=== PATIENT | male | born 1980 | race Caucasian/White ===

== ENCOUNTER → 2018-09-05 16:51 | Outpatient (CLI) | payer OTHER, SELFPAY ==
--- NOTE | 2018-09-05 | DI.MRI.S_ITS ---
PROCEDURE: MR LUMBAR SPINE WO CON INDICATIONS: Radiculopathy, site unspecified TECHNIQUE: Noncontrast sagittal T1 spin echo and T2 fast echo, sagittal STIR, axial T1 and T2 fast spin echo through the lumbar spine. In cases with scoliosis, additional coronal T2 fast spin echo may be performed. COMPARISON: [facility], MR, L-SPINE WITHOUT CONTRAST, 11/10/2015, 11:39. [facility], CT, IVP (ABD & PEL WWO CONTRAST), 09/29/2015, 10:43. [facility], CR, KUB XRAY (1 VIEW ABDOMEN), 04/05/2015, 12:47. [facility], MR, L-SPINE WITHOUT CONTRAST, 01/31/2017, 7:45. [facility], CR, L-SPINE 2-3 VIEWS, 08/01/2017, 1:29. FINDINGS: Image quality: Excellent. Alignment and Curvature: There is normal bony alignment. Bone Marrow: Marrow is of normal overall signal. No acute vertebral body compression fractures. Spinal Cord: Conus medullaris terminates at the L1 level. Visualized cord demonstrates normal signal and size. Paraspinous Soft Tissues: No paravertebral masses. T12-L1: Normal appearance. L1-L2: Normal appearance. L2-L3: Normal appearance. L3-L4: No significant abnormality is seen. L4-L5: The disc height and disk signal are well-preserved. Mild generalized disc bulge is seen. There is mild right-sided and mild to moderate left-sided neural foraminal narrowing seen. No significant central canal narrowing is seen. When comparison is made with the prior examination, these findings are similar. L5-S1: Bilateral pars defects are seen, without associated anterolisthesis. The pars defects are better seen on prior CT. IMPRESSION: Mild, stable lower lumbar spine degenerative changes are seen. L5 pars defects, which are much better seen on the prior CT examination. Dictated by: Flash Everett M.D. on 09/06/2018 at 8:14 Approved by: Flash Everett M.D. on 09/06/2018 at 8:19
== END ==
PROVIDERS: Family Provider Physical Medicine & Rehabilitation Pain Medicine; Visit Provider General Practice
DX: M47.26 Other spondylosis with radiculopathy, lumbar region (principal)
CPT/HCPCS: 72148

== ENCOUNTER 2019-12-22 15:02 | Emergency (ER) | payer OTHER, SELFPAY ==
[2019-12-22 15:26] VITALS: BP 132/81; PULSE 105; RESP 20; TEMP 36.7; O2SAT 98; BMI 29.0
[2019-12-22 15:49] LABS: Add Manual Diff / Slide Review NO; Basophils Absolute Auto 0 /uL (0-100); Basophils Percent Auto 0.4 % (0-2); Eosinophils Absolute Auto 0 /uL (0-450); Eosinophils Percent Auto 0.6 % (2-4); Hematocrit 44.7 % (41-53); Hemoglobin 15.5 g/dL (13.5-17.5); Lymphocytes Absolute Auto 1400 /uL (1100-4500); Lymphocytes Percent Auto 24.1 % (25-40); Mean Corpuscular HGB Conc 34.7 % (30-36); Mean Corpuscular Hemoglobin 32.9 PG (26-34); Mean Corpuscular Volume 94.8 fL (80-100); Monocytes Absolute Auto 300 /uL (0-900); Monocytes Percent Auto 5.6 % (3-14); Neutrophils Absolute Auto 4100 /uL (1500-7000); Neutrophils Percent Auto 69.3 % (50-75); Platelet Count 209 X10^3/uL (150-400); Red Blood Cell Count 4.71 X10^6/uL (4.5-5.9); Red Cell Distribution Width 12.9 % (11.6-14.8); White Blood Cell Count 5.9 X10^3/uL (4.5-11.0)
[2019-12-22 15:56] LABS: INR 0.9 (0.9-1.3); Prothrombin Time 10.9 SECONDS (10.1-12.7)
[2019-12-22 15:59] LABS: PTT Partial Thromboplastin Tim 31 SECONDS (26.4-36.2)
[2019-12-22 16:02] LABS: Alanine Aminotransferase 24 IU/L (<50); Albumin 4.7 g/dL (3.5-5.0); Albumin Globulin Ratio 1.6 (1.0-2.8); Alkaline Phosphatase 78 U/L (38-126); Aspartate Aminotransferase 27 IU/L (17-59); BUN Creatinine Ratio 7.5 (6-22); Bilirubin Total 0.8 mg/dL (0.2-1.3); Blood Urea Nitrogen 8 mg/dL (9-20); Calcium 9.4 mg/dL (8.4-10.2); Carbon Dioxide 28 mmol/L (22-32); Chloride 101 mmol/L (98-107); Estimated Glomerular Filt Rate > 60.0 mL/min (>60); Globulin 2.9 g/dL (1.7-4.1); Glucose 131 mg/dL (70-100); HEMOLYSIS 16 (0-50); Lipase 190 U/L (23-300); Potassium 3.8 mmol/L (3.4-5.1); Sodium 137 mmol/L (137-145); Total Protein 7.6 g/dL (6.3-8.2)
[2019-12-22] MEDS: KETOROLAC 60 MG/2 ML VIAL 15 MG IV (16:02)
[2019-12-22] MEDS: SODIUM CHLORIDE 0.9% 1,000 ML 1000 ML IV (16:03)
--- NOTE | 2019-12-22 16:18 | DI.CT.S_ITS ---
PROCEDURE: CT KIDNEY URETER BLADDER (KUB) INDICATIONS: Sudden onset left groin pain history of kidney stone surgery TECHNIQUE: Noncontrast 5 mm thick sections acquired from the diaphragms to the symphysis. 5 mm thick coronal and sagittal reformats were then performed. For radiation dose reduction, the following was used: automated exposure control, adjustment of mA and/or kV according to patient size. COMPARISON: None. FINDINGS: Image quality: Excellent. Lung bases: Lung bases are clear. Heart size is normal. Urinary system: Both kidneys are normal in size. No kidney stones. No hydronephrosis or perinephric fat stranding. Both ureters appear non-dilated throughout their expected courses. Bladder wall thickness is normal; no calcified bladder stones. Other solid organs: Liver is normal in size. Gallbladder appears normal . Pancreas is normal in contours. Spleen is normal in size. No adrenal nodules. Peritoneum and bowel: Unenhanced bowel loops demonstrate normal wall thickness and caliber. No free fluid or air. Nodes and vessels: No retroperitoneal or mesenteric adenopathy by size criteria. Aorta and inferior vena cava are normal in caliber. Abdominal wall: No ventral hernias. Pelvis: No free pelvic fluid. No inguinal hernias or adenopathy. Bones: No suspicious bony lesions. No vertebral body compression fractures. IMPRESSION: No urinary tract stone or hydronephrosis/hydroureter is found. Along the course of the ureters through the retroperitoneum no inflammatory process is seen. A source of reported sudden onset left-sided flank pain is not found. Dictated by: Bandar Adamson M.D. on 12/22/2019 at 16:54 Approved by: Bandar Adamson M.D. on 12/22/2019 at 16:56
[2019-12-22] MEDS: MORPHINE 4 MG/ML INJ IV (16:40)
[2019-12-22 19:46] VITALS: BP 129/78; PULSE 78; RESP 20; TEMP 36.8; O2SAT 97
[2019-12-22 20:23] VITALS: BP 143/77; PULSE 87; RESP 18; O2SAT 98
--- NOTE | 2019-12-23 00:18 | ED.ABDPAIN ---
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 Patient denies fever, chills, nausea or vomiting, or diarrhea. Patient denies urinary symptoms or history of diverticulitis. Patient actually has an appointment with Dr. Henry in January. He had last kidney stone of of 1-2 years ago. Patient reports his pain is same as previous kidney stone episodes. He reports pain as 8 to 9/10. Related Data Home Medications Medication Instructions Recorded Confirmed Resmed Airsense 10 CPAP #1 ea 10/02/18 10/02/18 fluoxetine 40 mg PO DAILY 12/22/19 12/22/19 Previous Rx's Medication Instructions Recorded hydrocodone-acetaminophen [Wanchese] 1 tab PO TID PRN #7 tab 12/22/19 Allergies Allergy/AdvReac Type Severity Reaction Status Date / Time Iodinated Contrast Media Allergy Severe ANAPHALAXIS Verified 12/22/19 15:28 [IODINATED CONTRAST- ORAL AND IV DYE] meloxicam [MELOXICAM] Allergy Intermediate RASH Verified 12/22/19 15:28 Review of Systems <SABINA Valerio - Last Filed: 12/23/19 00:45> Review of Systems Narrative: General: Denies fever, chills, fatigue, malaise, sweats. HEENT: Denies sinus pain, ear pain, sore throat, difficulty swallowing, dizziness. Respiratory: Denies dyspnea, cough, wheezing, hemoptysis, sputum. Cardiovascular: Denies chest pain, palpitations, orthopnea, edema. Gastrointestinal: See HPI : Denies dysuria, frequency, incontinence, hematuria, urinary retention. Musculoskeletal: Denies weakness, joint pain or bony pain. Skin: Denies rash, skin lesions, or other. Neurologic: Denies weakness, headache, numbness, change in speech, confusion, seizures, incoordination. Psychiatric: No concerning psychosocial issues. 12-point review of systems is negative except for those stated above. Patient History <SABINA Valerio - Last Filed: 12/23/19 00:45> Medical History Kidney stone (Acute) Social History Smoking Status: Former smoker Smoking Status: Former smoker tobacco type: vaping alcohol intake frequency: 0-2 drinks per day Substance Use Type: does not use Exam <SABINA Valerio - Last Filed: 12/23/19 00:45> Narrative Exam Narrative: GEN: Alert, oriented x 3, well nourished, and in moderate distress from discomfort. Head: Normal cephalic, atraumatic. No scalp or temporal tenderness, palpable mass or rash. EYES: Pupils are equal, round, and reactive to light and accommodation. Extraocular muscles are intact bilaterally. There is no subconjunctival hemorrhage, exudate and sclera non-icteric. ENT: Hearing grossly intact. Airway patent. Neck: Trachea in midline. No JVD, non-tender without lymphadenopathy. No masses or thyroid megaly. Supple, non-tender and no meningeal signs. CARDIAC: Normal regular rate and rhythm without murmurs, gallops, or rubs. No chest wall tenderness. No peripheral edema, cyanosis or pallor. Capillary refill is less than 2 seconds. RESPIRATORY: Lungs are clear to auscultate bilaterally. No cough, wheezes, rales, or rhonchi. No stridor, respiratory distress, increase work of breathing, or accessary muscle used. ABD: Abdomen soft and non-distended. Left lower quadrant/suprapubic tenderness to palpate. No guarding or rebound tenderness to palpate. Bowel sounds are normal in all 4 quadrants. There is no palpable masses or organomegaly. EXT: Full painless ROM of all extremities with no loss of sensation, strength, effusion or edema. SKIN: Warm, dry, normal color for patient. No erythema, lesions or rash over visible areas. BACK: Nontender without deformity or crepitance. No flank tenderness. NEUROLOGICAL: Alert and oriented to place, time and person. Sensation and motor function intact bilaterally. No facial droops, dysphasia. PSYCHIATRIC: Good judgement and reason, without hallucinations, abnormal affect or abnormal behaviors during the examination. Patient is not suicidal. Initial Vital Signs Initial Vital Signs: Vital Signs Temperature 98.1 F 12/22/19 15:26 Pulse Rate 105 H 12/22/19 15:26 Respiratory Rate 12/22/19 15:26 Blood Pressure 132/81 12/22/19 15:26 Pulse Oximetry 98 12/22/19 15:26 <Varsha Peres MD - Last Filed: 12/23/19 18:56> Initial Vital Signs Initial Vital Signs: Vital Signs Temperature 98.1 F 12/22/19 15:26 Pulse Rate 105 H 12/22/19 15:26 Respiratory Rate 12/22/19 15:26 Blood Pressure 132/81 12/22/19 15:26 Pulse Oximetry 98 12/22/19 15:26 Scores <SABINA Valerio - Last Filed: 12/23/19 00:45> GCS Priscilla coma scale eye opening: Spontaneous Priscilla coma scale verbal response: Orientated Priscilla coma scale motor response: Obey commands Priscilla coma scale total score: 15 Course <SABINA Valerio - Last Filed: 12/23/19 00:45> Orders Ordered: Discontinued Medications Sodium Chloride (Normal Saline 0.9%) 1,000 mls @ 1,000 mls/hr IV BOLUS ONE Stop: 12/22/19 17:00 Last Infusion: 12/22/19 19:23 Dose: 1,000 mls/hr Documented by: Admin: 12/22/19 16:03 Dose: 1,000 mls/hr Documented by: NIDIA Ketorolac Tromethamine (Toradol) 15 mg IV NOW ONE Stop: 12/22/19 15:43 Last Admin: 12/22/19 16:02 Dose: 15 mg Documented by: NIDIA Morphine Sulfate (Morphine) 4 mg IV NOW ONE Stop: 12/22/19 16:19 Last Admin: 12/22/19 16:40 Dose: 4 mg Documented by: NIDIA Vital Signs Vital signs: Vital Signs - 8 hr 12/22/19 19:46 12/22/19 20:23 Temperature 98.2 F Pulse Rate 78 87 Respiratory Rate 20 18 Blood Pressure 129/78 143/77 H Pulse Oximetry 97 98 <Varsha Peres MD - Last Filed: 12/23/19 18:56> Orders Ordered: Discontinued Medications Sodium Chloride (Normal Saline 0.9%) 1,000 mls @ 1,000 mls/hr IV BOLUS ONE Stop: 12/22/19 17:00 Last Infusion: 12/22/19 19:23 Dose: 1,000 mls/hr Documented by: Admin: 12/22/19 16:03 Dose: 1,000 mls/hr Documented by: NIDIA Ketorolac Tromethamine (Toradol) 15 mg IV NOW ONE Stop: 12/22/19 15:43 Last Admin: 12/22/19 16:02 Dose: 15 mg Documented by: NIDIA Morphine Sulfate (Morphine) 4 mg IV NOW ONE Stop: 12/22/19 16:19 Last Admin: 12/22/19 16:40 Dose: 4 mg Documented by: NIDIA Vital Signs Vital signs: Vital Signs - 8 hr 12/22/19 19:46 12/22/19 20:23 Temperature 98.2 F Pulse Rate 78 87 Respiratory Rate 20 18 Blood Pressure 129/78 143/77 H Pulse Oximetry 97 98 MDM - Abdominal Pain <SABINA Valerio - Last Filed: 12/23/19 00:45> Differential Diagnosis Differential diagnosis: Likely abdominal pain, calculus of kidney, diverticulitis, small bowel obstruction and other (Lymphadenopathy) Medical Records Attestation: I reviewed the patient's medical records. Lab Data Attestation: I reviewed the patient's lab results. Result diagrams: 12/22/19 15:40 12/22/19 15:40 Labs: Lab Results 12/22/19 12/22/19 12/22/19 Range/Units 15:40 15:40 15:40 WBC 5.9 (4.5-11.0) X10^3/uL RBC 4.71 (4.5-5.9) X10^6/uL Hgb 15.5 (13.5-17.5) g/dL Hct 44.7 (41-53) % MCV 94.8 (80-100) fL MCH 32.9 (26-34) PG MCHC 34.7 (30-36) % RDW 12.9 (11.6-14.8) % Plt Count 209 (150-400) X10^3/uL Neut % (Auto) 69.3 (50-75) % Lymph % (Auto) 24.1 L (25-40) % [place] % (Auto) 5.6 (3-14) % Eos % (Auto) 0.6 L (2-4) % Baso % (Auto) 0.4 (0-2) % Neut # (Auto) 4100 (0084-1820) /uL Lymph # (Auto) 1400 (1976-8702) /uL [place] # (Auto) 300 (0-900) /uL Eos # (Auto) 0 (0-450) /uL Baso # (Auto) 0 (0-100) /uL PT 10.9 (10.1-12.7) SECONDS INR 0.9 (0.9-1.3) APTT 31 (26.4-36.2) SECONDS Sodium 137 (137-145) mmol/L Potassium 3.8 (3.4-5.1) mmol/L Chloride 101 (98-107) mmol/L Carbon Dioxide 28 (22-32) mmol/L BUN 8 L (9-20) mg/dL Creatinine 1.07 (0.66-1.25) mg/dL Estimated GFR > 60.0 (>60) mL/min BUN/Creatinine Ratio 7.5 (6-22) Glucose 131 H (70-100) mg/dL Calcium 9.4 (8.4-10.2) mg/dL Total Bilirubin 0.8 (0.2-1.3) mg/dL AST 27 (17-59) IU/L ALT 24 (<50) IU/L Alkaline Phosphatase 78 (38-126) U/L Total Protein 7.6 (6.3-8.2) g/dL Albumin 4.7 (3.5-5.0) g/dL Globulin 2.9 (1.7-4.1) g/dL Albumin/Globulin Ratio 1.6 (1.0-2.8) Lipase 190 (23-300) U/L Point of care testing: Urine Dip Bedside Urine Glucose Negative Bedside Urine Bilirubin - Negative Bedside Urine Ketone +/- 5 Urine Specific [place] 1.015 Bedside Urine Occult Blood - Negative Bedside Urine pH 7.5 Bedside Urine Protein +/- 15 Bedside Urine Urobilinogen 2+ 4mg Bedside Urine Nitrite - Negative Bedside Urine Leukocytes - Negative Esterase Imaging Data CT-KUB: Radiologist's Impression: [address] [address] [address] Scan Report Signed Patient: Marino Moise [facility]#: [id number] : 1980Acct:[id number] Age/Sex: 39 / MDate of Service: 12/22/19 Loc: ED Accession Number: [id number] Procedure: CT kidney ureter bladder (KUB) Ordering Provider: Nicho Her PROCEDURE: CT KIDNEY URETER BLADDER (KUB) INDICATIONS: Sudden onset left groin pain history of kidney stone surgery TECHNIQUE: Noncontrast 5 mm thick sections acquired from the diaphragms to the symphysis. 5 mm thick coronal and sagittal reformats were then performed. For radiation dose reduction, the following was used: automated exposure control, adjustment of mA and/or kV according to patient size. COMPARISON: None. FINDINGS: Image quality: Excellent. Lung bases: Lung bases are clear. Heart size is normal. Urinary system: Both kidneys are normal in size. No kidney stones. No hydronephrosis or perinephric fat stranding. Both ureters appear non-dilated throughout their expected courses. Bladder wall thickness is normal; no calcified bladder stones. Other solid organs: Liver is normal in size. Gallbladder appears normal . Pancreas is normal in contours. Spleen is normal in size. No adrenal nodules. Peritoneum and bowel: Unenhanced bowel loops demonstrate normal wall thickness and caliber. No free fluid or air. Nodes and vessels: No retroperitoneal or mesenteric adenopathy by size criteria. Aorta and inferior vena cava are normal in caliber. Abdominal wall: No ventral hernias. Pelvis: No free pelvic fluid. No inguinal hernias or adenopathy. Bones: No suspicious bony lesions. No vertebral body compression fractures. IMPRESSION: No urinary tract stone or hydronephrosis/hydroureter is found. Along the course of the ureters through the retroperitoneum no inflammatory process is seen. A source of reported sudden onset left-sided flank pain is not found. Dictated by: Bandar Adamson M.D. on 12/22/2019 at 16:54 Approved by: Bandar Adamson M.D. on 12/22/2019 at 16:56 [facility] Narrative Medical decision making narrative: This is a 39-year-old gentleman who has multiple episodes of kidney stones and followed with a kidney stone surgery to remove large size kidney stone measured in 8 mm her patient presents to ED with left low quadrant pain which described as exactly same as previous kidney stone pain. Urine test does not show hematuria, or signs of infection. Given previous imaging tests were not done at [facility] Emergency room, KUB test was done. However, KUB test does not show kidney stone, hydronephrosis, or renal inflammation. Bladder without inflammation or stones. There is no free air and bowel loops appears to be normal wall thickness and caliber. No adenopathy appreciated in CT test with normal size aorta and inferior vena cava caliber. There is no inguinal hernia appreciated. Unremarkable lab tests including CBC and chemistry test including renal function test. Patient was medicated with Toradol, IVF hydration and morphine 4 mg which improved pain moderately. Findings were discussed with patient and unclear etiology of his left lower quadrant pain. In shared decision making, patient elected to monitor the symptoms and return to ED with worsening symptoms. Advised to take [id number] Tylenol and or Motrin as needed and Patient discharged to home with few tabs of Wanchese along narcotic medication precautions for severe pain and patient advised to follow-up with primary care physician to re-evaluate abdominal pain next couple of days. <Varsha Peres MD - Last Filed: 12/23/19 18:56> Lab Data Labs: Lab Results 12/22/19 12/22/19 12/22/19 Range/Units 15:40 15:40 15:40 WBC 5.9 (4.5-11.0) X10^3/uL RBC 4.71 (4.5-5.9) X10^6/uL Hgb 15.5 (13.5-17.5) g/dL Hct 44.7 (41-53) % MCV 94.8 (80-100) fL MCH 32.9 (26-34) PG MCHC 34.7 (30-36) % RDW 12.9 (11.6-14.8) % Plt Count 209 (150-400) X10^3/uL Neut % (Auto) 69.3 (50-75) % Lymph % (Auto) 24.1 L (25-40) % [place] % (Auto) 5.6 (3-14) % Eos % (Auto) 0.6 L (2-4) % Baso % (Auto) 0.4 (0-2) % Neut # (Auto) 4100 (5774-5831) /uL Lymph # (Auto) 1400 (0507-9614) /uL [place] # (Auto) 300 (0-900) /uL Eos # (Auto) 0 (0-450) /uL Baso # (Auto) 0 (0-100) /uL PT 10.9 (10.1-12.7) SECONDS INR 0.9 (0.9-1.3) APTT 31 (26.4-36.2) SECONDS Sodium 137 (137-145) mmol/L Potassium 3.8 (3.4-5.1) mmol/L Chloride 101 (98-107) mmol/L Carbon Dioxide 28 (22-32) mmol/L BUN 8 L (9-20) mg/dL Creatinine 1.07 (0.66-1.25) mg/dL Estimated GFR > 60.0 (>60) mL/min BUN/Creatinine Ratio 7.5 (6-22) Glucose 131 H (70-100) mg/dL Calcium 9.4 (8.4-10.2) mg/dL Total Bilirubin 0.8 (0.2-1.3) mg/dL AST 27 (17-59) IU/L ALT 24 (<50) IU/L Alkaline Phosphatase 78 (38-126) U/L Total Protein 7.6 (6.3-8.2) g/dL Albumin 4.7 (3.5-5.0) g/dL Globulin 2.9 (1.7-4.1) g/dL Albumin/Globulin Ratio 1.6 (1.0-2.8) Lipase 190 (23-300) U/L Point of care testing: Urine Dip Bedside Urine Glucose Negative Bedside Urine Bilirubin - Negative Bedside Urine Ketone +/- 5 Urine Specific [place] 1.015 Bedside Urine Occult Blood - Negative Bedside Urine pH 7.5 Bedside Urine Protein +/- 15 Bedside Urine Urobilinogen 2+ 4mg Bedside Urine Nitrite - Negative Bedside Urine Leukocytes - Negative Esterase Discharge Plan Departure Patient Disposition: Home Clinical Impression: Abdominal pain Qualifiers: Abdominal location: left lower quadrant Qualified Code(s): R10.32 - Left lower quadrant pain Discharge Date/Time: 12/22/19 20:24 Instructions: DI for Abdominal Pain-Adult Activity Restrictions/Additional Instructions: You have been diagnosed with [left lower quadrant pain. Lab tests are assuring. No indication for kidney stone, hydronephrosis, lymphadenopathy. ]. What to do: *Take your medications as directed. Please take [id number] Tylenol and or Motrin as needed for discomfort. For severe pain please take Wanchese which is narcotic pain medications. It can cause drowsiness so please do not drive, drink alcohol, or operate heavy equipments. It also cause constipation so please take precautions. *Follow up with your primary care provider in 2-3 days, call for an appointment. Let them know you were seen in the ED and that we asked you to be seen in follow up. *Return to ED if you have any new, worsening, or concerning symptoms, such as [chest pain, breathing difficulty, unable to tolerate fluids, worsening pain, fever or chills or any acute concerns]. Prescriptions: New hydrocodone-acetaminophen [[place]anchese] 5-325 mg tablet 1 tab PO TID PRN (Reason: pain) Qty: 7 RF: 0 No Action fluoxetine 40 mg capsule 40 mg PO DAILY RF: 0 (DME) Resmed Airsense 10 CPAP Qty: 1 RF: 0 Referrals: Tommy Brady MD [Primary Care Provider] - <Varsha Peres MD - Last Filed: 12/23/19 18:56> Cosign ED Attending Marquesature Attestation: I was immediately available in the department for consultation throughout this patient's visit. I agree with documentation as above. Varsha Peres MD
== END 2019-12-22 20:24 | disposition home or self-care (01) ==
PROVIDERS: Emergency Medicine; Emergency Provider Nurse Practitioner Family; Family Provider Physical Medicine & Rehabilitation Pain Medicine; PCP Physical Medicine & Rehabilitation Pain Medicine
DX: R10.32 Left lower quadrant pain (principal); Z87.442 Personal history of urinary calculi
CPT/HCPCS: 36415; 74176; 80053; 81003; 83690; 85025; 85610; 85730; 96361; 96374; 96375; 99284; J1885; J2270

== ENCOUNTER → 2020-04-15 08:41 | Outpatient (CLI) | payer OTHER, SELFPAY ==
--- NOTE | 2020-04-15 08:44 | DI.RAD.S_ITS ---
PROCEDURE: XR KUB INDICATIONS: kidney stones TECHNIQUE: One view of the abdomen acquired. COMPARISON: [facility], CT, CT KIDNEY URETER BLADDER (KUB), 12/22/2019, 16:27. [facility], CR, KUB XRAY (1 VIEW ABDOMEN), 04/05/2015, 12:47. FINDINGS: Surgical changes and devices: None. Bowel: Bowel gas pattern is normal. Soft tissues: No suspicious abdominal calcifications. Visualized solid organ contours appear normal in size. Bones: No suspicious bony lesions. IMPRESSION: No kidney stones demonstrated. Dictated by: Ellis Cardoso M.D. on 04/15/2020 at 8:16 Approved by: Ellis Cardoso M.D. on 04/15/2020 at 8:18
== END ==
PROVIDERS: Family Provider Physical Medicine & Rehabilitation Pain Medicine; Referring Provider Specialist; Visit Provider Specialist
DX: N20.0 Calculus of kidney (principal)
CPT/HCPCS: 74018

== ENCOUNTER → 2020-07-06 07:47 | Outpatient (CLI) | payer OTHER, SELFPAY ==
--- NOTE | 2020-07-06 08:26 | DI.ECHO.S_ITS ---
:Reason For Study: ABNORMAL EKG : :Ordering Physician: ANNE : :DANAE Performed By: Sofie Sargent : :Referring: DANAE RODRÍGUEZ : Interpretation Summary The left ventricle is normal in size and wall thickness. The ejection fraction is estimated to be 60-65%. Diastolic parameters suggest probable normal left ventricular diastolic function and normal filling pressures. The right ventricle is normal in size and function. Pulmonary artery pressures cannot be estimated because of the lack of a measurable TR jet velocity but the IVC suggests a CVP of around 3 mmHg. The left atrial size is normal. Right atrial size is normal. There is no significant valvular heart disease. The ascending aorta is mildly enlarged. Procedure: A two-dimensional transthoracic echocardiogram with color flow and Doppler was performed. The study quality was technically adequate. There is no prior echocardiogram noted for this patient. The patient was in sinus rhythm with heart rates between 73-98 bpm during the exam. Left Ventricle: The left ventricle is normal in size and wall thickness. The ejection fraction is estimated to be 60-65%. There are no focal wall motion abnormalities. Diastolic parameters suggest probable normal left ventricular diastolic function and normal filling pressures. Right Ventricle: The right ventricle is normal in size and function. Atria: The left atrial size is normal. Right atrial size is normal. There is no Doppler evidence for an interatrial shunt. Mitral Valve: The mitral valve is normal in structure and function. There is trace mitral regurgitation. Aortic Valve: The aortic valve is trileaflet. The aortic valve opens well. There is no aortic valve stenosis. There is trace aortic regurgitation. Tricuspid Valve: The tricuspid valve is normal in structure and function. No tricuspid regurgitation. Pulmonary artery pressures cannot be estimated because of the lack of a measurable TR jet velocity but the IVC suggests a CVP of around 3 mmHg. Pulmonic Valve: The pulmonic valve leaflets are thin and pliable; valve motion is normal. There is trace pulmonic regurgitation. There is no significant valvular heart disease. Great Vessels: The aortic root is normal size. The ascending aorta is mildly enlarged. The IVC is of normal diameter and collapses greater than 50% with a sniff. This suggests a low right atrial pressure of 3 mm Hg. Pericardium/ Pleura There is no pericardial effusion. There is no pleural effusion. MMode/2D Measurements & Calculations LVIDd: 5.1 cm LVOT diam: 2.2 cm LVIDs: 3.2 cm Ao root diam: 3.5 cm FS: 37.2 % asc Aorta Diam: 3.7 cm EPSS: 0.93 cm Ao Arch Diam (Prox Trans): 2.9 cm IVSd: 0.97 cm LVPWd: 0.82 cm LV cody. diameter/BSA (cm/m^2): 2.5 LV sys. diameter/BSA (cm/m^2): 1.6 LA A2 area: 17.7 cm2 RA long axis: 5.1 cm LA A4 area: 13.6 cm2 RA area: 13.6 cm2 LA length (vol): 4.6 cm RA vol: 30.8 ml LA vol: 44.0 ml RA : 15.3 ml/m2 LA vol index: 21.8 ml/m2 IVC diam: 1.4 cm RVD1 (basal): 3.2 cm TAPSE: 2.2 cm Doppler Measurements & Calculations Ao V2 max: 111.0 cm/sec LVOT Max [place]: 103.9 cm/sec Ao V2 mean: 76.2 cm/sec LV V1 max P.3 mmHg Ao max P.9 mmHg LV V1 VTI: 21.4 cm Ao mean P.6 mmHg AROLDO(I,D): 3.6 cm2 Ao V2 VTI: 21.5 cm AROLDO(V,D): 3.4 cm2 sev ratio: 0.99 AROLDO indexed to BSA (cm^2/m^2): 1.8 MV E max [place]: 67.8 cm/sec PA V2 max: 55.2 cm/sec MV A max [place]: 56.2 cm/sec PA V2 mean: 36.5 cm/sec MV E/A: 1.2 PA mean P.62 mmHg Med Peak E' [place]: 7.4 cm/sec PA pr(Accel): 37.9 mmHg E/E' med: 9.1 Lat Peak E' [place]: 10.8 cm/sec E/E' lat: 6.3 E/e' average: 7.7 MV dec time: 0.18 sec SV(LVOT): 78.0 ml Reading Physician:05:29 PM
== END ==
PROVIDERS: Family Provider Physical Medicine & Rehabilitation Pain Medicine; Referring Provider Orthopaedic Surgery; Visit Provider Orthopaedic Surgery
DX: R94.31 Abnormal electrocardiogram [ECG] [EKG] (principal); I77.89 Other specified disorders of arteries and arterioles
CPT/HCPCS: 93306

== ENCOUNTER → 2020-09-17 13:41 | Outpatient (CLI) | payer OTHER, SELFPAY ==
[2020-09-17] MEDS: COVID-19 VACC, Ad26(JANSSEN)/PF 0.5 ML IM (13:49)
== END ==
PROVIDERS: Visit Provider Internal Medicine
DX: Z23 Encounter for immunization (principal)
CPT/HCPCS: 0031A; 91303

== ENCOUNTER 2020-09-17 20:01 | Emergency (ER) | payer OTHER, SELFPAY ==
[2020-09-17 20:03] VITALS: BP 134/78; PULSE 100; RESP 16; TEMP 36.6; O2SAT 98; BMI 30.5
[2020-09-17] MEDS: HYDROCODONE/ACET 5/325 PREPACK 1 BOTTLE MISC (20:42)
[2020-09-17] MEDS: BACITRACIN OINT 0.9 GM PCKT 1 APPLIC TOP (20:59)
[2020-09-17] MEDS: LIDO 1%/SOD BICARB 8.4% (10ML) 10 ML SYRINGE INJ (20:59)
--- NOTE | 2020-09-18 06:18 | ED.UPPEXIN ---
HPI - Extremity Injury (Upper) General Chief Complaint: Extremity Injury, Upper Stated Complaint: left thumb nail was taken off Time Seen by Provider: 09/17/20 20:08 Source: patient Mode of arrival: Ambulatory Limitations: no limitations History of Present Illness HPI narrative: 40-year-old male daily smoker with noncontributory medical history presents with a chief complaint of an injury to the left thumb just prior to arrival. He was trying to loosen a ratchet did tied down when it released quickly and slammed on to his left thumb, lifting the nail a bit, causing pain and minimal bleeding. He has minimal numbness on the lateral aspect of the thumb. Tetanus will need to be updated. He has pain with range of motion and improvement with rest. MD complaint: injury to: left and finger Onset (ago): hour(s) Other Extremity Injury: Left: fingers Other injuries: none Handedness: right Place: home Severity: mild Relieving factors: rest Exacerbating factors: movement of extremity Context: direct blow Associated symptoms: denies other symptoms Related Data Home Medications Medication Instructions Recorded Confirmed Resmed Airsense 10 CPAP #1 ea 10/02/18 06/21/20 fluoxetine 40 mg PO DAILY 12/22/19 06/21/20 potassium citrate 15 mEq (1,620 15 meq PO BID 03/09/20 06/21/20 mg) tablet,extended release Previous Rx's Medication Instructions Recorded tamsulosin 0.4 mg capsule 0.4 mg PO BEDTIME #90 cap 03/09/20 tamsulosin 0.4 mg capsule 0.4 mg PO BEDTIME #90 cap 06/21/20 hydrocodone-acetaminophen 1 tab PO Q4-6H PRN #10 tab 09/17/20 Allergies Allergy/AdvReac Type Severity Reaction Status Date / Time Iodinated Contrast Media Allergy Severe ANAPHALAXIS Verified 09/17/20 20:06 [IODINATED CONTRAST- ORAL AND IV DYE] meloxicam [MELOXICAM] Allergy Intermediate RASH Verified 09/17/20 20:06 Review of Systems Constitutional Constitutional: Denies chills, Denies fatigue, Denies fever(s), Denies frequent falls, Denies lethargy and Denies weakness Eyes Eyes: Denies change in vision, Denies eye discharge, Denies irritation and Denies loss of vision ENT Ears, Nose, Mouth, and Throat: Denies change in voice, Denies dizziness, Denies neck pain, Denies sore throat and Denies throat swelling Cardiovascular Cardiovascular: Denies chest pain, Denies irregular heart rhythm, Denies lightheadedness, Denies palpitations, Denies dyspnea, Denies dyspnea on exertion and Denies orthopnea Respiratory Respiratory: Denies cough, Denies dyspnea, Denies dyspnea on exertion and Denies wheezing Gastrointestinal Gastrointestinal: Denies abdominal pain, Denies change in bowel habits, Denies diarrhea, Denies nausea and Denies vomiting Musculoskeletal Musculoskeletal: Reports arthralgias, Denies neck pain and Denies numbness Integumentary/Breasts Skin/Breast: Denies pruritus, Denies erythema, Denies rash and Denies wounds Neurologic Neurologic: Denies behavioral changes, Denies confusion, Denies dizziness, Denies frequent falls, Denies loss of vision, Denies numbness and Denies weakness Psychiatric Psychiatric: Denies anxiety, Denies behavioral changes, Denies confusion, Denies depression, Denies homicidal ideation and Denies suicidal ideation Endocrine Endocrine: Denies fatigue, Denies flushing and Denies palpitations Hematologic/Lymphatic Hematologic/Lymphatic: Denies easy bruising Allergic/Immunologic Allergic/Immunologic: Denies urticaria, Denies throat swelling and Denies wheezing Patient History Medical History BPH w urinary obs/LUTS History of nephrolithiasis Kidney stone Migraine Family History Sister Migraines CVA (cerebral vascular accident) Social History marital status: number of children: 2 Smoking Status: Current every day smoker Tobacco: How many years used: 6 Smokeless tobacco user: other Smoking Status: Current every day smoker tobacco type: vaping alcohol intake frequency: 0-2 drinks per day Substance Use Type: does not use Exam Narrative Exam Narrative: GEN: AOx3 and in mild distress EYES: Pupils are equal, round, and reactive to light and accommodation. Extraoccular muscles are intact bilaterally. There is no subconjunctival hemorrhage or exudate. CHEST: Lungs are clear to auscultation bilaterally and free of wheezes, rales, or rhonchi. Heart rate is regular rhythm, there are no murmurs, clicks, rubs, or gallops. There is no chest wall tenderness. ABD: Abdomen is soft and nontender. There is no guarding or rebound. Bowel sounds are normal in all 4 quadrants. There is no mass or organomegaly. EXT: Full but painful range of motion of the left thumb, no obvious deformity. The proximal edge of the nail is exposed and from the nail fold. THere is no subungual hematoma or evidence of nailbed laceration. SKIN: Warm, pink, and dry. No erythema or rash Initial Vital Signs Initial Vital Signs: Vital Signs Temperature 97.9 F 09/17/20 20:03 Pulse Rate 100 H 09/17/20 20:03 Respiratory Rate 16 09/17/20 20:03 Blood Pressure 134/78 09/17/20 20:03 Pulse Oximetry 98 09/17/20 20:03 Procedures Nerve Block Nerve Block 1: Time out performed: Yes Local Anesthetic: lidocaine 1% and with bicarb Amount of anesthesia used (mL): 3 Side: left Nerve Blocks: digital Procedure Successful: Yes Patient Tolerated Procedure: Well Complications: none Additional Comments: gentle attempt at talking nail back under fold but this is not easily accomplished. Finger wrapped and splinted with instructions for follow-up Course Orders Ordered: Discontinued Medications Hydrocodone Bitart/Acetaminophen (Hydrocodone/Acet 5/325 Prepack) 1 bottle MISC SEEINSTR ONE Stop: 09/17/20 20:30 Last Admin: 09/17/20 20:42 Dose: 1 bottle Documented by: [email or web address] Bacitracin (Bacitracin Oint 0.9 Gm Pckt) 1 applic TOP NOW ONE Stop: 09/17/20 20:44 Last Admin: 09/17/20 20:59 Dose: 1 applic Documented by: [email or web address] Lidocaine/Sodium Bicarbonate (Lido 1%/Sod Bicarb 8.4% (10ml) 10 Ml Syringe) 10 ml INJ NOW ONE Stop: 09/17/20 20:13 Last Admin: 09/17/20 20:59 Dose: 10 ml Documented by: [email or web address] Discharge Plan Departure Patient Disposition: Home Clinical Impression: Injury of thumb, left Qualifiers: Encounter type: initial encounter Qualified Code(s): S69.92XA - Unspecified injury of left wrist, hand and finger(s), initial encounter Instructions: DI for Nail Bed Injury Activity Restrictions/Additional Instructions: *You have been diagnosed with [left thumb injury with nailfold involvement ] *What to do: *Please continue to take your regular medications as directed. [ ] New medication prescriptions sent to your pharmacy: [ ] [x] New medication written as a paper prescription [ ] No new medications given *Please follow up with your primary care provider in 2-3 days, call for an appointment. Let them know you were seen in the Emergency Department and that we ask that you be seen in follow up. We will electronically transmit a record of today's note if your PCP is in our system *If you do not have a primary care provider please contact the [facility] Resource line at [phone]. They will ask some questions about your medical history and help get you set up with a doctor in the community. *Return to Emergency Department if you should have any new, worsening or concerning symptoms, such as [fever greater than 101 F, shaking chills, worsening pain, persistent vomiting or other bothersome symptoms] Prescriptions: New hydrocodone-acetaminophen 5-325 mg tablet 1 tab PO Q4-6H PRN (Reason: pain) Qty: 10 RF: 0 No Action fluoxetine 40 mg capsule 40 mg PO DAILY RF: 0 (DME) Resmed Airsense 10 CPAP Qty: 1 RF: 0 tamsulosin 0.4 mg capsule 0.4 mg PO BEDTIME Qty: 90 RF: 3 potassium citrate 15 mEq tablet extended release 15 meq PO BID RF: 0 tamsulosin 0.4 mg capsule 0.4 mg PO BEDTIME Qty: 90 RF: 3 Referrals: Marino Santacruz MD [Physician] -
== END 2020-09-17 21:01 | disposition home or self-care (01) ==
PROVIDERS: Emergency Provider Emergency Medicine
DX: S69.92XA Unspecified injury of left wrist, hand and finger(s), initial encounter (principal); X58.XXXA Exposure to other specified factors, initial encounter
CPT/HCPCS: 64450; 99283

== ENCOUNTER → 2021-02-22 09:35 | Outpatient (CLI) | payer OTHER, SELFPAY ==
--- NOTE | 2021-02-22 09:37 | DI.RAD.S_ITS ---
PROCEDURE: XR ELBOW RT MIN 3V INDICATIONS: Right elbow pain TECHNIQUE: 3 views of the elbow were acquired. COMPARISON: None. FINDINGS: Bones: No fractures or dislocations. No suspicious bony lesions. Soft tissues: No elbow joint effusion. No suspicious soft tissue calcifications. IMPRESSION: No acute osseous abnormality. Dictated by: Jerad Brothers M.D. on 02/22/2021 at 10:39 Approved by: Jerad Brothers M.D. on 02/22/2021 at 10:40
== END ==
PROVIDERS: PCP Family Medicine; Referring Provider Family Medicine; Visit Provider Family Medicine
DX: M25.521 Pain in right elbow (principal)
CPT/HCPCS: 73080

== ENCOUNTER → 2021-03-21 08:13 | Outpatient (CLI) | payer OTHER, SELFPAY ==
[2021-03-21 08:52] LABS: Add Manual Diff / Slide Review NO; Basophils Absolute Auto 0 /uL (0-100); Basophils Percent Auto 0.6 % (0-2); Eosinophils Absolute Auto 100 /uL (0-450); Eosinophils Percent Auto 1.4 % (2-4); Hematocrit 44.6 % (41-53); Hemoglobin 15.5 g/dL (13.5-17.5); Lymphocytes Absolute Auto 1500 /uL (1100-4500); Lymphocytes Percent Auto 30.3 % (25-40); Mean Corpuscular HGB Conc 34.6 % (30-36); Mean Corpuscular Hemoglobin 32.3 PG (26-34); Mean Corpuscular Volume 93.3 fL (80-100); Monocytes Absolute Auto 400 /uL (0-900); Monocytes Percent Auto 7.8 % (3-14); Neutrophils Absolute Auto 3000 /uL (1500-7000); Neutrophils Percent Auto 59.9 % (50-75); Platelet Count 203 X10^3/uL (150-400); Red Blood Cell Count 4.78 X10^6/uL (4.5-5.9)
[2021-03-21 09:39] LABS: TSH w/ Reflex to FT4 1.14 uIU/mL (0.47-4.68)
[2021-03-21 09:41] LABS: Alanine Aminotransferase 35 IU/L (<50); Albumin 4.5 g/dL (3.5-5.0); Albumin Globulin Ratio 1.8 (1.0-2.8); Alkaline Phosphatase 82 U/L (38-126); Aspartate Aminotransferase 28 IU/L (17-59); BUN Creatinine Ratio 11.9 (6-22); Bilirubin Total 1.1 mg/dL (0.2-1.3); Blood Urea Nitrogen 10 mg/dL (9-20); Calcium 9.6 mg/dL (8.4-10.2); Carbon Dioxide 26 mmol/L (22-32); Chloride 103 mmol/L (98-107); Cholesterol 196 mg/dL (140-199); Estimated Glomerular Filt Rate > 60.0 mL/min (>60); Globulin 2.5 g/dL (1.7-4.1); Glucose 86 mg/dL (70-100); HDL Cholesterol 44 mg/dL (40-60); HEMOLYSIS 16 (0-50); LDL Cholesterol Calculated 108 mg/dL (<100); Potassium 4.4 mmol/L (3.4-5.1); Sodium 137 mmol/L (137-145); Triglycerides 219 mg/dL (35-150)
== END ==
PROVIDERS: PCP Family Medicine; Referring Provider Family Medicine; Visit Provider Family Medicine
DX: F32.A Depression, unspecified (principal); N13.8 Other obstructive and reflux uropathy; N40.1 Benign prostatic hyperplasia with lower urinary tract symptoms; R73.9 Hyperglycemia, unspecified
CPT/HCPCS: 36415; 80053; 80061; 84443; 85025

== ENCOUNTER 2021-05-17 09:00 | Outpatient (RCR) | payer OTHER, SELFPAY ==
--- NOTE | 2021-04-05 16:03 | PT.OIE ---
Current Diagnoses Pain in right elbow (04/05/21) Past Medical History (Last Updated 03/20/21 @ 21:04 by Emilie Kaur) Acne BPH w urinary obs/LUTS Chronic back pain (~1998) Fecal incontinence (~2014) GERD (gastroesophageal reflux disease) (~2017) Gout (~2009) Headache (~2006) Hearing loss (~2011) History of nephrolithiasis History of tonsillectomy (~2014) History of urinary incontinence (~2009) Irritable bowel syndrome (~2014) Kidney stone (~2000) Migraine (~2009) PTSD (post-traumatic stress disorder) (~2011) Rosacea Shoulder pain Sleep apnea (~2017) Tinnitus (~2016) Trigger finger (~2019) Vertigo (~2017) Vision disorder Past Surgical History (Last Updated 03/20/21 @ 21:04 by Emilie Kaur) Anesthesia History of nephrolithotomy with removal of calculi History of tonsillectomy (~2014) Visit Care Team Role Provider Type Aravind Mederos MD Attending Provider Physician Family Provider Primary Care Provider Referring Provider Specialty: [facility] Address: [address] [place] [address] Email: [email or web address] Physical Therapy Initial Evaluation PT-OP-A Visit Information Start: 04/01/21 17:40 Freq: Status: Active Protocol: Document 04/05/21 10:43 LRN (Rec: 04/05/21 12:19 LRN [id number]) Out-Patient Physical Therapy Visit Information Visit Information Visit Type Initial Evaluation Visit Start Time 10:43 Visit Stop Time 11:29 Total Visit Minutes 46 Visit Number 1 Evaluation Information Evaluation Date 04/05/21 Precautions Precautions Vertigo with history of falls, depression & anxiety controlled by medications. PT-OP-B Current Condition Start: 04/01/21 17:40 Freq: Status: Active Protocol: Document 04/05/21 10:43 LRN (Rec: 04/05/21 12:19 LRN [id number]) Current Condition History of Current Condition Onset Date 5-6 months ago Current Complaints R elbow pain History of Current Condition R elbow pain of insidious onset. Waking with trigger finger of R hand 4th and 3rd finger, a few days after started having R elbow pain. No tape allergies. Prior Treatments and Tests X-ray R elbow: No acute osseous abnormality. Future Testing and Treatments Planned none Developmental History Developmental History 1 yr ago similar onset, and lasted a few weeks. Pain lasted for 30-40' and then would go away. 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 Pt has history of constant back problems that he gets nerve ablation (L5 and below). Treatment Goals Patient/Caregiver Goals Pt goal is to reduce or eliminate the pain with activities (anytime arm is used). Prior Functional Status Baseline Function- ADL's Independent Baseline Function- Mobility Independent Baseline Function- Work/School Retired from [employer]. 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 Current Functional Impairments (Reported) Functional Limitations- ADL's Interfers with ability to machine whitener cell phone, (able if arm is close to body) but if arm is reaching out the pain is worse . If sits idle and move the elbow pops at lateral side of olecranon process. Pain removing jacket, dressing , brushing teeth, anything requiring grasping with arm extended. Not as bad if arm not extended. Grasping is when it is panful, or if extending arm without grasping it hurts. Functional Limitations- Work/School Same as above: Retired from [employer]. 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 Personal Factors Other Personal Factors That May Effect Lives Fithian. 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 Vertigo with falls (not in recent 3-4 months), falls forward on stairs. Takes Prosaic for depression & anxiety. PT-OP-C Subjective Start: 04/01/21 17:40 Freq: Status: Active Protocol: Document 04/05/21 10:43 LRN (Rec: 04/05/21 12:19 LRN [id number]) Patient Questionnaires Quick Dash- Upper Extremity Quick Dash UE Score 54.54 Quick Dash UE Impairment 40 to 59% Impaired (Score 40- 59) OP-PT Pain Assessment Pain Assessment Grid Paper Pain Assessment Grid Completed Yes Location R elbow Intensity 5 Scale Used Numeric (0 - 10) Description Dull,Tender Frequency Constant Pain Aggravating Factors Changing Position Other Pain Aggravating Factors Extension of elbow Pain Alleviating Factors Cold,Heat Other Pain Alleviating Factors Over the counter TNS unit ( above/below elbow) that is sometimes helpful. PT-OP-H Neuro Start: 04/01/21 17:40 Freq: Status: Active Protocol: Document 04/05/21 10:43 LRN (Rec: 04/05/21 12:19 LRN [id number]) Sensation Evaluation Gross Sensation Gross Sensation WNL PT-OP-J Posture/Palpation/Skin Start: 04/01/21 17:40 Freq: Status: Active Protocol: Document 04/05/21 10:43 LRN (Rec: 04/05/21 12:19 LRN [id number]) Palpation Assessment Location Forearm Palpation Location upper 1/3 of forearm Palpation Findings Edema Palpation Details Girth measurement: 30cm right , 29 cm left. R wrist Palpation Location R wrist Palpation Details No pain R elbow Palpation Location R Lateral epicondyle Palpation Findings Tenderness Palpation Details Mild increase temperature Girth measurement: 18.8 cm right, 18 cm left PT-OP-K Range of Motion Start: 04/01/21 17:40 Freq: Status: Active Protocol: Document 04/05/21 10:43 LRN (Rec: 04/05/21 12:19 LRN [id number]) Elbow/Forearm Range of Motion Elbow/Forearm Right Active Elbow/Forearm ROM WFL No ROM Testing Position Sitting Elbow Flexion (degrees) 130 Elbow Extension (degrees) 43 Pronation (degrees) 90 Supination (degrees) 85 Comments (Extension lacks 43 deg's to neutral). Left Active Elbow/Forearm ROM WFL Yes ROM Testing Position Sitting Elbow Flexion (degrees) 137 Elbow Extension (degrees) 0 Pronation (degrees) 90 Supination (degrees) 85 Wrist Goniometric Range of Motion Wrist Right Wrist ROM WFL No Flexion Active (degrees) 40 Left Wrist ROM WFL Yes Extension Active (degrees) 55 ROM Limitations Wrist Limitations of Range of Motion Pain Comments Wrist extension with elbow straight : 38 deg's right, 58 deg's left. Above AROM is with elbow at 90 deg's flexion. PT-OP-M Strength Start: 04/01/21 17:40 Freq: Status: Active Protocol: Document 04/05/21 10:43 LRN (Rec: 04/05/21 12:19 LRN [id number]) Wrist Strength Wrist Manual Muscle Testing Right Comments generally 5/5 Minimal pain with testing of wrist flex/ext/supine Tested with elbow at sides. Left Comments generally 5/5 PT-OP-Q Treatments Start: 04/01/21 17:40 Freq: Status: Active Protocol: Document 04/05/21 10:43 LRN (Rec: 04/05/21 12:19 LRN [id number]) Self-Care/Home Management Treatment Education Patient Education Joint Protection,Pain Management Other Education Discussed results of evaluation, goals, and plan of care (POC). Pt agreeable to goals and POC. Educated pt in edema/pain management using cryotherapy and rest. Discussed nighttime positioning to avoid positioning in protective manner and use of pillows to prevent partial stomach lying. Discussed neck positioniing and effects on UE. Activities Self-Care/Home Management Activities Issued & reviewed handout for edema managment (CAROL ANN). PT-OP-T Assessment and Plan Start: 04/01/21 17:40 Freq: Status: Active Protocol: Document 04/05/21 10:43 LRN (Rec: 04/05/21 12:19 LRN [id number]) Physical Therapy Assessment Rehab Potential Rehabilitation Potential Good Evaluation Complexity Number of Personal Factors/Comorbidities 1-2 Number of Body Systems Impaired 4 or More Clinical Presentation at Evaluation Evolving Impairments Impairments Activity Tolerance,Functional Mobility,Pain,ROM Goals Three Impairment Decreased R UE function due to R elbow pain (rated 5/10). Impairment UE QuickDASH Score - 54.54 (40 -59% impaired 40-59) Short Term Goal (STG) Improve R elbow AROM with pt able to reach forward to picker operator cell phone with minimal to no pain. STG Duration 05/19/21 Prison Goal (LTG) Improve R UE function per UE QuickDASH score of 19 or less (1-19% impaired, score 1-19), with pt able to dress, and brush his teeth with minimal to no pain. LTG Duration 07/04/21 Two Impairment Decreased painfree R elbow AROM Impairment R elbow painfree AROM: 43-130 deg's L elbow AROM: 0-137 deg's. Short Term Goal (STG) Decrease R elbow pain at rest to 0/10 with elbow in mild flexion of 43 deg's or less, and be able to move the arm after sitting idle with minimal to no pain. STG Duration 05/19/21 Prison Goal (LTG) Decrease R elbow pain to 0/10 with elbow in full extension to be able to don/doff jacket without pain. LTG Duration 07/04/21 One Impairment Pt lacks appropriate self care HEP. Short Term Goal (STG) Pt will be educate in proper posturing for sitting and working at computer. STG Duration 05/19/21 Concrete Handler Goal (LTG) Pt will be independent in a self care HEP. LTG Duration 07/04/21 Assessment Summary Assessment Pt presents with signs and symptoms of R arm Lateral epicondylitis and possible cervical involvement due to worst pain on waking in a position of L sidelie or partially prone with head turned left. He is limited by R lateral elbow pain anytime he extends the elbow to use his hand and presents with protective posturing of the R arm. The pt uses his hands for typing daily, hindering his recovery. In addition he appears to have edema in his R forearm with decreased use of the arm. The pt will benefit from skilled physical therapy to decrease his R elbow pain and improve use of the R UE with decrease in swelling and inflammation in the forearm and the lateral epicondyle. Pt will also benefit from education on proper posturing, body mechanics at his computer, sleeping positions, and modality use for pain management. Physical Therapy Plan Frequency and Duration Frequency of Treatment 2x/Week Plan of Care Start Date 04/05/21 Plan of Care End Date 05/19/21 Therapeutic Interventions Therapeutic Interventions Aquatic Therapy,Home Exercise Program,Joint Mobilizations, Manual Therapy,Neuromuscular Re-education,Patient/Caregiver Education,Self-Care/Home Management,Soft Tissue Mobilization,Taping, Therapeutic Exercises Modalities Cold Pack/Ice Massage,Electric Stimulation,Hot Packs, Traction- Mechanical, Ultrasound Next Visit Focus/Plan Next Note Type Treatment Note Next Visit Plan Assess elbow strength and wrist mobility, and further assessment for possible cervical involvement. Ultrasound, STM of wrist extensors and start of ROM stretch to R wrist and elbow. Strengthening as pain is reduced. HEP.
--- NOTE | 2021-04-05 16:04 | PT.OPPOC ---
Physical, Occupational & Speech Therapy At [facility] Current Diagnoses Pain in right elbow (04/05/21) Visit Care Team Role Provider Type Aravind Mederos MD Attending Provider Physician Family Provider Primary Care Provider Referring Provider Specialty: Family Practice Address: [address] [place] [address], [id number] Email: [email or web address] Plan Of Care PT-OP-T Assessment and Plan Start: 04/01/21 17:40 Freq: Status: Active Protocol: Document 04/05/21 10:43 LRN (Rec: 04/05/21 12:19 LRN [id number]) Physical Therapy Assessment Rehab Potential Rehabilitation Potential Good Evaluation Complexity Number of Personal Factors/Comorbidities 1-2 Number of Body Systems Impaired 4 or More Clinical Presentation at Evaluation Evolving Impairments Impairments Activity Tolerance,Functional Mobility,Pain,ROM Goals Three Impairment Decreased R UE function due to R elbow pain (rated 5/10). Impairment UE QuickDASH Score - 54.54 (40 -59% impaired 40-59) Short Term Goal (STG) Improve R elbow AROM with pt able to reach forward to bulk picker cell phone with minimal to no pain. STG Duration 05/19/21 Alf Goal (LTG) Improve R UE function per UE QuickDASH score of 19 or less (1-19% impaired, score 1-19), with pt able to dress, and brush his teeth with minimal to no pain. LTG Duration 07/04/21 Two Impairment Decreased painfree R elbow AROM Impairment R elbow painfree AROM: 43-130 deg's L elbow AROM: 0-137 deg's. Short Term Goal (STG) Decrease R elbow pain at rest to 0/10 with elbow in mild flexion of 43 deg's or less, and be able to move the arm after sitting idle with minimal to no pain. STG Duration 05/19/21 Alf Goal (LTG) Decrease R elbow pain to 0/10 with elbow in full extension to be able to don/doff jacket without pain. LTG Duration 07/04/21 One Impairment Pt lacks appropriate self care HEP. Short Term Goal (STG) Pt will be educate in proper posturing for sitting and working at computer. STG Duration 05/19/21 Marketing Ambassador Goal (LTG) Pt will be independent in a self care HEP. LTG Duration 07/04/21 Assessment Summary Assessment Pt presents with signs and symptoms of R arm Lateral epicondylitis and possible cervical involvement due to worst pain on waking in a position of L sidelie or partially prone with head turned left. He is limited by R lateral elbow pain anytime he extends the elbow to use his hand and presents with protective posturing of the R arm. The pt uses his hands for typing daily, hindering his recovery. In addition he appears to have edema in his R forearm with decreased use of the arm. The pt will benefit from skilled physical therapy to decrease his R elbow pain and improve use of the R UE with decrease in swelling and inflammation in the forearm and the lateral epicondyle. Pt will also benefit from education on proper posturing, body mechanics at his computer, sleeping positions, and modality use for pain management. Physical Therapy Plan Frequency and Duration Frequency of Treatment 2x/Week Plan of Care Start Date 04/05/21 Plan of Care End Date 05/19/21 Therapeutic Interventions Therapeutic Interventions Aquatic Therapy,Home Exercise Program,Joint Mobilizations, Manual Therapy,Neuromuscular Re-education,Patient/Caregiver Education,Self-Care/Home Management,Soft Tissue Mobilization,Taping, Therapeutic Exercises Modalities Cold Pack/Ice Massage,Electric Stimulation,Hot Packs, Traction- Mechanical, Ultrasound Next Visit Focus/Plan Next Note Type Treatment Note Next Visit Plan Assess elbow strength and wrist mobility, and further assessment for possible cervical involvement. Ultrasound, STM of wrist extensors and start of ROM stretch to R wrist and elbow. Strengthening as pain is reduced. HEP. Plan of Care Dates Plan of Care Start Date 04/05/21 Plan of Care End Date 05/19/21 Electronically Signed by: Vivi Lora, PT 04/07/21 [id number] Please Sign and Return: I have reviewed this Plan of Care and certify that the skilled therapy services above are required to meet the patient?s needs. Physician Signature Date Printed Name and Credentials Clinical Instructor Signature Printed Name and Credentials
--- NOTE | 2021-04-08 13:59 | PT.OTN ---
Current Diagnoses Pain in right elbow (04/08/21) Physical Therapy Treatment Note PT-OP-A Visit Information Start: 04/01/21 17:40 Freq: Status: Active Protocol: Document 04/08/21 12:50 LRN (Rec: 04/08/21 13:53 LRN [id number]) Out-Patient Physical Therapy Visit Information Visit Information Visit Type Progress Note Visit Start Time 12:50 Visit Stop Time 13:33 Total Visit Minutes 43 Visit Number 2 Evaluation Information Evaluation Date 04/05/21 Precautions Precautions Vertigo with history of falls, depression & anxiety controlled by medications. PT-OP-B Current Condition Start: 04/01/21 17:40 Freq: Status: Active Protocol: Document 04/05/21 10:43 LRN (Rec: 04/05/21 12:19 LRN [id number]) Current Condition History of Current Condition Onset Date 5-6 months ago Current Complaints R elbow pain History of Current Condition R elbow pain of insidious onset. Waking with trigger finger of R hand 4th and 3rd finger, a few days after started having R elbow pain. No tape allergies. Prior Treatments and Tests X-ray R elbow: No acute osseous abnormality. Future Testing and Treatments Planned none Developmental History Developmental History 1 yr ago similar onset, and lasted a few weeks. Pain lasted for 30-40' and then would go away. 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 Pt has history of constant back problems that he gets nerve ablation (L5 and below). Treatment Goals Patient/Caregiver Goals Pt goal is to reduce or eliminate the pain with activities (anytime arm is used). Prior Functional Status Baseline Function- ADL's Independent Baseline Function- Mobility Independent Baseline Function- Work/School Retired from [employer]. 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 Current Functional Impairments (Reported) Functional Limitations- ADL's Interfers with ability to show card letterer cell phone, (able if arm is close to body) but if arm is reaching out the pain is worse . If sits idle and move the elbow pops at lateral side of olecranon process. Pain removing jacket, dressing , brushing teeth, anything requiring grasping with arm extended. Not as bad if arm not extended. Grasping is when it is panful, or if extending arm without grasping it hurts. Functional Limitations- Work/School Same as above: Retired from [employer]. 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 Personal Factors Other Personal Factors That May Effect Lives [place]. 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 Vertigo with falls (not in recent 3-4 months), falls forward on stairs. Takes Prosaic for depression & anxiety. PT-OP-C Subjective Start: 04/01/21 17:40 Freq: Status: Active Protocol: Document 04/08/21 12:50 LRN (Rec: 04/08/21 13:53 LRN [id number]) OP-PT Subjective Patient Comments Patient Comments Same PT-OP-H Neuro Start: 04/01/21 17:40 Freq: Status: Active Protocol: Document 04/05/21 10:43 LRN (Rec: 04/05/21 12:19 LRN [id number]) Sensation Evaluation Gross Sensation Gross Sensation WNL PT-OP-J Posture/Palpation/Skin Start: 04/01/21 17:40 Freq: Status: Active Protocol: Document 04/05/21 10:43 LRN (Rec: 04/05/21 12:19 LRN [id number]) Palpation Assessment Location Forearm Palpation Location upper 1/3 of forearm Palpation Findings Edema Palpation Details Girth measurement: 30cm right , 29 cm left. R wrist Palpation Location R wrist Palpation Details No pain R elbow Palpation Location R Lateral epicondyle Palpation Findings Tenderness Palpation Details Mild increase temperature Girth measurement: 18.8 cm right, 18 cm left PT-OP-K Range of Motion Start: 04/01/21 17:40 Freq: Status: Active Protocol: Document 04/08/21 12:50 LRN (Rec: 04/08/21 13:53 LRN [id number]) Elbow/Forearm Range of Motion Elbow/Forearm Right Active Elbow/Forearm ROM WFL No ROM Testing Position Sitting Comments (Extension lacks 20 deg's to neutral before onset of pain). Wrist Goniometric Range of Motion Wrist Right Wrist ROM WFL No Flexion Active (degrees) 67 Extension Active (degrees) 38 Ulnar Deviation Active (degrees) 35 Radial Deviation Active (degrees) 12 Left Wrist ROM WFL Yes Flexion Active (degrees) 60 Extension Active (degrees) 48 Ulnar Deviation Active (degrees) 44 Radial Deviation Active (degrees) 24 ROM Limitations Comments No pain in R elbow flex/ext PT-OP-M Strength Start: 04/01/21 17:40 Freq: Status: Active Protocol: Document 04/08/21 12:50 LRN (Rec: 04/08/21 13:53 LRN [id number]) Elbow/Forearm Strength Elbow and Forearm Manual Muscle Testing Right Flexion (C6) 5 Normal Extension (C7) 5 Normal Pronation 5 Normal Supination 5 Normal Comments Pain with MMT of elbow ext and supination. Left Comments Generally 5/5 Hand Linux Systems Administrator/Pinch Strength Hand Dominance Hand Dominance Right Hand Strength Left Comments Linux Systems Administrator strength with 3 trials given: k, 48, 47 (avg is 48) lbs: 105, 105, 103 (avg is 104) Norm for 40-44 year olds is 51 kg Right Comments Linux Systems Administrator strength with 3 trials given: k, 46, 44 (avg is 46) lbs: 95, 100, 105 (avg is 100) Norm for 40-44 year olds is 53 kg PT-OP-Q Treatments Start: 04/01/21 17:40 Freq: Status: Active Protocol: Document 04/08/21 12:50 LRN (Rec: 04/08/21 13:53 LRN [id number]) Therapeutic Exercises Sitting Exercises R wrist RD Sitting Exercise Name Wrist RD Side right Reps/Minutes 3' Comments AROM taken R wrist UD Sitting Exercise Name wrist UD Side right Reps/Minutes 3' Comments AROM taken R elbow ext stretch Sitting Exercise Name Active elbow ext stretch Side right Reps/Minutes 6' Comments Plus ext time for ROM taken before & after stretch R wrist sup stretch Sitting Exercise Name PROM Wrist supination stretch Side right Reps/Minutes 6' Comments Plus ext time for ROM taken before & after stretch R wrist ext stretch Sitting Exercise Name PROM Wrist ext stretch Side right Reps/Minutes 6' Comments Plus ext time for ROM taken before & after stretch R wrist flex stretch Sitting Exercise Name PROM Wrist flex stretch Side right Reps/Minutes 6' Comments Plus ext time for ROM taken before & after stretch Manual Therapy Treatment Soft Tissue Mobilization R wrist extensors Body Location Attachment at R lateral elbow Mobilization Type Cross-Friction Intensity/Depth Moderate Body Position Sitting Manual Techniques MWM elbow for wrist circles Type R arm: Lateral glide of radius /ulna with medial glide of humerus Body Location R forearm Body Position Sitting Reps/Duration 3' PT-OP-R Modalities Start: 04/01/21 17:40 Freq: Status: Active Protocol: Document 04/08/21 12:50 LRN (Rec: 04/08/21 13:53 LRN [id number]) Ultrasound Therapy Treatment R lateral elbow Treatment Duration (minutes) 8 Patient Position Sitting Coupling Medium Ultrasound Gel Applicator Size (cm2) 2 Frequency Setting (mHz) 3 Mode Setting Pulsed Duty Cycle 50% Intensity Setting (w/cm2) 1.0 Comments Wrist extensor tendons at elbow PT-OP-T Assessment and Plan Start: 04/01/21 17:40 Freq: Status: Active Protocol: Document 04/08/21 12:50 LRN (Rec: 04/08/21 13:53 LRN [id number]) Physical Therapy Assessment Rehab Potential Rehabilitation Potential Good Evaluation Complexity Number of Personal Factors/Comorbidities 1-2 Number of Body Systems Impaired 4 or More Clinical Presentation at Evaluation Evolving Impairments Impairments Activity Tolerance,Functional Mobility,Pain,ROM Goals Three Impairment Decreased R UE function due to R elbow pain (rated 5/10). Impairment UE QuickDASH Score - 54.54 (40 -59% impaired 40-59) Short Term Goal (STG) Improve R elbow AROM with pt able to reach forward to pickers material handlers cell phone with minimal to no pain. STG Duration 05/19/21 Weigh Machine Operator Goal (LTG) Improve R UE function per UE QuickDASH score of 19 or less (1-19% impaired, score 1-19), with pt able to dress, and brush his teeth with minimal to no pain. LTG Duration 07/04/21 Two Impairment Decreased painfree R elbow AROM Impairment R elbow painfree AROM: 43-130 deg's L elbow AROM: 0-137 deg's. Short Term Goal (STG) Decrease R elbow pain at rest to 0/10 with elbow in mild flexion of 43 deg's or less, and be able to move the arm after sitting idle with minimal to no pain. STG Duration 05/19/21 Fpc Goal (LTG) Decrease R elbow pain to 0/10 with elbow in full extension to be able to don/doff jacket without pain. LTG Duration 07/04/21 One Impairment Pt lacks appropriate self care HEP. Short Term Goal (STG) Pt will be educate in proper posturing for sitting and working at computer. STG Duration 05/19/21 Weigh Machine Operator Goal (LTG) Pt will be independent in a self care HEP. LTG Duration 07/04/21 Assessment Summary Assessment Elbow strength is normal with discomfort testing extension and supination. R painfree wrist mobility has improved, probably pt use of cryotherapy at home. R lateral Epicondylitis with possible small cervical involvement. Manual cervical traction in supine decreased pain complaint from 5/10 to 4/10. Pt has improved R elbow painfree ext after treatment and mildly with manual cervical traction. Iontophoresis would be beneficial if approved. Physical Therapy Plan Frequency and Duration Frequency of Treatment 2x/Week Plan of Care Start Date 04/05/21 Plan of Care End Date 05/19/21 Therapeutic Interventions Therapeutic Interventions Aquatic Therapy,Home Exercise Program,Joint Mobilizations, Manual Therapy,Neuromuscular Re-education,Patient/Caregiver Education,Self-Care/Home Management,Soft Tissue Mobilization,Taping, Therapeutic Exercises Modalities Cold Pack/Ice Massage,Electric Stimulation,Hot Packs, Iontophoresis,Traction- Mechanical,Ultrasound Other Therapeutic Interventions Iontophoresis with 4mg/mL Dexamethasone wtih Sodium Phosphate. Next Visit Focus/Plan Next Note Type Treatment Note Next Visit Plan Iontophoresis if referring physician is agreeable. Next treatment: educate in proper posturing for sitting and working at computer. HEP handouts for ROM stretches of R elbow ext and supination. Copntinue Ultrasound, STM of wrist extensors and ROM stretch to R wrist and elbow. Linux Systems Administrator strengthening if painfree with gripping.
--- NOTE | 2021-04-08 13:59 | PT.OPPOC ---
Physical, Occupational & Speech Therapy At [facility] Current Diagnoses Pain in right elbow (04/08/21) Visit Care Team Role Provider Type Aravind Mederos MD Attending Provider Physician Family Provider Primary Care Provider Referring Provider Specialty: Family Practice Address: [address] [place] [address], [id number] Email: [email or web address] Plan Of Care PT-OP-T Assessment and Plan Start: 04/01/21 17:40 Freq: Status: Active Protocol: Document 04/08/21 12:50 LRN (Rec: 04/08/21 13:53 LRN [id number]) Physical Therapy Assessment Rehab Potential Rehabilitation Potential Good Evaluation Complexity Number of Personal Factors/Comorbidities 1-2 Number of Body Systems Impaired 4 or More Clinical Presentation at Evaluation Evolving Impairments Impairments Activity Tolerance,Functional Mobility,Pain,ROM Goals Three Impairment Decreased R UE function due to R elbow pain (rated 5/10). Impairment UE QuickDASH Score - 54.54 (40 -59% impaired 40-59) Short Term Goal (STG) Improve R elbow AROM with pt able to reach forward to steel pickler cell phone with minimal to no pain. STG Duration 05/19/21 Fdc Goal (LTG) Improve R UE function per UE QuickDASH score of 19 or less (1-19% impaired, score 1-19), with pt able to dress, and brush his teeth with minimal to no pain. LTG Duration 07/04/21 Two Impairment Decreased painfree R elbow AROM Impairment R elbow painfree AROM: 43-130 deg's L elbow AROM: 0-137 deg's. Short Term Goal (STG) Decrease R elbow pain at rest to 0/10 with elbow in mild flexion of 43 deg's or less, and be able to move the arm after sitting idle with minimal to no pain. STG Duration 05/19/21 Fdc Goal (LTG) Decrease R elbow pain to 0/10 with elbow in full extension to be able to don/doff jacket without pain. LTG Duration 07/04/21 One Impairment Pt lacks appropriate self care HEP. Short Term Goal (STG) Pt will be educate in proper posturing for sitting and working at computer. STG Duration 05/19/21 Floral Specialist Goal (LTG) Pt will be independent in a self care HEP. LTG Duration 07/04/21 Assessment Summary Assessment Elbow strength is normal with discomfort testing extension and supination. R painfree wrist mobility has improved, probably pt use of cryotherapy at home. R lateral Epicondylitis with possible small cervical involvement. Manual cervical traction in supine decreased pain complaint from 5/10 to 4/10. Pt has improved R elbow painfree ext after treatment and mildly with manual cervical traction. Iontophoresis would be beneficial if approved. Physical Therapy Plan Frequency and Duration Frequency of Treatment 2x/Week Plan of Care Start Date 04/05/21 Plan of Care End Date 05/19/21 Therapeutic Interventions Therapeutic Interventions Aquatic Therapy,Home Exercise Program,Joint Mobilizations, Manual Therapy,Neuromuscular Re-education,Patient/Caregiver Education,Self-Care/Home Management,Soft Tissue Mobilization,Taping, Therapeutic Exercises Modalities Cold Pack/Ice Massage,Electric Stimulation,Hot Packs, Iontophoresis,Traction- Mechanical,Ultrasound Other Therapeutic Interventions Iontophoresis with 4mg/mL Dexamethasone wtih Sodium Phosphate. Next Visit Focus/Plan Next Note Type Treatment Note Next Visit Plan Iontophoresis if referring physician is agreeable. Next treatment: educate in proper posturing for sitting and working at computer. HEP handouts for ROM stretches of R elbow ext and supination. Copntinue Ultrasound, STM of wrist extensors and ROM stretch to R wrist and elbow. Supervisor Mirror Fabrication strengthening if painfree with gripping. Plan of Care Dates Plan of Care Start Date 04/05/21 Plan of Care End Date 05/19/21 Electronically Signed by: Vivi Lora, PT 04/08/21 [id number] Please Sign and Return: I have reviewed this Plan of Care and certify that the skilled therapy services above are required to meet the patient?s needs. Physician Signature Date Printed Name and Credentials Clinical Instructor Signature Printed Name and Credentials
--- NOTE | 2021-04-12 11:20 | PT.OTN ---
Current Diagnoses Pain in right elbow (04/12/21) Physical Therapy Treatment Note PT-OP-A Visit Information Start: 04/01/21 17:40 Freq: Status: Active Protocol: Document 04/12/21 10:35 SP (Rec: 04/12/21 11:34 SP [id number]) Out-Patient Physical Therapy Visit Information Visit Information Visit Type Treatment Note Visit Start Time 10:35 Visit Stop Time 11:20 Total Visit Minutes 45 Visit Number 3 Number of SKATE MAKER Visits 1 Evaluation Information Evaluation Date 04/05/21 Precautions Precautions Vertigo with history of falls, depression & anxiety controlled by medications. PT-OP-B Current Condition Start: 04/01/21 17:40 Freq: Status: Active Protocol: Document 04/05/21 10:43 LRN (Rec: 04/05/21 12:19 LRN [id number]) Current Condition History of Current Condition Onset Date 5-6 months ago Current Complaints R elbow pain History of Current Condition R elbow pain of insidious onset. Waking with trigger finger of R hand 4th and 3rd finger, a few days after started having R elbow pain. No tape allergies. Prior Treatments and Tests X-ray R elbow: No acute osseous abnormality. Future Testing and Treatments Planned none Developmental History Developmental History 1 yr ago similar onset, and lasted a few weeks. Pain lasted for 30-40' and then would go away. 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 Pt has history of constant back problems that he gets nerve ablation (L5 and below). Treatment Goals Patient/Caregiver Goals Pt goal is to reduce or eliminate the pain with activities (anytime arm is used). Prior Functional Status Baseline Function- ADL's Independent Baseline Function- Mobility Independent Baseline Function- Work/School Retired from [employer]. 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 Current Functional Impairments (Reported) Functional Limitations- ADL's Interfers with ability to loading machine operator cell phone, (able if arm is close to body) but if arm is reaching out the pain is worse . If sits idle and move the elbow pops at lateral side of olecranon process. Pain removing jacket, dressing , brushing teeth, anything requiring grasping with arm extended. Not as bad if arm not extended. Grasping is when it is panful, or if extending arm without grasping it hurts. Functional Limitations- Work/School Same as above: Retired from [employer]. 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 Personal Factors Other Personal Factors That May Effect Lives [place]. 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 Vertigo with falls (not in recent 3-4 months), falls forward on stairs. Takes Prosaic for depression & anxiety. PT-OP-C Subjective Start: 04/01/21 17:40 Freq: Status: Active Protocol: Document 04/12/21 10:35 SP (Rec: 04/12/21 11:34 SP [id number]) OP-PT Subjective Patient Comments Patient Comments Pt reports significant changes in ability of activities with R elbow since started PT but feeling better. PT-OP-H Neuro Start: 04/01/21 17:40 Freq: Status: Active Protocol: Document 04/05/21 10:43 LRN (Rec: 04/05/21 12:19 LRN [id number]) Sensation Evaluation Gross Sensation Gross Sensation WNL PT-OP-J Posture/Palpation/Skin Start: 04/01/21 17:40 Freq: Status: Active Protocol: Document 04/05/21 10:43 LRN (Rec: 04/05/21 12:19 LRN [id number]) Palpation Assessment Location Forearm Palpation Location upper 1/3 of forearm Palpation Findings Edema Palpation Details Girth measurement: 30cm right , 29 cm left. R wrist Palpation Location R wrist Palpation Details No pain R elbow Palpation Location R Lateral epicondyle Palpation Findings Tenderness Palpation Details Mild increase temperature Girth measurement: 18.8 cm right, 18 cm left PT-OP-K Range of Motion Start: 04/01/21 17:40 Freq: Status: Active Protocol: Document 04/08/21 12:50 LRN (Rec: 04/08/21 13:53 LRN [id number]) Elbow/Forearm Range of Motion Elbow/Forearm Right Active Elbow/Forearm ROM WFL No ROM Testing Position Sitting Comments (Extension lacks 20 deg's to neutral before onset of pain). Wrist Goniometric Range of Motion Wrist Right Wrist ROM WFL No Flexion Active (degrees) 67 Extension Active (degrees) 38 Ulnar Deviation Active (degrees) 35 Radial Deviation Active (degrees) 12 Left Wrist ROM WFL Yes Flexion Active (degrees) 60 Extension Active (degrees) 48 Ulnar Deviation Active (degrees) 44 Radial Deviation Active (degrees) 24 ROM Limitations Comments No pain in R elbow flex/ext PT-OP-M Strength Start: 04/01/21 17:40 Freq: Status: Active Protocol: Document 04/08/21 12:50 LRN (Rec: 04/08/21 13:53 LRN [id number]) Elbow/Forearm Strength Elbow and Forearm Manual Muscle Testing Right Flexion (C6) 5 Normal Extension (C7) 5 Normal Pronation 5 Normal Supination 5 Normal Comments Pain with MMT of elbow ext and supination. Left Comments Generally 5/5 Hand Billboard Erector Helper/Pinch Strength Hand Dominance Hand Dominance Right Hand Strength Left Comments Billboard Erector Helper strength with 3 trials given: k, 48, 47 (avg is 48) lbs: 105, 105, 103 (avg is 104) Norm for 40-44 year olds is 51 kg Right Comments Billboard Erector Helper strength with 3 trials given: k, 46, 44 (avg is 46) lbs: 95, 100, 105 (avg is 100) Norm for 40-44 year olds is 53 kg PT-OP-Q Treatments Start: 04/01/21 17:40 Freq: Status: Active Protocol: Document 04/12/21 10:35 SP (Rec: 04/12/21 11:34 SP [id number]) Therapeutic Exercises Sitting Exercises R wrist flex/ ext/ pronation/ supination Sitting Exercise Name initiated to HEP Side right Resistance AROM> #1 TB Reps/Minutes x10 each Comments good feedback response tiring, no p ain R wrist RD Sitting Exercise Name Wrist RD Side right Resistance AROM> #1 TB Reps/Minutes x10 Comments good feedback response tiring, no p ain R wrist UD Sitting Exercise Name wrist UD Side right Resistance AROM> #1 TB Reps/Minutes x10 Comments good feedback response tiring, no p ain R elbow ext stretch Sitting Exercise Name Active elbow ext stretch vs standing elbow ext stretch Side right Reps/Minutes 30 x2 Comments good feedback response R wrist ext stretch Sitting Exercise Name PROM Wrist ext stretch Side right Reps/Minutes 30 x2 Comments good feedback response R wrist flex stretch Sitting Exercise Name PROM Wrist flex stretch Side right Reps/Minutes 30 x2 Comments good feedback response- little time spent finding position for effective Manual Therapy Treatment Soft Tissue Mobilization R wrist extensors Body Location Attachment at R lateral ulna and distal humerus Mobilization Type Cross-Friction Intensity/Depth Moderate Body Position Sitting Comments manual and MWM wrist flex/ ext on how do self at home to decrease tension on elbow when extends. Joint Mobilizations ulnar lateral glide Joint ulnar-humeral mobe: w/ strap Direction lateral Grade II Body Position Supine Reps/Duration 3 min Comments 2 positions- good feedback small inter jt stretch Manual Techniques MWM elbow for wrist circles Type R arm: Lateral glide of rulna with lateral glide of ulna on humerus Body Location R forearm Body Position Supine Comments w/ MWM wrist flex/ ext Self-Care/Home Management Treatment Education Patient Education Home Exercise Program,Joint Protection,Pain Management Other Education Initiated self care sustained pressure over CET w/ wrist flex/ ext/ pron/ supination and added TB #[address].- painfree range- good response. PT-OP-R Modalities Start: 04/01/21 17:40 Freq: Status: Active Protocol: Document 04/12/21 10:35 SP (Rec: 04/12/21 11:34 SP [id number]) Ultrasound Therapy Treatment R lateral elbow Treatment Duration (minutes) 8 Patient Position Sitting Coupling Medium Ultrasound Gel Applicator Size (cm2) 2 Frequency Setting (mHz) 3 Mode Setting Pulsed Duty Cycle 50% Intensity Setting (w/cm2) 1.0 Comments Wrist extensor tendons at elbow PT-OP-T Assessment and Plan Start: 04/01/21 17:40 Freq: Status: Active Protocol: Document 04/12/21 10:35 SP (Rec: 04/12/21 11:34 SP [id number]) Physical Therapy Assessment Goals Three Impairment Decreased R UE function due to R elbow pain (rated 5/10). Impairment UE QuickDASH Score - 54.54 (40 -59% impaired 40-59) Short Term Goal (STG) Improve R elbow AROM with pt able to reach forward to orange picking supervisor cell phone with minimal to no pain. STG Duration 05/19/21 Shelter Goal (LTG) Improve R UE function per UE QuickDASH score of 19 or less (1-19% impaired, score 1-19), with pt able to dress, and brush his teeth with minimal to no pain. LTG Duration 07/04/21 Two Impairment Decreased painfree R elbow AROM Impairment R elbow painfree AROM: 43-130 deg's L elbow AROM: 0-137 deg's. Short Term Goal (STG) Decrease R elbow pain at rest to 0/10 with elbow in mild flexion of 43 deg's or less, and be able to move the arm after sitting idle with minimal to no pain. STG Duration 05/19/21 Shelter Goal (LTG) Decrease R elbow pain to 0/10 with elbow in full extension to be able to don/doff jacket without pain. LTG Duration 07/04/21 One Impairment Pt lacks appropriate self care HEP. Short Term Goal (STG) Pt will be educate in proper posturing for sitting and working at computer. STG Duration 05/19/21 Shelter Goal (LTG) Pt will be independent in a self care HEP. LTG Duration 07/04/21 Assessment Summary Assessment Tx focused on manual mobes/ STMs of CET and lateral proximal ulnar glide good feedback. Reviewed AROM wrist HEP and able to progress w/ TB no adverse affects. Good feedback response to US end tx for decrease tension in CET of R UE. Pt good understanding new HEp with TB and HOs provided. Physical Therapy Plan Frequency and Duration Frequency of Treatment 2x/Week Plan of Care Start Date 04/05/21 Plan of Care End Date 05/19/21 Therapeutic Interventions Therapeutic Interventions Aquatic Therapy,Home Exercise Program,Joint Mobilizations, Manual Therapy,Neuromuscular Re-education,Patient/Caregiver Education,Self-Care/Home Management,Soft Tissue Mobilization,Taping, Therapeutic Exercises Modalities Cold Pack/Ice Massage,Electric Stimulation,Hot Packs, Iontophoresis,Traction- Mechanical,Ultrasound Other Therapeutic Interventions Iontophoresis with 4mg/mL Dexamethasone wtih Sodium Phosphate. Next Visit Focus/Plan Next Note Type Treatment Note Next Visit Plan Assess reponse to HEP: recheck TB use, stretching, next tx add loading machine operator putty. POC: Iontophoresis if referring physician is agreeable. Next treatment: educate in proper posturing for sitting and working at computer. Continue Ultrasound , STM of wrist extensors and ROM stretch to R wrist and elbow. Billboard Erector Helper strengthening if painfree with gripping.
--- NOTE | 2021-04-15 13:45 | PT.OTN ---
Current Diagnoses Pain in right elbow (04/15/21) Physical Therapy Treatment Note PT-OP-A Visit Information Start: 04/01/21 17:40 Freq: Status: Active Protocol: Document 04/15/21 13:00 SP (Rec: 04/15/21 14:29 SP [id number]) Out-Patient Physical Therapy Visit Information Visit Information Visit Type Treatment Note Visit Start Time 13:00 Visit Stop Time 13:45 Total Visit Minutes 45 Visit Number 4 Number of STAFF NURSE MIDWIFE Visits 2 Evaluation Information Evaluation Date 04/05/21 Precautions Precautions Vertigo with history of falls, depression & anxiety controlled by medications. PT-OP-B Current Condition Start: 04/01/21 17:40 Freq: Status: Active Protocol: Document 04/05/21 10:43 LRN (Rec: 04/05/21 12:19 LRN [id number]) Current Condition History of Current Condition Onset Date 5-6 months ago Current Complaints R elbow pain History of Current Condition R elbow pain of insidious onset. Waking with trigger finger of R hand 4th and 3rd finger, a few days after started having R elbow pain. No tape allergies. Prior Treatments and Tests X-ray R elbow: No acute osseous abnormality. Future Testing and Treatments Planned none Developmental History Developmental History 1 yr ago similar onset, and lasted a few weeks. Pain lasted for 30-40' and then would go away. 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 Pt has history of constant back problems that he gets nerve ablation (L5 and below). Treatment Goals Patient/Caregiver Goals Pt goal is to reduce or eliminate the pain with activities (anytime arm is used). Prior Functional Status Baseline Function- ADL's Independent Baseline Function- Mobility Independent Baseline Function- Work/School Retired from [employer]. 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 Current Functional Impairments (Reported) Functional Limitations- ADL's Interfers with ability to recording studio intern cell phone, (able if arm is close to body) but if arm is reaching out the pain is worse . If sits idle and move the elbow pops at lateral side of olecranon process. Pain removing jacket, dressing , brushing teeth, anything requiring grasping with arm extended. Not as bad if arm not extended. Grasping is when it is panful, or if extending arm without grasping it hurts. Functional Limitations- Work/School Same as above: Retired from [employer]. 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 Personal Factors Other Personal Factors That May Effect Lives [place]. 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 Vertigo with falls (not in recent 3-4 months), falls forward on stairs. Takes Prosaic for depression & anxiety. PT-OP-C Subjective Start: 04/01/21 17:40 Freq: Status: Active Protocol: Document 04/15/21 13:00 SP (Rec: 04/15/21 14:29 SP [id number]) OP-PT Subjective Patient Comments Patient Comments Pt stated felt better with flexion R elbow into next day and only discomfort at end range extension, the follow day had pain with elbow flexion, extension and rotation movements. Pt stated is had to cancel next appt early next week due to having a nerve ablation in lumbar spine to decreased radiating pain into legs and feels should be ok to keep 04/21 appt, aware to call and cancel if 24 hrs advance if changes needed. PT-OP-H Neuro Start: 04/01/21 17:40 Freq: Status: Active Protocol: Document 04/05/21 10:43 LRN (Rec: 04/05/21 12:19 LRN [id number]) Sensation Evaluation Gross Sensation Gross Sensation WNL PT-OP-J Posture/Palpation/Skin Start: 04/01/21 17:40 Freq: Status: Active Protocol: Document 04/05/21 10:43 LRN (Rec: 04/05/21 12:19 LRN [id number]) Palpation Assessment Location Forearm Palpation Location upper 1/3 of forearm Palpation Findings Edema Palpation Details Girth measurement: 30cm right , 29 cm left. R wrist Palpation Location R wrist Palpation Details No pain R elbow Palpation Location R Lateral epicondyle Palpation Findings Tenderness Palpation Details Mild increase temperature Girth measurement: 18.8 cm right, 18 cm left PT-OP-K Range of Motion Start: 04/01/21 17:40 Freq: Status: Active Protocol: Document 04/08/21 12:50 LRN (Rec: 04/08/21 13:53 LRN [id number]) Elbow/Forearm Range of Motion Elbow/Forearm Right Active Elbow/Forearm ROM WFL No ROM Testing Position Sitting Comments (Extension lacks 20 deg's to neutral before onset of pain). Wrist Goniometric Range of Motion Wrist Right Wrist ROM WFL No Flexion Active (degrees) 67 Extension Active (degrees) 38 Ulnar Deviation Active (degrees) 35 Radial Deviation Active (degrees) 12 Left Wrist ROM WFL Yes Flexion Active (degrees) 60 Extension Active (degrees) 48 Ulnar Deviation Active (degrees) 44 Radial Deviation Active (degrees) 24 ROM Limitations Comments No pain in R elbow flex/ext PT-OP-M Strength Start: 04/01/21 17:40 Freq: Status: Active Protocol: Document 04/08/21 12:50 LRN (Rec: 04/08/21 13:53 LRN [id number]) Elbow/Forearm Strength Elbow and Forearm Manual Muscle Testing Right Flexion (C6) 5 Normal Extension (C7) 5 Normal Pronation 5 Normal Supination 5 Normal Comments Pain with MMT of elbow ext and supination. Left Comments Generally 5/5 Hand Core Cutter/Pinch Strength Hand Dominance Hand Dominance Right Hand Strength Left Comments Core Cutter strength with 3 trials given: k, 48, 47 (avg is 48) lbs: 105, 105, 103 (avg is 104) Norm for 40-44 year olds is 51 kg Right Comments Core Cutter strength with 3 trials given: k, 46, 44 (avg is 46) lbs: 95, 100, 105 (avg is 100) Norm for 40-44 year olds is 53 kg PT-OP-Q Treatments Start: 04/01/21 17:40 Freq: Status: Active Protocol: Document 04/15/21 13:00 SP (Rec: 04/15/21 14:29 SP [id number]) Therapeutic Exercises Sitting Exercises theraputty Sitting Exercise Name recording studio intern squeeze, individual finger flexion, thumb print, lumbrical MTP flexion Side right Resistance yellow putty (gave red for progression when ready, not able today) Equipment Used added to HEP Reps/Minutes x10 each Comments able perform painfree when limited to 10 reps, elbow supported flexed 90* R wrist flex/ ext/ pronation/ supination Sitting Exercise Name reviewed HEP Side right Resistance AROM> #1 TB Reps/Minutes x10 each Comments good feedback response tiring, no p ain R wrist RD Sitting Exercise Name Wrist RD HEP reviewed Side right Resistance AROM> #1 TB Reps/Minutes x10 Comments good feedback response tiring, no p ain R wrist UD Sitting Exercise Name wrist UD HEP reviewed Side right Resistance AROM> #1 TB Reps/Minutes x10 Comments good feedback response tiring, no p ain R elbow ext stretch Sitting Exercise Name Active elbow ext stretch vs standing elbow ext stretch Side right Reps/Minutes 30 x2 Comments good feedback response R wrist ext stretch Sitting Exercise Name PROM Wrist ext stretch Side right Resistance HEP review Reps/Minutes 30 x2 Comments good feedback response R wrist flex stretch Sitting Exercise Name PROM Wrist flex stretch Side right Resistance HEP review Reps/Minutes 30 x2 Comments good feedback response- little time spent finding position for effective Manual Therapy Treatment Soft Tissue Mobilization R wrist extensors Body Location Attachment at R lateral ulna and distal humerus Mobilization Type Cross-Friction Intensity/Depth Moderate Body Position Sitting Comments manual and MWM wrist flex/ ext ed self performance does at home to decrease tension on elbow when extends end feel. Joint Mobilizations ulnar lateral glide Joint ulnar-humeral mobe: w/ strap Direction lateral, inferior Grade II Body Position Supine Reps/Duration 5 Comments Manual 3 positions- good feedback small inter jt stretch, then incorporated small range MWM wrist flex/ ext/ pron/ sup with no adverse affects. Self-Care/Home Management Treatment Education Patient Education Home Exercise Program,Pain Management Other Education Initiated yellow theraputty for R UE recording studio intern strength with no adverse affects, increase irritation Red, recommended use of yellow for now. PT-OP-R Modalities Start: 04/01/21 17:40 Freq: Status: Active Protocol: Document 04/15/21 13:00 SP (Rec: 04/15/21 14:29 SP [id number]) Iontophoresis Treatment R CET elbow Treatment Medication Dexamethasone (-) Medication Amount (mL) (ml) 1 Medication Dosage 4 mcg Treatment Polarity neg to positive Active Electrode Placement CET Treatment Duration (minutes) 4 Patient Tolerance Good Ultrasound Therapy Treatment R lateral elbow Treatment Duration (minutes) 8 Patient Position Sitting Coupling Medium Ultrasound Gel Applicator Size (cm2) 2 Frequency Setting (mHz) 3 Mode Setting Pulsed Duty Cycle 50% Intensity Setting (w/cm2) 1.0 Comments Wrist common extensor tendons at elbow PT-OP-T Assessment and Plan Start: 04/01/21 17:40 Freq: Status: Active Protocol: Document 04/15/21 13:00 SP (Rec: 04/15/21 14:29 SP [id number]) Physical Therapy Assessment Goals Three Impairment Decreased R UE function due to R elbow pain (rated 5/10). Impairment UE QuickDASH Score - 54.54 (40 -59% impaired 40-59) Short Term Goal (STG) Improve R elbow AROM with pt able to reach forward to bulk picker cell phone with minimal to no pain. STG Duration 05/19/21 Longterm Goal (LTG) Improve R UE function per UE QuickDASH score of 19 or less (1-19% impaired, score 1-19), with pt able to dress, and brush his teeth with minimal to no pain. LTG Duration 07/04/21 Two Impairment Decreased painfree R elbow AROM Impairment R elbow painfree AROM: 43-130 deg's L elbow AROM: 0-137 deg's. Short Term Goal (STG) Decrease R elbow pain at rest to 0/10 with elbow in mild flexion of 43 deg's or less, and be able to move the arm after sitting idle with minimal to no pain. STG Duration 05/19/21 Evaluation Engineer Goal (LTG) Decrease R elbow pain to 0/10 with elbow in full extension to be able to don/doff jacket without pain. LTG Duration 07/04/21 One Impairment Pt lacks appropriate self care HEP. Short Term Goal (STG) Pt will be educate in proper posturing for sitting and working at computer. STG Duration 05/19/21 Longterm Goal (LTG) Pt will be independent in a self care HEP. LTG Duration 07/04/21 Assessment Summary Assessment Pt good understanding and performance HEP, cued x10 reps and elbow bent for now decrease CEt recruitment as still feels discomfort irriation when elbow fully extended end feel, good feedback response. Discussed use of tennis elbow strap for decrease proximal attachment irritation and mentioned thought about getting for the meantime. Pt responded well to manual, HEP review. Added theraputty and painfree with elbow bent 90 deg supported on table to HEP. Pt responds well to US and initiated iontophoresis this tx for assist pain control over CET RUE. Pt understanding adverse affects and remove if experiences: redness, itching, tingling, increased pain remove and wash area then report response to PT/ STAFF NURSE MIDWIFE. Otherwise wear for 4 hrs and remove note response and report at next tx for effectiveness. Pt no pain post application pre/ post ionto placement. Physical Therapy Plan Frequency and Duration Frequency of Treatment 2x/Week Plan of Care Start Date 04/05/21 Plan of Care End Date 05/19/21 Therapeutic Interventions Therapeutic Interventions Aquatic Therapy,Home Exercise Program,Joint Mobilizations, Manual Therapy,Neuromuscular Re-education,Patient/Caregiver Education,Self-Care/Home Management,Soft Tissue Mobilization,Taping, Therapeutic Exercises Modalities Cold Pack/Ice Massage,Electric Stimulation,Hot Packs, Iontophoresis,Traction- Mechanical,Ultrasound Other Therapeutic Interventions Iontophoresis with 4mg/mL Dexamethasone wtih Sodium Phosphate. Next Visit Focus/Plan Next Note Type Treatment Note Next Visit Plan Assess reponse to HEP: recheck iontophoresis, added home response to added theraputty, reviewed stretching. POC: Next treatment: educate in proper posturing for sitting and working at computer. Continue Ultrasound and or iontophoresis, STM of wrist extensors and ROM stretch to R wrist and elbow. Core Cutter strengthening if painfree with gripping.
--- NOTE | 2021-04-21 13:04 | PT.OTN ---
Current Diagnoses Pain in right elbow (04/21/21) Physical Therapy Treatment Note PT-OP-A Visit Information Start: 04/01/21 17:40 Freq: Status: Active Protocol: Document 04/21/21 12:17 SP (Rec: 04/21/21 14:28 SP [id number]) Out-Patient Physical Therapy Visit Information Visit Information Visit Type Treatment Note Visit Start Time 12:17 Visit Stop Time 13:04 Total Visit Minutes 47 Visit Number 5 Number of AVIATION MAINTENANCE INSTRUCTOR Visits 3 Evaluation Information Evaluation Date 04/05/21 Precautions Precautions Vertigo with history of falls, depression & anxiety controlled by medications. PT-OP-B Current Condition Start: 04/01/21 17:40 Freq: Status: Active Protocol: Document 04/05/21 10:43 LRN (Rec: 04/05/21 12:19 LRN [id number]) Current Condition History of Current Condition Onset Date 5-6 months ago Current Complaints R elbow pain History of Current Condition R elbow pain of insidious onset. Waking with trigger finger of R hand 4th and 3rd finger, a few days after started having R elbow pain. No tape allergies. Prior Treatments and Tests X-ray R elbow: No acute osseous abnormality. Future Testing and Treatments Planned none Developmental History Developmental History 1 yr ago similar onset, and lasted a few weeks. Pain lasted for 30-40' and then would go away. 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 Pt has history of constant back problems that he gets nerve ablation (L5 and below). Treatment Goals Patient/Caregiver Goals Pt goal is to reduce or eliminate the pain with activities (anytime arm is used). Prior Functional Status Baseline Function- ADL's Independent Baseline Function- Mobility Independent Baseline Function- Work/School Retired from [employer]. 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 Current Functional Impairments (Reported) Functional Limitations- ADL's Interfers with ability to job interviewer cell phone, (able if arm is close to body) but if arm is reaching out the pain is worse . If sits idle and move the elbow pops at lateral side of olecranon process. Pain removing jacket, dressing , brushing teeth, anything requiring grasping with arm extended. Not as bad if arm not extended. Grasping is when it is panful, or if extending arm without grasping it hurts. Functional Limitations- Work/School Same as above: Retired from [employer]. 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 Personal Factors Other Personal Factors That May Effect Lives [place]. 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 Vertigo with falls (not in recent 3-4 months), falls forward on stairs. Takes Prosaic for depression & anxiety. PT-OP-C Subjective Start: 04/01/21 17:40 Freq: Status: Active Protocol: Document 04/21/21 12:17 SP (Rec: 04/21/21 14:28 SP [id number]) OP-PT Subjective Patient Comments Patient Comments Pt reports the iontophoresis 4 hr patch did help alot more after last tx lasting into portion of the next day with no pain and no adverse affects , removed at 4 hrs as instructed. Gripping with yellow putty arm supported bent elbow seemed to irritate elbow after last tx, attempted at home to see if was ok but still caused more irritation so stopped. States the band exercises are ok. Pt states still cant reach out front with tension, orginal pain came in with, although has more range that has less pain. PT-OP-H Neuro Start: 04/01/21 17:40 Freq: Status: Active Protocol: Document 04/05/21 10:43 LRN (Rec: 04/05/21 12:19 LRN [id number]) Sensation Evaluation Gross Sensation Gross Sensation WNL PT-OP-J Posture/Palpation/Skin Start: 04/01/21 17:40 Freq: Status: Active Protocol: Document 04/05/21 10:43 LRN (Rec: 04/05/21 12:19 LRN [id number]) Palpation Assessment Location Forearm Palpation Location upper 1/3 of forearm Palpation Findings Edema Palpation Details Girth measurement: 30cm right , 29 cm left. R wrist Palpation Location R wrist Palpation Details No pain R elbow Palpation Location R Lateral epicondyle Palpation Findings Tenderness Palpation Details Mild increase temperature Girth measurement: 18.8 cm right, 18 cm left PT-OP-K Range of Motion Start: 04/01/21 17:40 Freq: Status: Active Protocol: Document 04/08/21 12:50 LRN (Rec: 04/08/21 13:53 LRN [id number]) Elbow/Forearm Range of Motion Elbow/Forearm Right Active Elbow/Forearm ROM WFL No ROM Testing Position Sitting Comments (Extension lacks 20 deg's to neutral before onset of pain). Wrist Goniometric Range of Motion Wrist Right Wrist ROM WFL No Flexion Active (degrees) 67 Extension Active (degrees) 38 Ulnar Deviation Active (degrees) 35 Radial Deviation Active (degrees) 12 Left Wrist ROM WFL Yes Flexion Active (degrees) 60 Extension Active (degrees) 48 Ulnar Deviation Active (degrees) 44 Radial Deviation Active (degrees) 24 ROM Limitations Comments No pain in R elbow flex/ext PT-OP-M Strength Start: 04/01/21 17:40 Freq: Status: Active Protocol: Document 04/08/21 12:50 LRN (Rec: 04/08/21 13:53 LRN [id number]) Elbow/Forearm Strength Elbow and Forearm Manual Muscle Testing Right Flexion (C6) 5 Normal Extension (C7) 5 Normal Pronation 5 Normal Supination 5 Normal Comments Pain with MMT of elbow ext and supination. Left Comments Generally 5/5 Hand Freight Unloader/Pinch Strength Hand Dominance Hand Dominance Right Hand Strength Left Comments Freight Unloader strength with 3 trials given: k, 48, 47 (avg is 48) lbs: 105, 105, 103 (avg is 104) Norm for 40-44 year olds is 51 kg Right Comments Freight Unloader strength with 3 trials given: k, 46, 44 (avg is 46) lbs: 95, 100, 105 (avg is 100) Norm for 40-44 year olds is 53 kg PT-OP-Q Treatments Start: 04/01/21 17:40 Freq: Status: Active Protocol: Document 04/21/21 12:17 SP (Rec: 04/21/21 14:28 SP [id number]) Therapeutic Exercises Sitting Exercises theraputty Sitting Exercise Name discontinue- causes latent pain and when tried at home Standing Exercises forward punch Standing Exercise Name added to HEP Side right Resistance TB#1 Reps/Minutes x5 Comments slight discomfort but not pain I can do this tricep ext Side right Resistance Tb #1 Reps/Minutes x5 Comments caused irritation over CET so stopped Manual Therapy Treatment Soft Tissue Mobilization R wrist extensors Body Location Attachment at R lateral ulna and distal humerus Mobilization Type Cross-Friction Intensity/Depth Moderate Body Position Sitting Comments manual and MWM wrist flex/ ext ed self performance does at home to decrease tension on elbow when extends end feel. Joint Mobilizations ulnar lateral glide Joint ulnar-humeral mobe: w/ strap Direction lateral, inferior Grade II Body Position Supine Reps/Duration 5 Comments Manual 3 positions- good feedback small inter jt stretch, then incorporated small range MWM wrist flex/ ext/ pron/ sup with no adverse affects. Self-Care/Home Management Treatment Education Patient Education Home Exercise Program,Pain Management Other Education Initiated resistsed forward punch to HEP. Extra time spent on body mechanics of postural alignment seated at computer with good understanding and almost what has been doing, sugggested lower monitor little more and awareness of neutral CS w/ flexion nod. PT-OP-R Modalities Start: 04/01/21 17:40 Freq: Status: Active Protocol: Document 04/21/21 12:17 SP (Rec: 04/21/21 14:28 SP [id number]) Iontophoresis Treatment R CET elbow Treatment Medication Dexamethasone (-) Medication Amount (mL) (ml) 1 Medication Dosage 4 mcg Treatment Polarity neg to positive Active Electrode Placement CET Treatment Duration (minutes) 4 Patient Tolerance Good Ultrasound Therapy Treatment R lateral elbow Treatment Duration (minutes) 8 Patient Position Sitting Coupling Medium Ultrasound Gel Applicator Size (cm2) 2 Frequency Setting (mHz) 3 Mode Setting Pulsed Duty Cycle 50% Intensity Setting (w/cm2) 1.0 Comments Wrist common extensor tendons at elbow PT-OP-T Assessment and Plan Start: 04/01/21 17:40 Freq: Status: Active Protocol: Document 04/21/21 12:17 SP (Rec: 04/21/21 14:28 SP [id number]) Physical Therapy Assessment Goals Three Impairment Decreased R UE function due to R elbow pain (rated 5/10). Impairment UE QuickDASH Score - 54.54 (40 -59% impaired 40-59) Short Term Goal (STG) Improve R elbow AROM with pt able to reach forward to slat pickler cell phone with minimal to no pain. STG Duration 05/19/21 Applications Processor Goal (LTG) Improve R UE function per UE QuickDASH score of 19 or less (1-19% impaired, score 1-19), with pt able to dress, and brush his teeth with minimal to no pain. LTG Duration 07/04/21 Two Impairment Decreased painfree R elbow AROM Impairment R elbow painfree AROM: 43-130 deg's L elbow AROM: 0-137 deg's. 04/21/21: progressing: AROM 0-137 deg tissue restriction, painfree range 22 -137 deg (supine) Short Term Goal (STG) Decrease R elbow pain at rest to 0/10 with elbow in mild flexion of 43 deg's or less, and be able to move the arm after sitting idle with minimal to no pain. 04/21/21:goal met:painfree STG Duration 05/19/21 (goal met 04/21/21) [facility] Goal (LTG) Decrease R elbow pain to 0/10 with elbow in full extension to be able to don/doff jacket without pain. LTG Duration 07/04/21 One Impairment Pt lacks appropriate self care HEP. Short Term Goal (STG) Pt will be educate in proper posturing for sitting and working at computer. 04/21/21: discussed sitting front chair, has good height desk at elbow, recommended angle screen little lower than eye level allow tall trunk posture and CS back neutral with little chin nod flexion positioning. STG Duration 05/19/21 [facility]ci Goal (LTG) Pt will be independent in a self care HEP. LTG Duration 07/04/21 Assessment Summary Assessment Pt responded well to manual, modalities and initiated forward punch for progression strengthening to HEP. I feel over all seeing slow progression of improvement, looking for painfree arms extended in front under tension. Physical Therapy Plan Frequency and Duration Frequency of Treatment 2x/Week Plan of Care Start Date 04/05/21 Plan of Care End Date 05/19/21 Therapeutic Interventions Therapeutic Interventions Aquatic Therapy,Home Exercise Program,Joint Mobilizations, Manual Therapy,Neuromuscular Re-education,Patient/Caregiver Education,Self-Care/Home Management,Soft Tissue Mobilization,Taping, Therapeutic Exercises Modalities Cold Pack/Ice Massage,Electric Stimulation,Hot Packs, Iontophoresis,Traction- Mechanical,Ultrasound Other Therapeutic Interventions Iontophoresis with 4mg/mL Dexamethasone wtih Sodium Phosphate. Next Visit Focus/Plan Next Note Type Treatment Note Next Visit Plan Assess reponse to HEP: recheck iontophoresis, recheck forward punch and stretching, added mcknight carry/ torch carry. POC: Next treatment: Continue Ultrasound and or iontophoresis, STM of wrist extensors and ROM stretch to R wrist and elbow. Freight Unloader strengthening if painfree with gripping.
--- NOTE | 2021-05-03 12:26 | PT.OTN ---
Current Diagnoses Pain in right elbow (05/03/21) Physical Therapy Treatment Note PT-OP-A Visit Information Start: 04/01/21 17:40 Freq: Status: Active Protocol: Document 05/03/21 10:31 LRN (Rec: 05/03/21 11:24 LRN [id number]) Out-Patient Physical Therapy Visit Information Visit Information Visit Type Treatment Note Visit Start Time 10:32 Visit Stop Time 11:24 Total Visit Minutes 52 Visit Number 6 Evaluation Information Evaluation Date 04/05/21 Precautions Precautions Vertigo with history of falls, depression & anxiety controlled by medications. PT-OP-B Current Condition Start: 04/01/21 17:40 Freq: Status: Active Protocol: Document 04/05/21 10:43 LRN (Rec: 04/05/21 12:19 LRN [id number]) Current Condition History of Current Condition Onset Date 5-6 months ago Current Complaints R elbow pain History of Current Condition R elbow pain of insidious onset. Waking with trigger finger of R hand 4th and 3rd finger, a few days after started having R elbow pain. No tape allergies. Prior Treatments and Tests X-ray R elbow: No acute osseous abnormality. Future Testing and Treatments Planned none Developmental History Developmental History 1 yr ago similar onset, and lasted a few weeks. Pain lasted for 30-40' and then would go away. 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 Pt has history of constant back problems that he gets nerve ablation (L5 and below). Treatment Goals Patient/Caregiver Goals Pt goal is to reduce or eliminate the pain with activities (anytime arm is used). Prior Functional Status Baseline Function- ADL's Independent Baseline Function- Mobility Independent Baseline Function- Work/School Retired from [employer]. 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 Current Functional Impairments (Reported) Functional Limitations- ADL's Interfers with ability to milling general superintendent cell phone, (able if arm is close to body) but if arm is reaching out the pain is worse . If sits idle and move the elbow pops at lateral side of olecranon process. Pain removing jacket, dressing , brushing teeth, anything requiring grasping with arm extended. Not as bad if arm not extended. Grasping is when it is panful, or if extending arm without grasping it hurts. Functional Limitations- Work/School Same as above: Retired from [employer]. 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 Personal Factors Other Personal Factors That May Effect Lives [place]. 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 Vertigo with falls (not in recent 3-4 months), falls forward on stairs. Takes Prosaic for depression & anxiety. PT-OP-C Subjective Start: 04/01/21 17:40 Freq: Status: Active Protocol: Document 05/03/21 10:31 LRN (Rec: 05/03/21 11:24 LRN [id number]) OP-PT Subjective Patient Comments Patient Comments States the R elbow pain is only with extension or supination, rated 5/10. 90% of the time the pain is LATERALLY at the wrist extensors and lateral olecranon. Medial pain is present if use the arm more ( at medial epcondyle) at nerve. ..../....... R wrist pain. Patch helped, at nighttime didn't hurt to press laterally , not lasting pain. HEP: pain with putty ex's, elastic ex's no pain if elbow at 90 deg's flex, pain if > 90 deg's flex. PT-OP-H Neuro Start: 04/01/21 17:40 Freq: Status: Active Protocol: Document 04/05/21 10:43 LRN (Rec: 04/05/21 12:19 LRN [id number]) Sensation Evaluation Gross Sensation Gross Sensation WNL PT-OP-J Posture/Palpation/Skin Start: 04/01/21 17:40 Freq: Status: Active Protocol: Document 04/05/21 10:43 LRN (Rec: 04/05/21 12:19 LRN [id number]) Palpation Assessment Location Forearm Palpation Location upper 1/3 of forearm Palpation Findings Edema Palpation Details Girth measurement: 30cm right , 29 cm left. R wrist Palpation Location R wrist Palpation Details No pain R elbow Palpation Location R Lateral epicondyle Palpation Findings Tenderness Palpation Details Mild increase temperature Girth measurement: 18.8 cm right, 18 cm left PT-OP-K Range of Motion Start: 04/01/21 17:40 Freq: Status: Active Protocol: Document 04/08/21 12:50 LRN (Rec: 04/08/21 13:53 LRN [id number]) Elbow/Forearm Range of Motion Elbow/Forearm Right Active Elbow/Forearm ROM WFL No ROM Testing Position Sitting Comments (Extension lacks 20 deg's to neutral before onset of pain). Wrist Goniometric Range of Motion Wrist Right Wrist ROM WFL No Flexion Active (degrees) 67 Extension Active (degrees) 38 Ulnar Deviation Active (degrees) 35 Radial Deviation Active (degrees) 12 Left Wrist ROM WFL Yes Flexion Active (degrees) 60 Extension Active (degrees) 48 Ulnar Deviation Active (degrees) 44 Radial Deviation Active (degrees) 24 ROM Limitations Comments No pain in R elbow flex/ext PT-OP-M Strength Start: 04/01/21 17:40 Freq: Status: Active Protocol: Document 04/08/21 12:50 LRN (Rec: 04/08/21 13:53 LR [id number]) Elbow/Forearm Strength Elbow and Forearm Manual Muscle Testing Right Flexion (C6) 5 Normal Extension (C7) 5 Normal Pronation 5 Normal Supination 5 Normal Comments Pain with MMT of elbow ext and supination. Left Comments Generally 5/5 Hand Fork Truck Driver/Pinch Strength Hand Dominance Hand Dominance Right Hand Strength Left Comments Fork Truck Driver strength with 3 trials given: k, 48, 47 (avg is 48) lbs: 105, 105, 103 (avg is 104) Norm for 40-44 year olds is 51 kg Right Comments Fork Truck Driver strength with 3 trials given: k, 46, 44 (avg is 46) lbs: 95, 100, 105 (avg is 100) Norm for 40-44 year olds is 53 kg PT-OP-Q Treatments Start: 04/01/21 17:40 Freq: Status: Active Protocol: Document 05/03/21 10:31 LRN (Rec: 05/03/21 11:30 LRN [id number]) Therapeutic Exercises Sitting Exercises R wrist flex/ ext/ pronation/ supination Sitting Exercise Name Active ROM Side right Reps/Minutes 4' Comments v cuing needed for pt to hold stretch (benja w/pronation) Manual Therapy Treatment Soft Tissue Mobilization Wrist extensors @ R elbow Body Location Wrist Extensor muscle at proximal forearm Mobilization Type Cross-Friction Intensity/Depth Moderate Body Position Hooklying Joint Mobilizations ulnar lateral glide Joint ulnar-humeral mob: w/ strap Direction lateral, inferior Grade II Body Position Supine Reps/Duration 10' Comments Manual 3 positions, no compalints of pain, MWM wrist flex/ ext/ pron/ sup with no adverse affects. Manual Traction Cervical Details C traction during active R wrist flex/ext & sup/pron Body Position Hooklying Reps/Duration 8' Comments R elbow ~ 160 deg's extension. Manual Techniques MWM forearm for sup/pron Type PA glide Radius/AP glide Ulna with pron & reverse for supination Body Location R forearm Body Position Hooklying Reps/Duration 8' Self-Care/Home Management Treatment Education Patient Education Posture Other Education Discussed, at length, proper posture sitting and at nighttime. Recommended strategies to correct nighttime posturing ( pillows, spouse). Discussed alternative possible treatments for pain and for pt to talk to talk to referring physician of alternative pain management strategies (ex - accupuncture , cervical traction). Discussed & educated pt in proper sitting posture, with recommendations to help improve sitting posture. Activities Self-Care/Home Management Activities Issued handout for proper posturing in standing and sitting. I/S pt to decrease repetitions of ex and instead increase frequency of ex. PT-OP-R Modalities Start: 04/01/21 17:40 Freq: Status: Active Protocol: Document 05/03/21 10:31 LRN (Rec: 05/03/21 12:01 LRN [id number]) Iontophoresis Treatment R CET elbow Treatment Medication Dexamethasone (-) Medication Amount (mL) (ml) 1 Medication Dosage 4 mcg Treatment Polarity neg to positive Active Electrode Placement CET Treatment Duration (minutes) 8 Patient Tolerance Good Comment Treatment Comment Extra time needed for ionto set up. PT-OP-T Assessment and Plan Start: 04/01/21 17:40 Freq: Status: Active Protocol: Document 05/03/21 10:31 LRN (Rec: 05/03/21 11:24 LRN [id number]) Physical Therapy Assessment Goals Three Impairment Decreased R UE function due to R elbow pain (rated 5/10). Impairment UE QuickDASH Score - 54.54 (40 -59% impaired 40-59) Short Term Goal (STG) Improve R elbow AROM with pt able to reach forward to curing pickling packer cell phone with minimal to no pain. STG Duration 05/19/21 Channel Installer Goal (LTG) Improve R UE function per UE QuickDASH score of 19 or less (1-19% impaired, score 1-19), with pt able to dress, and brush his teeth with minimal to no pain. LTG Duration 07/04/21 Two Impairment Decreased painfree R elbow AROM Impairment R elbow painfree AROM: 43-130 deg's L elbow AROM: 0-137 deg's. 04/21/21: progressing: AROM 0-137 deg tissue restriction, painfree range 22 -137 deg (supine) Short Term Goal (STG) Decrease R elbow pain at rest to 0/10 with elbow in mild flexion of 43 deg's or less, and be able to move the arm after sitting idle with minimal to no pain. 04/21/21:goal met:painfree STG Duration 05/19/21 (goal met 04/21/21) Half-Way Goal (LTG) Decrease R elbow pain to 0/10 with elbow in full extension to be able to don/doff jacket without pain. LTG Duration 07/04/21 One Impairment Pt lacks appropriate self care HEP. Short Term Goal (STG) Pt will be educate in proper posturing for sitting and working at computer. 04/21/21: discussed sitting front chair, has good height desk at elbow, recommended angle screen little lower than eye level allow tall trunk posture and CS back neutral with little chin nod flexion positioning. (05/02/21: Issued sittin/ standing posture handout, discussed sleeping posture) STG Duration 05/19/21 (05/02/21: MET GOAL) Channel Installer Goal (LTG) Pt will be independent in a self care HEP. LTG Duration 07/04/21 Progress Towards Goals Progress Comments Progressed pt education in proper posturing standing, sitting and sleeping. Assessment Summary Assessment Pt is having R extensor tendon pain at elbow with theraputty squeezing ex; therefore discontinued. Pt able to do R wrist strengthening and stretches with elbow at 90 deg 's flexion. He is tolerating active (not resistive) wrist ROM with elbow maximally at 160 deg's ext during manual cervical traction. Pt presents with R lateral epicondylitis and from probably poor nighttime sleeping habits resulting in cervical R elbow nighttime radiculopathy and pain at elbow first in mornings. Pt may benefit from mechanical cervical traction. Positive response to Iontophoresis with reduction in pain at end of day (no pain with pressure). Complaints of grinding at R elbow is most likely arthritic in nature. Physical Therapy Plan Frequency and Duration Frequency of Treatment 2x/Week Plan of Care Start Date 04/05/21 Plan of Care End Date 05/19/21 Next Visit Focus/Plan Next Note Type Treatment Note Next Visit Plan Recheck forward punch and stretching. POC: Next treatment: Try cervical traction to start or end. Continue Ultrasound and or iontophoresis, STM of wrist extensors and ROM stretch to R wrist (pron>sup) and progress elbow to full ext without pain on use of wrist. Fork Truck Driver strengthening if painfree with gripping. ? mcknight carry/ torch carry ex.
--- NOTE | 2021-05-10 17:40 | PT.OTN ---
Current Diagnoses Pain in right elbow (05/10/21) Physical Therapy Treatment Note PT-OP-A Visit Information Start: 04/01/21 17:40 Freq: Status: Active Protocol: Document 05/10/21 09:00 LRN (Rec: 05/10/21 12:39 LRN [id number]) Out-Patient Physical Therapy Visit Information Visit Information Visit Type Treatment Note Visit Start Time 09:00 Visit Stop Time 09:45 Total Visit Minutes 45 Visit Number 7 Evaluation Information Evaluation Date 04/05/21 Precautions Precautions Vertigo with history of falls, depression & anxiety controlled by medications. PT-OP-B Current Condition Start: 04/01/21 17:40 Freq: Status: Active Protocol: Document 04/05/21 10:43 LRN (Rec: 04/05/21 12:19 LRN [id number]) Current Condition History of Current Condition Onset Date 5-6 months ago Current Complaints R elbow pain History of Current Condition R elbow pain of insidious onset. Waking with trigger finger of R hand 4th and 3rd finger, a few days after started having R elbow pain. No tape allergies. Prior Treatments and Tests X-ray R elbow: No acute osseous abnormality. Future Testing and Treatments Planned none Developmental History Developmental History 1 yr ago similar onset, and lasted a few weeks. Pain lasted for 30-40' and then would go away. 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 Pt has history of constant back problems that he gets nerve ablation (L5 and below). Treatment Goals Patient/Caregiver Goals Pt goal is to reduce or eliminate the pain with activities (anytime arm is used). Prior Functional Status Baseline Function- ADL's Independent Baseline Function- Mobility Independent Baseline Function- Work/School Retired from [employer]. 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 Current Functional Impairments (Reported) Functional Limitations- ADL's Interfers with ability to cisco certified network professional cell phone, (able if arm is close to body) but if arm is reaching out the pain is worse . If sits idle and move the elbow pops at lateral side of olecranon process. Pain removing jacket, dressing , brushing teeth, anything requiring grasping with arm extended. Not as bad if arm not extended. Grasping is when it is panful, or if extending arm without grasping it hurts. Functional Limitations- Work/School Same as above: Retired from [employer]. 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 Personal Factors Other Personal Factors That May Effect Lives Trail. 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 Vertigo with falls (not in recent 3-4 months), falls forward on stairs. Takes Prosaic for depression & anxiety. PT-OP-C Subjective Start: 04/01/21 17:40 Freq: Status: Active Protocol: Document 05/10/21 09:00 LRN (Rec: 05/10/21 12:39 LRN [id number]) OP-PT Subjective Patient Comments Patient Comments States the ionto gave pain relief. Still hurt to turn wrist CCW and has progressively worsened. He now has constant pain at his lateral elbow. Has stopped the strengthening as his elbow pain has worsened. States he has had lateral R elbow pain and now some miedial elbow pain. Has been wearing the elbow strap. PT-OP-H Neuro Start: 04/01/21 17:40 Freq: Status: Active Protocol: Document 04/05/21 10:43 LRN (Rec: 04/05/21 12:19 LRN [id number]) Sensation Evaluation Gross Sensation Gross Sensation WNL PT-OP-J Posture/Palpation/Skin Start: 04/01/21 17:40 Freq: Status: Active Protocol: Document 04/05/21 10:43 LRN (Rec: 04/05/21 12:19 LRN [id number]) Palpation Assessment Location Forearm Palpation Location upper 1/3 of forearm Palpation Findings Edema Palpation Details Girth measurement: 30cm right , 29 cm left. R wrist Palpation Location R wrist Palpation Details No pain R elbow Palpation Location R Lateral epicondyle Palpation Findings Tenderness Palpation Details Mild increase temperature Girth measurement: 18.8 cm right, 18 cm left PT-OP-K Range of Motion Start: 04/01/21 17:40 Freq: Status: Active Protocol: Document 04/08/21 12:50 LRN (Rec: 04/08/21 13:53 LRN [id number]) Elbow/Forearm Range of Motion Elbow/Forearm Right Active Elbow/Forearm ROM WFL No ROM Testing Position Sitting Comments (Extension lacks 20 deg's to neutral before onset of pain). Wrist Goniometric Range of Motion Wrist Right Wrist ROM WFL No Flexion Active (degrees) 67 Extension Active (degrees) 38 Ulnar Deviation Active (degrees) 35 Radial Deviation Active (degrees) 12 Left Wrist ROM WFL Yes Flexion Active (degrees) 60 Extension Active (degrees) 48 Ulnar Deviation Active (degrees) 44 Radial Deviation Active (degrees) 24 ROM Limitations Comments No pain in R elbow flex/ext PT-OP-M Strength Start: 04/01/21 17:40 Freq: Status: Active Protocol: Document 05/10/21 09:00 LRN (Rec: 05/10/21 12:39 LRN [id number]) Hand Desktop Publishing Associate/Pinch Strength Hand Strength Left Comments Desktop Publishing Associate strength with 3 trials given: k, 56, 52 (avg is 47), ( initial: 48, 48, 47, avg 48) Norm for 40-44 year olds is 51 kg Right Comments Desktop Publishing Associate strength with 3 trials given: k, 36, 32 (avg is 34), ( initial: 48, 46, 44 (avg is 46) Norm for 40-44 year olds is 53 kg PT-OP-Q Treatments Start: 04/01/21 17:40 Freq: Status: Active Protocol: Document 05/10/21 09:00 LRN (Rec: 05/10/21 12:39 LRN [id number]) Therapeutic Exercises Sitting Exercises R pronation stretch Sitting Exercise Name R active pronation stretch Side right Reps/Minutes 10x Comments Extra time taken to determine max kaveh mvmt R wrist flex/ ext/ pronation/ supination Sitting Exercise Name Wrist pronation/supination Side right Equipment Used Lev 1 TB Reps/Minutes 10x each Comments Extra time taken to find max tolerance ROM and resistance. R elbow ext stretch Sitting Exercise Name Active Elbow ext stretch Side right Reps/Minutes 5x 3 throughout therapy Standing Exercises forward punch Standing Exercise Name Active forward punch Side right Resistance TB#2 Reps/Minutes 10 x 2 with varying hgt of pull Comments Pt with less pain with forearm in neutral. Self-Care/Home Management Treatment Education Other Education Educated pt in contrast bath technique. Educated pt in Heelbo Elbow protector. Discussed progression of exercise from stretch/ice > dolores (gripping, dolores hold with TBand)/ice when pain decreased. Activities Self-Care/Home Management Activities I/S pt to do contrast bath 3-6 reps, increase use of ice to elbow with activity, hold on strengthening until pain returns to baseline. I/S pt to obtain heelbo for elbow for nighttime sleep and to continue to avoid sleeping with R arm overhead. PT-OP-R Modalities Start: 04/01/21 17:40 Freq: Status: Active Protocol: Document 05/10/21 09:00 LRN (Rec: 05/10/21 12:39 LRN [id number]) Iontophoresis Treatment R CET elbow Treatment Medication Dexamethasone (-) Medication Amount (mL) (ml) 1 Medication Dosage 4 mcg Treatment Polarity neg to positive Active Electrode Placement Carpel Ext Tendon Treatment Duration (minutes) 8 Patient Tolerance Good Ultrasound Therapy Treatment R med WFT Treatment Duration (minutes) 4 Patient Position Supine Coupling Medium Ultrasound Gel Applicator Size (cm2) 2 Mode Setting Continuous Intensity Setting (w/cm2) 1.0 Comments Wrist common flexor tendon attachment at elbow R lateral elbow Treatment Duration (minutes) 4 Patient Position Supine Coupling Medium Ultrasound Gel Applicator Size (cm2) 2 Frequency Setting (mHz) 3 Mode Setting Continuous Intensity Setting (w/cm2) 1.0 Comments Wrist common extensor tendon attachment at elbow PT-OP-T Assessment and Plan Start: 04/01/21 17:40 Freq: Status: Active Protocol: Document 05/10/21 09:00 LRN (Rec: 05/10/21 12:39 LRN [id number]) Physical Therapy Assessment Goals Three Impairment Decreased R UE function due to R elbow pain (rated 5/10). Impairment UE QuickDASH Score - 54.54 (40 -59% impaired 40-59) Short Term Goal (STG) Improve R elbow AROM with pt able to reach forward to picker cell phone with minimal to no pain. STG Duration 05/19/21 Sr. Operations Manager Goal (LTG) Improve R UE function per UE QuickDASH score of 19 or less (1-19% impaired, score 1-19), with pt able to dress, and brush his teeth with minimal to no pain. LTG Duration 07/04/21 Two Impairment Decreased painfree R elbow AROM Impairment R elbow painfree AROM: 43-130 deg's L elbow AROM: 0-137 deg's. 04/21/21: progressing: AROM 0-137 deg tissue restriction, painfree range 22 -137 deg (supine) Short Term Goal (STG) Decrease R elbow pain at rest to 0/10 with elbow in mild flexion of 43 deg's or less, and be able to move the arm after sitting idle with minimal to no pain. 04/21/21:goal met:painfree STG Duration 05/19/21 (goal met 04/21/21) Custodial Goal (LTG) Decrease R elbow pain to 0/10 with elbow in full extension to be able to don/doff jacket without pain. LTG Duration 07/04/21 One Impairment Pt lacks appropriate self care HEP. Short Term Goal (STG) Pt will be educate in proper posturing for sitting and working at computer. 04/21/21: discussed sitting front chair, has good height desk at elbow, recommended angle screen little lower than eye level allow tall trunk posture and CS back neutral with little chin nod flexion positioning. (05/02/21: Issued sittin/ standing posture handout, discussed sleeping posture) STG Duration 05/19/21 (05/02/21: MET GOAL) Sr. Operations Manager Goal (LTG) Pt will be independent in a self care HEP. LTG Duration 07/04/21 Assessment Summary Assessment Pt presents with increased R elbow pain and new onset of medial wrist flex tendon pain at elbow attachment. Pt has + cubital tinel sign indicating nerve involvement. Pt is very restricted with wrist ext ROM. His cisco certified network professional strength has decrease on the R (dominant side) and increased on his L side. Pt may need EMG test if pt contines to decrease. Physical Therapy Plan Frequency and Duration Frequency of Treatment 2x/Week Plan of Care Start Date 04/05/21 Plan of Care End Date 05/19/21 Next Visit Focus/Plan Next Note Type Progress Note Next Visit Plan Progress note next week with POC ending 05/19/21. Assess response to treatment. Start with [place] if pt at start has R elbow pain. Check pt adherence to obtaining heelbo for elbow, and use of contrast baths (issue handout if needed). Assess need to refer pt back to MD for a possible nerve conduction study. POC: Continue Ultrasound and/or iontophoresis, STM of wrist extensors and ROM stretch to R wrist (pron>sup) and progress elbow to full ext without pain on use of wrist. Desktop Publishing Associate strengthening and other isometric ex if painfree with gripping. Start U-form Dolores strengthening for sup/pron. ? mcknight carry/ torch carry ex .
--- NOTE | 2021-05-13 13:50 | PT.OTN ---
Current Diagnoses Pain in right elbow (05/13/21) Physical Therapy Treatment Note PT-OP-A Visit Information Start: 04/01/21 17:40 Freq: Status: Active Protocol: Document 05/13/21 13:12 SP (Rec: 05/13/21 14:38 SP [id number]) Out-Patient Physical Therapy Visit Information Visit Information Visit Type Treatment Note Visit Note Updated POC next tx, expires . Visit Start Time 13:08 Visit Stop Time 13:50 Total Visit Minutes 42 Visit Number 8 Number of ICT PROJECT MANAGER Visits 1 Evaluation Information Evaluation Date 04/05/21 Precautions Precautions Vertigo with history of falls, depression & anxiety controlled by medications. PT-OP-B Current Condition Start: 04/01/21 17:40 Freq: Status: Active Protocol: Document 04/05/21 10:43 LRN (Rec: 04/05/21 12:19 LRN [id number]) Current Condition History of Current Condition Onset Date 5-6 months ago Current Complaints R elbow pain History of Current Condition R elbow pain of insidious onset. Waking with trigger finger of R hand 4th and 3rd finger, a few days after started having R elbow pain. No tape allergies. Prior Treatments and Tests X-ray R elbow: No acute osseous abnormality. Future Testing and Treatments Planned none Developmental History Developmental History 1 yr ago similar onset, and lasted a few weeks. Pain lasted for 30-40' and then would go away. 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 Pt has history of constant back problems that he gets nerve ablation (L5 and below). Treatment Goals Patient/Caregiver Goals Pt goal is to reduce or eliminate the pain with activities (anytime arm is used). Prior Functional Status Baseline Function- ADL's Independent Baseline Function- Mobility Independent Baseline Function- Work/School Retired from [employer]. 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 Current Functional Impairments (Reported) Functional Limitations- ADL's Interfers with ability to clothing pattern preparer cell phone, (able if arm is close to body) but if arm is reaching out the pain is worse . If sits idle and move the elbow pops at lateral side of olecranon process. Pain removing jacket, dressing , brushing teeth, anything requiring grasping with arm extended. Not as bad if arm not extended. Grasping is when it is panful, or if extending arm without grasping it hurts. Functional Limitations- Work/School Same as above: Retired from [employer]. 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 Personal Factors Other Personal Factors That May Effect [place]. 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 Vertigo with falls (not in recent 3-4 months), falls forward on stairs. Takes Prosaic for depression & anxiety. PT-OP-C Subjective Start: 04/01/21 17:40 Freq: Status: Active Protocol: Document 05/13/21 13:12 SP (Rec: 05/13/21 14:38 SP [id number]) OP-PT Subjective Patient Comments Patient Comments Pt reported does wear a self purchased R wrist brace and tennis elbow strap at night and when needed durign day with pain that does help but not made significant difference. He reports the iontophoresis only lasting about 1 hr after removes it and used to last through the night, R elbow pain feels worse over medial CFT especially when pronates end range. Pt stated wondering if PT sent a message to Dr Mederos if further assessment might be needed as PT discussed last tx. PT-OP-H Neuro Start: 04/01/21 17:40 Freq: Status: Active Protocol: Document 04/05/21 10:43 LRN (Rec: 04/05/21 12:19 LRN [id number]) Sensation Evaluation Gross Sensation Gross Sensation WNL PT-OP-J Posture/Palpation/Skin Start: 04/01/21 17:40 Freq: Status: Active Protocol: Document 04/05/21 10:43 LRN (Rec: 04/05/21 12:19 LRN [id number]) Palpation Assessment Location Forearm Palpation Location upper 1/3 of forearm Palpation Findings Edema Palpation Details Girth measurement: 30cm right , 29 cm left. R wrist Palpation Location R wrist Palpation Details No pain R elbow Palpation Location R Lateral epicondyle Palpation Findings Tenderness Palpation Details Mild increase temperature Girth measurement: 18.8 cm right, 18 cm left PT-OP-K Range of Motion Start: 04/01/21 17:40 Freq: Status: Active Protocol: Document 04/08/21 12:50 LRN (Rec: 04/08/21 13:53 LRN [id number]) Elbow/Forearm Range of Motion Elbow/Forearm Right Active Elbow/Forearm ROM WFL No ROM Testing Position Sitting Comments (Extension lacks 20 deg's to neutral before onset of pain). Wrist Goniometric Range of Motion Wrist Right Wrist ROM WFL No Flexion Active (degrees) 67 Extension Active (degrees) 38 Ulnar Deviation Active (degrees) 35 Radial Deviation Active (degrees) 12 Left Wrist ROM WFL Yes Flexion Active (degrees) 60 Extension Active (degrees) 48 Ulnar Deviation Active (degrees) 44 Radial Deviation Active (degrees) 24 ROM Limitations Comments No pain in R elbow flex/ext PT-OP-M Strength Start: 04/01/21 17:40 Freq: Status: Active Protocol: Document 05/10/21 09:00 LRN (Rec: 05/10/21 12:39 LRN [id number]) Hand Drywall Finisher Foreman/Pinch Strength Hand Strength Left Comments Drywall Finisher Foreman strength with 3 trials given: k, 56, 52 (avg is 47), ( initial: 48, 48, 47, avg 48) Norm for 40-44 year olds is 51 kg Right Comments Drywall Finisher Foreman strength with 3 trials given: k, 36, 32 (avg is 34), ( initial: 48, 46, 44 (avg is 46) Norm for 40-44 year olds is 53 kg PT-OP-Q Treatments Start: 04/01/21 17:40 Freq: Status: Active Protocol: Document 05/13/21 13:12 SP (Rec: 05/13/21 14:38 SP [id number]) Therapeutic Exercises Supine Exercises CS rotation w/ nods Supine Exercise Name nods flex/ ext small range Side bilateral Resistance AROM Equipment Used added to HEP (didn't want HOs) Reps/Minutes 2x5 Comments painfree CS elongation Supine Exercise Name w/head nod (small range flex/ ext) to neutral spinal alignment Resistance added to HEP (didn't want HOs) Reps/Minutes 5 sec hold x8 Comments painfree Sitting Exercises R pronation stretch Sitting Exercise Name R active pronation stretch Side right Reps/Minutes x2 Comments increased pain so stopped R elbow ext stretch Sitting Exercise Name Active Elbow ext stretch Side right Reps/Minutes 5x 3 throughout therapy Manual Therapy Treatment Soft Tissue Mobilization Wrist extensors @ R elbow Body Location Wrist Extensor muscle at proximal forearm Mobilization Type Cross-Friction Intensity/Depth Moderate Body Position Hooklying Comments attempted gentle STMs but STOPPED due to tender to any pressure. Joint Mobilizations ulnar lateral glide Joint ulnar-humeral mob: w/ strap Direction lateral, inferior Grade II Body Position Supine Reps/Duration 10' Comments Manual 3 positions, no compalints of pain, MWM wrist flex/ ext/ pron/ sup with no adverse affects. Manual Traction Cervical Details C traction R arm at side Body Position Hooklying Reps/Duration 8' Comments R elbow ~ 160 deg's extension. Self-Care/Home Management Treatment Education Patient Education Pain Management,Posture Other Education Ed use of tennis elbow strap with positioning placement. Wearing wrist brace he purchased if needed for limiting wrist mobiltiy and allowing proximal common flexor and extensor tendons rest. Pt states does and doesn 't see significant difference in pain. Initiated cervical retraction, rotation w/ head nods/ turns, pain free response in supine (pt didn't want HOs) PT-OP-R Modalities Start: 04/01/21 17:40 Freq: Status: Active Protocol: Document 05/13/21 13:12 SP (Rec: 05/13/21 14:38 SP [id number]) Iontophoresis Treatment R CET elbow Treatment Medication Dexamethasone (-) Medication Amount (mL) (ml) 1 Medication Dosage 4 mcg Treatment Polarity neg to positive Active Electrode Placement Carpal Flexor Tendons proximal attachments Treatment Duration (minutes) 8 Patient Tolerance Good Ultrasound Therapy Treatment R med WFT Treatment Duration (minutes) 4 Patient Position Supine Coupling Medium Ultrasound Gel Applicator Size (cm2) 2 Mode Setting Continuous Intensity Setting (w/cm2) 1.0 Comments Wrist common flexor tendon attachment at elbow R lateral elbow Treatment Duration (minutes) 8 Patient Position Supine Coupling Medium Ultrasound Gel Applicator Size (cm2) 2 Frequency Setting (mHz) 3 Mode Setting Continuous Intensity Setting (w/cm2) 1.0 Comments Wrist common extensor tendon attachment at elbow PT-OP-T Assessment and Plan Start: 04/01/21 17:40 Freq: Status: Active Protocol: Document 05/13/21 13:12 SP (Rec: 05/13/21 14:38 SP [id number]) Physical Therapy Assessment Goals Three Impairment Decreased R UE function due to R elbow pain (rated 5/10). Impairment UE QuickDASH Score - 54.54 (40 -59% impaired 40-59) Short Term Goal (STG) Improve R elbow AROM with pt able to reach forward to belt picker cell phone with minimal to no pain. STG Duration 05/19/21 Plastics Production Machine Operator Goal (LTG) Improve R UE function per UE QuickDASH score of 19 or less (1-19% impaired, score 1-19), with pt able to dress, and brush his teeth with minimal to no pain. LTG Duration 07/04/21 Two Impairment Decreased painfree R elbow AROM Impairment R elbow painfree AROM: 43-130 deg's L elbow AROM: 0-137 deg's. 04/21/21: progressing: AROM 0-137 deg tissue restriction, painfree range 22 -137 deg (supine) Short Term Goal (STG) Decrease R elbow pain at rest to 0/10 with elbow in mild flexion of 43 deg's or less, and be able to move the arm after sitting idle with minimal to no pain. 04/21/21:goal met:painfree STG Duration 05/19/21 (goal met 04/21/21) Plastics Production Machine Operator Goal (LTG) Decrease R elbow pain to 0/10 with elbow in full extension to be able to don/doff jacket without pain. LTG Duration 07/04/21 One Impairment Pt lacks appropriate self care HEP. Short Term Goal (STG) Pt will be educate in proper posturing for sitting and working at computer. 04/21/21: discussed sitting front chair, has good height desk at elbow, recommended angle screen little lower than eye level allow tall trunk posture and CS back neutral with little chin nod flexion positioning. (05/02/21: Issued sittin/ standing posture handout, discussed sleeping posture) STG Duration 05/19/21 (05/02/21: MET GOAL) Mcfp Goal (LTG) Pt will be independent in a self care HEP. LTG Duration 07/04/21 Assessment Summary Assessment Pt responded with less pain post manual lateral and inferior ulnarhumeral mobs end of tx. Initiated manual but to sensitive to any pressure so stopped and provided US with better response. ICT PROJECT MANAGER discussed contacting referring physician Dr Mederos regarding no significant improvement in mobiltiy and pain overall and assessment of decreased clothing pattern preparer strength last tx compared to initial eval. Pt continues to be limited to pain with basic ADLs and finding manual STMs, TB and gripping exercises cause continuedd increased irritation to lateral proximal common extensor tendon and lately over medial proximal common flexor tendons. Pt reported little more relief after lateral and inferior mobs but reports US and iontophoresis is helpful but not as long lasting relief of pain lately. Physical Therapy Plan Frequency and Duration Frequency of Treatment 2x/Week Plan of Care Start Date 04/05/21 Plan of Care End Date 05/19/21 Therapeutic Interventions Therapeutic Interventions Aquatic Therapy,Home Exercise Program,Joint Mobilizations, Manual Therapy,Neuromuscular Re-education,Patient/Caregiver Education,Self-Care/Home Management,Soft Tissue Mobilization,Taping, Therapeutic Exercises Modalities Cold Pack/Ice Massage,Electric Stimulation,Hot Packs, Iontophoresis,Traction- Mechanical,Ultrasound Other Therapeutic Interventions Iontophoresis with 4mg/mL Dexamethasone wtih Sodium Phosphate. Other Referrals/Consults Referrals/Consults Recommended PT identified in 05/10/21 treatment plan: possible further assess need to refer pt back to MD for a possible nerve conduction study. Next Visit Focus/Plan Next Note Type Progress Note Next Visit Plan Progress note next appt with POC ending 05/19/21. Assess response to last treatment. Start with [place] if pt at start has R elbow pain. Check pt adherence to obtaining heelbo for elbow, and use of contrast baths ( issue handout if needed). Assess need to refer pt back to MD for a possible nerve conduction study. POC: Continue Ultrasound and/or iontophoresis, STM of wrist extensors and ROM stretch to R wrist (pron>sup) and progress elbow to full ext without pain on use of wrist. Drywall Finisher Foreman strengthening and other isometric ex if painfree with gripping. Start U-form Dolores strengthening for sup/pron.
--- NOTE | 2021-05-17 17:09 | PT.OTN ---
Current Diagnoses Pain in right elbow (05/17/21) Physical Therapy Treatment Note PT-OP-A Visit Information Start: 04/01/21 17:40 Freq: Status: Active Protocol: Document 05/17/21 09:07 LRN (Rec: 05/17/21 09:51 LRN [id number]) Out-Patient Physical Therapy Visit Information Visit Information Visit Type Treatment Note Visit Start Time 09:07 Visit Stop Time 09:51 Total Visit Minutes 44 Visit Number 9 Evaluation Information Evaluation Date 04/05/21 Precautions Precautions Vertigo with history of falls, depression & anxiety controlled by medications. PT-OP-B Current Condition Start: 04/01/21 17:40 Freq: Status: Active Protocol: Document 04/05/21 10:43 LRN (Rec: 04/05/21 12:19 LRN [id number]) Current Condition History of Current Condition Onset Date 5-6 months ago Current Complaints R elbow pain History of Current Condition R elbow pain of insidious onset. Waking with trigger finger of R hand 4th and 3rd finger, a few days after started having R elbow pain. No tape allergies. Prior Treatments and Tests X-ray R elbow: No acute osseous abnormality. Future Testing and Treatments Planned none Developmental History Developmental History 1 yr ago similar onset, and lasted a few weeks. Pain lasted for 30-40' and then would go away. 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 Pt has history of constant back problems that he gets nerve ablation (L5 and below). Treatment Goals Patient/Caregiver Goals Pt goal is to reduce or eliminate the pain with activities (anytime arm is used). Prior Functional Status Baseline Function- ADL's Independent Baseline Function- Mobility Independent Baseline Function- Work/School Retired from [employer]. 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 Current Functional Impairments (Reported) Functional Limitations- ADL's Interfers with ability to sandstone splitter cell phone, (able if arm is close to body) but if arm is reaching out the pain is worse . If sits idle and move the elbow pops at lateral side of olecranon process. Pain removing jacket, dressing , brushing teeth, anything requiring grasping with arm extended. Not as bad if arm not extended. Grasping is when it is panful, or if extending arm without grasping it hurts. Functional Limitations- Work/School Same as above: Retired from [employer]. 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 Personal Factors Other Personal Factors That May Effect Lives [place]. 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 Vertigo with falls (not in recent 3-4 months), falls forward on stairs. Takes Prosaic for depression & anxiety. PT-OP-C Subjective Start: 04/01/21 17:40 Freq: Status: Active Protocol: Document 05/17/21 09:07 LRN (Rec: 05/17/21 09:51 LRN [id number]) OP-PT Subjective Patient Comments Patient Comments Fell out of back of trunk 2 days ago. Made strength worse in R arm. and back of R arm started hurting. OP-PT Pain Assessment Location R elbow Pain Location Details R elbow lateral ext tendons and medial epicondyle. Intensity 5 PT-OP-H Neuro Start: 04/01/21 17:40 Freq: Status: Active Protocol: Document 04/05/21 10:43 LRN (Rec: 04/05/21 12:19 LRN [id number]) Sensation Evaluation Gross Sensation Gross Sensation WNL PT-OP-J Posture/Palpation/Skin Start: 04/01/21 17:40 Freq: Status: Active Protocol: Document 04/05/21 10:43 LRN (Rec: 04/05/21 12:19 LRN [id number]) Palpation Assessment Location Forearm Palpation Location upper 1/3 of forearm Palpation Findings Edema Palpation Details Girth measurement: 30cm right , 29 cm left. R wrist Palpation Location R wrist Palpation Details No pain R elbow Palpation Location R Lateral epicondyle Palpation Findings Tenderness Palpation Details Mild increase temperature Girth measurement: 18.8 cm right, 18 cm left PT-OP-K Range of Motion Start: 04/01/21 17:40 Freq: Status: Active Protocol: Document 05/17/21 09:07 LRN (Rec: 05/17/21 17:09 LRN [id number]) Elbow/Forearm Range of Motion Elbow/Forearm Right Active ROM Testing Position Supine Elbow Flexion (degrees) 125 Elbow Extension (degrees) 33 Comments Measured above is painfree range. PT-OP-M Strength Start: 04/01/21 17:40 Freq: Status: Active Protocol: Document 05/10/21 09:00 LRN (Rec: 05/10/21 12:39 LRN [id number]) Hand Stadium Manager/Pinch Strength Hand Strength Left Comments Stadium Manager strength with 3 trials given: k, 56, 52 (avg is 47), ( initial: 48, 48, 47, avg 48) Norm for 40-44 year olds is 51 kg Right Comments Stadium Manager strength with 3 trials given: k, 36, 32 (avg is 34), ( initial: 48, 46, 44 (avg is 46) Norm for 40-44 year olds is 53 kg PT-OP-Q Treatments Start: 04/01/21 17:40 Freq: Status: Active Protocol: Document 05/17/21 09:07 LRN (Rec: 05/17/21 09:51 LR [id number]) Therapeutic Exercises Sitting Exercises R elbow ext stretch Sitting Exercise Name Active Elbow ext stretch Side right Reps/Minutes 6' Comments ROM taken Manual Therapy Treatment Manual Traction Cervical Details Saunder's C tx @ 12# Body Position Hooklying Reps/Duration 12' Comments 30 deg's elevated. Extra time taken for set up. Traction time 8'. PT-OP-R Modalities Start: 04/01/21 17:40 Freq: Status: Active Protocol: Document 05/17/21 09:07 LRN (Rec: 05/17/21 09:51 LR [id number]) Iontophoresis Treatment R CET elbow Treatment Medication Dexamethasone (-) Medication Amount (mL) (ml) 1 Medication Dosage 4 mcg Treatment Polarity neg to positive Active Electrode Placement Carpal Flexor Tendons inferiorly at proximal Ulna Treatment Duration (minutes) 8 Patient Tolerance Good Ultrasound Therapy Treatment R lateral elbow Treatment Duration (minutes) 8 Patient Position Supine Coupling Medium Ultrasound Gel Applicator Size (cm2) 2 Frequency Setting (mHz) 3 Mode Setting Continuous Intensity Setting (w/cm2) 1.0 Comments Wrist common extensor tendon attachment at elbow PT-OP-T Assessment and Plan Start: 04/01/21 17:40 Freq: Status: Active Protocol: Document 05/17/21 09:07 LRN (Rec: 05/17/21 09:51 [facility] [id number]) Physical Therapy Assessment Goals Three Impairment Decreased R UE function due to R elbow pain (rated 5/10). Impairment UE QuickDASH Score - 54.54 (40 -59% impaired 40-59) Short Term Goal (STG) Improve R elbow AROM with pt able to reach forward to leaf size picker cell phone with minimal to no pain. STG Duration 05/19/21 (05/17/21: NOT MET, worsening of symptoms) Correction Goal (LTG) Improve R UE function per UE QuickDASH score of 19 or less (1-19% impaired, score 1-19), with pt able to dress, and brush his teeth with minimal to no pain. (05/17/21: UE QuickDASH score is 59) LTG Duration 07/04/21 (05/17/21: Worse) Two Impairment Decreased painfree R elbow AROM Impairment R elbow painfree AROM: 43-130 deg's L elbow AROM: 0-137 deg's. 04/21/21: progressing: AROM 0-137 deg tissue restriction, painfree range 22 -137 deg (supine) Short Term Goal (STG) Decrease R elbow pain at rest to 0/10 with elbow in mild flexion of 43 deg's or less, and be able to move the arm after sitting idle with minimal to no pain. (04/21/21:goal met:painfree) (05/17/21: Painfree range 33- 125 deg's, pain at rest) STG Duration 05/19/21 (goal met 04/21/21) Correction Goal (LTG) Decrease R elbow pain to 0/10 with elbow in full extension to be able to don/doff jacket without pain. LTG Duration 07/04/21 (05/17/21: Worse) One Impairment Pt lacks appropriate self care HEP. Short Term Goal (STG) Pt will be educate in proper posturing for sitting and working at computer. 04/21/21: discussed sitting front chair, has good height desk at elbow, recommended angle screen little lower than eye level allow tall trunk posture and CS back neutral with little chin nod flexion positioning. (05/02/21: Issued sitting/ standing posture handout, discussed sleeping posture) STG Duration 05/19/21 (05/02/21: MET GOAL) Correction Goal (LTG) Pt will be independent in a self care HEP. (04/12/21: self care sustained pressure over CET w/ wrist flex/ ext/ pron/ supination and added TB #[address] painfree range). (04/15/21: yellow theraputty for R UE sandstone splitter strength). (04/21/21: Initiated resisted forward punch to HEP ). (05/03/21: decrease repetitions of ex and instead increase frequency of ex. ) LTG Duration 07/04/21 (05/17/21: Pt has HEP for current status) Progress Towards Goals Progress Towards Goals Slow Progress due to Activity Tolerance Assessment Summary Assessment Pt overall showed initial improvement, but with start of strengthening ex's he has shown no improvement and has actually started to get medial elbow pain onset. He fell from his truck 2 days ago and has had more R UE pain. No change in R elbow pain with Ley C. tx; ruling out cervical involvement. He has had a positive response to use of Iontophoresis with 4mg/mL Dexamethasone w/Sodium Phosphate. He appears to have functionally limiting tendonitis of the R elbow with complaints consistent with tennis elbow. He has now complaints of medial elbow pain that is at the medial epicondyle. I would recommend further testing, possibly an EMG and orthopedic assessment for other recommendations of treatment. The pt does have a wrist brace to minimize wrist flex/ext and a elbow strap for his tennis elbow that initially helped. If further treatment is needed an an Occupational Therapy referral would be appropriate for this patient. Physical Therapy Plan Discharge Physical Therapy Discharge Reasons Plateau in Progress Discharge Comments Pt is being referred back to your office for further medical assessment and recommendations. He had a recent fall from his truck with increased R UE pain. Please see assessment above. Thank you for your referral.
== END 2021-05-17 09:01 ==
LOC: PHYS 09:00
PROVIDERS: Family Provider Family Medicine; PCP Family Medicine; Referring Provider Family Medicine; Visit Provider Family Medicine
DX: M25.521 Pain in right elbow (principal)
CPT/HCPCS: 97033; 97035; 97110; 97140; 97162; 97535

== ENCOUNTER → 2021-07-10 10:39 | Outpatient (CLI) | payer OTHER, SELFPAY ==
--- NOTE | 2021-07-10 10:40 | DI.MRI.S_ITS ---
PROCEDURE: MR ELBOW RT WO CON INDICATIONS: chronic right elbow pain not improved with PT TECHNIQUE: Noncontrast coronal proton density fast spin echo and T2 fast spin echo with fat saturation, axial and sagittal T1 spin echo and T2 fast spin echo with fat saturation through the elbow. COMPARISON: [facility], CR, XR ELBOW RT MIN 3V, 02/22/2021, 9:31. FINDINGS: Image quality: There is mild inhomogeneous fat saturation. Lateral structures: The lateral ulnar collateral ligament and radial collateral ligament both appear intact. The annular ligament also appears intact. The overlying common extensor tendon demonstrates mild thickening proximally with mild peritendinous edema and mild partial tearing at its origin. Medial structures: The ulnar collateral ligament appears intact. The overlying common flexor tendon appears within normal limits. The ulnar nerve appears normal in size and signal within the cubital tunnel. Anterior structures: The biceps and brachialis tendons both appear intact as they insert onto the proximal radius and ulna, respectively. No bicipitoradial bursal fluid. The median and radial neurovascular bundles appear normal; no focal muscle atrophy to suggest nerve impingement. Posterior structures: The conjoint triceps tendon from the long and lateral heads appears intact. The medial head of the triceps tendon also appears normal, with direct muscle insertion onto the olecranon. No olecranon bursal fluid. Bone and cartilage: No bone marrow contusions or fractures. No discrete osteochondral lesions. There is mild subchondral edema and subchondral cystic change within the ulnar aspect of the radial head. IMPRESSION: 1. Thickening of the common extensor tendon with mild peritendinous edema and mild partial tearing at its origin consistent with lateral epicondylitis. 2. Small region of subchondral bone marrow edema and subchondral cystic change within the radial head without a definite displaced or depressed fracture identified. The findings likely represent sequelae of degenerative changes but the differential also includes a bone contusion or mild impaction injury. Dictated by: Holger Gramajo M.D. on 07/11/2021 at 11:40 Approved by: Holger Gramajo M.D. on 07/11/2021 at 11:58
== END ==
PROVIDERS: Family Provider Family Medicine; PCP Family Medicine; Referring Provider Family Medicine; Visit Provider Family Medicine
DX: S56.511A Strain of other extensor muscle, fascia and tendon at forearm level, right arm, initial encounter (principal); M25.521 Pain in right elbow
CPT/HCPCS: 73221

== ENCOUNTER → 2022-06-01 08:13 | Outpatient (CLI) | payer OTHER, SELFPAY ==
[2022-06-01 09:48] LABS: Add Manual Diff / Slide Review NO; Basophils Absolute Auto 0 /uL (0-100); Basophils Percent Auto 0.4 % (0-2); Eosinophils Absolute Auto 0 /uL (0-450); Eosinophils Percent Auto 0.9 % (2-4); Hemoglobin 15.5 g/dL (13.5-17.5); Lymphocytes Absolute Auto 1500 /uL (1100-4500); Lymphocytes Percent Auto 29.4 % (25-40); Mean Corpuscular HGB Conc 34.4 % (30-36); Mean Corpuscular Hemoglobin 32.2 PG (26-34); Mean Corpuscular Volume 93.7 fL (80-100); Monocytes Absolute Auto 400 /uL (0-900); Monocytes Percent Auto 7.7 % (3-14); Neutrophils Absolute Auto 3200 /uL (1500-7000); Neutrophils Percent Auto 61.6 % (50-75); Platelet Count 218 X10^3/uL (150-400); Red Cell Distribution Width 12.7 % (11.6-14.8); White Blood Cell Count 5.2 X10^3/uL (4.5-11.0)
[2022-06-01 10:51] LABS: Alanine Aminotransferase 58 IU/L (<50); Albumin 4.4 g/dL (3.5-5.0); Albumin Globulin Ratio 1.6 (1.0-2.8); Alkaline Phosphatase 85 U/L (38-126); Aspartate Aminotransferase 41 IU/L (17-59); BUN Creatinine Ratio 11.2 (6-22); Blood Urea Nitrogen 10 mg/dL (9-20); Calcium 9.1 mg/dL (8.4-10.2); Carbon Dioxide 28 mmol/L (22-32); Chloride 102 mmol/L (98-107); Cholesterol 176 mg/dL (140-199); Estimated Glomerular Filt Rate > 60 mL/min (>60); Globulin 2.8 g/dL (1.7-4.1); Glucose 86 mg/dL (70-100); HDL Cholesterol 32 mg/dL (40-60); HEMOLYSIS < 15 (0-50); LDL Cholesterol Calculated 113 mg/dL (<100); Potassium 4.2 mmol/L (3.4-5.1); Sodium 138 mmol/L (137-145); Total Protein 7.2 g/dL (6.3-8.2); Triglycerides 154 mg/dL (35-150)
[2022-06-01 11:15] LABS: TSH w/ Reflex to FT4 0.93 uIU/mL (0.47-4.68)
== END ==
PROVIDERS: Family Provider Family Medicine; PCP Family Medicine; Referring Provider Family Medicine; Visit Provider Family Medicine
DX: G43.909 Migraine, unspecified, not intractable, without status migrainosus (principal); R51.9 Headache, unspecified
CPT/HCPCS: 36415; 80053; 80061; 84443; 85025

== ENCOUNTER → 2022-06-21 11:50 | Outpatient (CLI) | payer OTHER, SELFPAY ==
--- NOTE | 2022-06-21 11:54 | DI.RAD.S_ITS ---
PROCEDURE: XR CERVICAL SPINE 2V OR 3V INDICATIONS: neck strain TECHNIQUE: 3 view(s) of the cervical spine were acquired. COMPARISON: None. FINDINGS: Bones: No fractures or dislocations to the T1 level. The lateral masses of C1 appear intact on the odontoid view. No suspicious bony lesions. Soft tissues: No prevertebral soft tissue swelling. IMPRESSION: Normal cervical spine radiographs Approved by: Manny Crisostomo M.D. on 06/21/2022 at 13:06
== END ==
PROVIDERS: Family Provider Family Medicine; PCP Family Medicine; Referring Provider Nurse Practitioner Family; Visit Provider Nurse Practitioner Family
DX: S16.1XXA Strain of muscle, fascia and tendon at neck level, initial encounter (principal); X58.XXXA Exposure to other specified factors, initial encounter
CPT/HCPCS: 72040

== ENCOUNTER → 2022-10-24 09:55 | Outpatient (CLI) | payer OTHER, SELFPAY ==
[2022-10-24 10:32] LABS: Alanine Aminotransferase 37 IU/L (<50); Albumin 4.7 g/dL (3.5-5.0); Albumin Globulin Ratio 1.6 (1.0-2.8); Alkaline Phosphatase 77 U/L (38-126); Aspartate Aminotransferase 31 IU/L (17-59); BUN Creatinine Ratio 6.9 (6-22); Bilirubin Total 1.2 mg/dL (0.2-1.3); Blood Urea Nitrogen 7 mg/dL (9-20); Calcium 9.7 mg/dL (8.4-10.2); Carbon Dioxide 29 mmol/L (22-32); Chloride 101 mmol/L (98-107); Estimated Glomerular Filt Rate > 60 mL/min (>60); Glucose 103 mg/dL (70-100); HEMOLYSIS < 15 (0-50); Potassium 5.1 mmol/L (3.4-5.1); Sodium 139 mmol/L (137-145); Total Protein 7.7 g/dL (6.3-8.2)
[2022-10-24 11:22] LABS: Vitamin B12 478 pg/mL (239-931)
== END ==
PROVIDERS: Family Provider Family Medicine; PCP Family Medicine; Referring Provider Family Medicine; Visit Provider Family Medicine
DX: G43.909 Migraine, unspecified, not intractable, without status migrainosus (principal); R51.9 Headache, unspecified; R41.3 Other amnesia
CPT/HCPCS: 36415; 80053; 82607; 84443

== ENCOUNTER → 2022-11-03 08:36 | Outpatient (CLI) | payer OTHER, SELFPAY ==
--- NOTE | 2022-11-03 08:38 | DI.MRI.S_ITS ---
PROCEDURE: MR HEAD/BRAIN WO CON INDICATIONS: chronic headache and memory loss TECHNIQUE: Noncontrast axial T1 spin echo, axial T2 fast spin echo, sagittal and axial FLAIR, coronal T2 fast spin echo, axial gradient echo, axial diffusion and ADC through the brain. COMPARISON: None. FINDINGS: Image quality: Excellent. CSF Spaces: Basal cisterns are patent. No extra-axial fluid collections. Ventricles are normal in size and shape. Brain: No intracranial masses or hemorrhage. Garcia/white matter interface is normal. Brainstem appears normal. Diffusion-weighted sequence is unremarkable without evidence of acute infarct. Normal intravascular flow voids are present. Skull and face: Calvarium has normal marrow signal. Orbits appear normal. Sinuses: Sinuses and mastoids are clear. IMPRESSION: Normal MRI brain Approved by: Manny Crisostomo M.D. on 11/03/2022 at 14:58
== END ==
PROVIDERS: Family Provider Family Medicine; PCP Family Medicine; Referring Provider Family Medicine; Visit Provider Family Medicine
DX: G43.909 Migraine, unspecified, not intractable, without status migrainosus (principal); R41.3 Other amnesia
CPT/HCPCS: 70551

== ENCOUNTER 2023-01-08 21:33 | Emergency (ER) | payer OTHER, SELFPAY ==
[2023-01-08 21:43] VITALS: BP 156/92; PULSE 113; RESP 18; TEMP 37.1; O2SAT 100; BMI 26.9
--- NOTE | 2023-01-08 21:50 | DI.CT.S_ITS ---
PROCEDURE: CT KIDNEY URETER BLADDER (KUB) INDICATIONS: flank pain, hx stones TECHNIQUE: Axial sections were acquired from the lung bases to the pubic symphysis. Coronal and sagittal reformats were performed. For radiation dose reduction, the following was used: automated exposure control, adjustment of mA and/or kV according to patient size. COMPARISON: [facility], CT, CT KIDNEY URETER BLADDER (KUB), 12/22/2019, 16:27. FINDINGS: Image quality: Excellent. Lung bases: There is minimal atelectasis. Heart: Heart is normal in size. URINARY: Right Kidney and Ureter: There is a 0.2 cm nonobstructing stone within the inferior pole of the right kidney. No hydronephrosis. No hydroureter. Left Kidney and Ureter: No stones or hydronephrosis. No hydroureter. Bladder: The urinary bladder is partially distended. No stones. ABDOMEN: Liver: Noncontrast evaluation of the liver demonstrates no discrete mass. Gallbladder: Within normal limits without calcified gallstones. Biliary ducts: No biliary ductal dilatation. Pancreas: Unremarkable. Spleen: Normal in size. Adrenal Glands: No adrenal nodules. Stomach and Bowel: Stomach, small bowel loops, and colon are normal in caliber and wall thickness. The appendix is normal. There is colonic diverticulosis without acute diverticulitis. Peritoneum: No abnormal intraperitoneal fluid. No free air. Ventral Wall: No hernia. Abdominal Nodes: No retroperitoneal or mesenteric adenopathy by size criteria. Vessels: Aorta and inferior vena cava are normal in size. PELVIS: Pelvic Organs: Unremarkable. Pelvic Nodes: No enlarged lymph nodes. Miscellaneous: No inguinal hernias identified. Bones: Visualized osseous structures demonstrate no suspicious focal lesions. IMPRESSION: 1. Small nonobstructing right renal stone. No hydronephrosis. 2. Colonic diverticulosis without acute diverticulitis. Dictated by: Holger Gramajo M.D. on 01/08/2023 at 22:59 Approved by: Holger Gramajo M.D. on 01/08/2023 at 23:02
--- NOTE | 2023-01-08 21:59 | ED_ITS ---
HPI - Male Genitourinary General Chief complaint: Urogenital-Male Stated complaint: Kidney stone Time Seen by Provider: 01/08/23 21:38 Source: patient Mode of arrival: Ambulatory History of Present Illness HPI Narrative: 42-year-old male daily smoker with history of kidney stones presents with a chief complaint of severe flank pain that was relatively sudden in onset a few days ago and very reminiscent of prior kidney stones. He states there is no obvious provocation or palliation. He initially was having pain on his left side with radiation down into his groin but he thinks he cleared this stone and now he is having some discomfort in the right side. His pain is sufficient to make him nauseated but denies any vomiting. He is had no fever or chills. Denies any trauma or injury. Related Data Home Medications Medication Instructions Recorded Confirmed Resmed Airsense 10 CPAP #1 ea 10/02/18 10/24/22 potassium citrate 15 mEq (1,620 15 meq PO BID 03/09/20 10/24/22 mg) tablet,extended release pantoprazole 40 mg tablet,delayed 40 mg PO DAILY 02/22/21 10/24/22 release (Protonix) promethazine 25 mg tablet 25 mg PO 10/24/22 10/24/22 Previous Rx's Medication Instructions Recorded tamsulosin 0.4 mg capsule 0.4 mg PO BEDTIME #90 caps 03/09/20 cyclobenzaprine 10 mg tablet 10 mg PO TID PRN muscle spasm #90 06/21/22 tabs rizatriptan 5 mg disintegrating See Rx Instructions PO .COMPLEX 06/21/22 tablet #60 tabs naproxen 500 mg tablet 500 mg PO BID #30 tabs 07/13/22 hydrocodone 5 mg-acetaminophen 325 1 tab PO Q4-6H PRN pain #10 tabs 01/08/23 mg tablet ondansetron 4 mg disintegrating 4 mg PO TID-QID PRN nausea and 01/08/23 tablet vomiting #10 tabs Allergies Allergy/AdvReac Type Severity Reaction Status Date / Time Iodinated Contrast Media Allergy Severe ANAPHALAXIS Verified 01/08/23 21:43 [IODINATED CONTRAST- ORAL AND IV DYE] meloxicam [MELOXICAM] Allergy Intermediate RASH Verified 01/08/23 21:43 Review of Systems Review of Systems Narrative: GENERAL: Denies chills, fatigue, malaise, fever, sweats. HEENT: Denies sinus pain, ear pain, sore throat, difficulty swallowing, dizziness. RESPIRATORY: Denies dyspnea, cough, wheezing, hemoptysis, sputum. CARDIOVASCULAR: Denies chest pain, palpitations, orthopnea, edema, GASTROINTESTINAL: Denies nausea, vomiting, abdominal pain, diarrhea, constipation, melena. : See HPI MUSCULOSKELETAL: denies weakness, joint pain, or bony pain SKIN: Denies rash, skin lesions, or other NEUROLOGIC: Denies weakness, headache, numbness, change in speech, confusion, seizures, incoordination. PSYCHIATRIC: No concerning psychosocial issues. 12 point review of systems is negative except for those stated above Patient History Medical History Acne BPH w urinary obs/LUTS Chronic back pain (~1998) Fecal incontinence (~2014) GERD (gastroesophageal reflux disease) (~2017) Gout (~2009) Headache (~2006) Hearing loss (~2011) History of nephrolithiasis History of urinary incontinence (~2009) Irritable bowel syndrome (~2014) Kidney stone (~2000) Migraine (~2009) PTSD (post-traumatic stress disorder) (~2011) Rosacea Shoulder pain Sleep apnea (~2017) Tinnitus (~2016) Trigger finger (~2019) Vertigo (~2017) Vision disorder Surgical History Anesthesia History of nephrolithotomy with removal of calculi History of tonsillectomy (~2014) Family History Sister Migraines CVA (cerebral vascular accident) History of heart disease Mother Mental health problem Social History marital status: number of children: 2 Smoking Status: Current every day smoker Tobacco: How many years used: 6 Smokeless tobacco user: other Smoking Status: Current every day smoker tobacco type: vaping alcohol intake frequency: 0-2 drinks per day Substance Use Type: does not use Exam Narrative Exam Narrative: GENERAL: [42] year old patient appears stated age. Well-developed patient, in obvious distress, tearful, obvious significant pain HEAD: Atraumatic. Normocephalic. EYES: Pupils equal round and reactive. Extraocular motions intact. No scleral icterus. No injection or drainage. ENT: Nose without bleeding, purulent drainage. Throat without erythema, tonsillar hypertrophy or exudate. Airway patent. NECK: Trachea midline. Non tender CARDIOVASCULAR: Regular rate and rhythm without murmurs, gallops, or rubs. RESPIRATORY: Clear to auscultation. Breath sounds equal bilaterally. No wheezes, rales, or rhonchi. GASTROINTESTINAL: Abdomen soft, non-tender, nondistended. EXTREMITIES: No edema or joint tenderness. BACK: Nontender without deformity or crepitance. No flank tenderness. NEURO: AOx3. SKIN: No rash or erythema of visible areas Initial Vital Signs Initial Vital Signs: Vital Signs Temperature 98.7 F 01/08/23 21:43 Pulse Rate 113 H 01/08/23 21:43 Respiratory Rate 18 01/08/23 21:43 Blood Pressure 156/92 H 01/08/23 21:43 Pulse Oximetry 100 01/08/23 21:43 Oxygen Delivery Method Room Air 01/08/23 21:43 Course Orders Ordered: ED Orders 01/08/23 21:50 CT kidney ureter bladder (KUB) Stat 01/08/23 22:00 BMP [Basic Metabolic Panel] Stat CBC Auto Diff [Complete Blood Count AUTO DIFF] Stat 01/08/23 22:13 Urine Culture Stat Discontinued Medications Hydrocodone Bitart/Acetaminophen (Hydrocodone/Acet 5/325 Prepack) 1 bottle MISC SEEINSTR ONE Stop: 01/08/23 23:31 Last Admin: 01/08/23 23:39 Dose: 1 bottle Documented By: STEVENSON Hydromorphone HCl (Hydromorphone 0.5 Mg Inj) 0.5 mg IV NOW ONE Stop: 01/08/23 21:52 Last Admin: 01/08/23 22:02 Dose: 0.5 mg Documented By: NATASHA Lidocaine HCl 6 ml/ Sodium (Chloride) 56 mls @ 336 mls/hr IV NOW ONE Stop: 01/08/23 21:51 Last Infusion: 01/08/23 23:12 Dose: 0 mls/hr Documented By: Admin: 01/08/23 22:27 Dose: 336 mls/hr Documented By: ROBERT Ondansetron HCl (Ondansetron 4 Mg/2 Ml Inj) 4 mg IV NOW ONE Stop: 01/08/23 21:51 Last Admin: 01/08/23 22:02 Dose: 4 mg Documented By: NATASHA Ondansetron HCl (Ondansetron 4 Mg Odt Prepack) 1 bottle MISC SEEINSTR ONE Stop: 01/08/23 23:31 Last Admin: 01/08/23 23:39 Dose: 1 bottle Documented By: STEVENSON Reevaluation(s) Reevaluation #1: Significant improvement in symptoms after above-stated therapies Vital Signs Vital signs: Vital Signs - 8 hr 01/08/23 21:43 01/08/23 23:44 Temperature 98.7 F Pulse Rate 113 H 88 Respiratory Rate 18 18 Blood Pressure 156/92 H 134/81 Pulse Oximetry 100 99 Oxygen Delivery Method Room Air Room Air MDM - Male Genitourinary Lab Data 01/08/23 22:00 01/08/23 22:00 Labs: Lab Results 01/08/23 01/08/23 Range/Units 22:00 22:00 WBC 7.5 (4.5-11.0) X10^3/uL RBC 4.87 (4.5-5.9) X10^6/uL Hgb 15.9 (13.5-17.5) g/dL Hct 46.4 (41-53) % MCV 95.3 (80-100) fL MCH 32.7 (26-34) PG MCHC 34.3 (30-36) % RDW 13.0 (11.6-14.8) % Plt Count 257 (150-400) X10^3/uL Neut % (Auto) 56.3 (50-75) % Lymph % (Auto) 35.8 (25-40) % [place] % (Auto) 6.4 (3-14) % Eos % (Auto) 0.8 L (2-4) % Baso % (Auto) 0.7 (0-2) % Neut # (Auto) 4200 (1661-6681) /uL Lymph # (Auto) 2700 (4685-9753) /uL [place] # (Auto) 500 (0-900) /uL Eos # (Auto) 100 (0-450) /uL Baso # (Auto) 100 (0-100) /uL Sodium 140 (137-145) mmol/L Potassium 3.6 (3.4-5.1) mmol/L Chloride 104 (98-107) mmol/L Carbon Dioxide 25 (22-32) mmol/L BUN 8 L (9-20) mg/dL Creatinine 0.81 (0.66-1.25) mg/dL Estimated GFR > 60 (>60) mL/min BUN/Creatinine Ratio 9.9 (6-22) Glucose 126 H (70-100) mg/dL Calcium 9.0 (8.4-10.2) mg/dL Urine Dip Bedside Urine Glucose Negative Bedside Urine Bilirubin - Negative Bedside Urine Ketone - Negative Urine Specific [place] 1.015 Bedside Urine Occult Blood - Negative Bedside Urine pH 7.0 Bedside Urine Protein - Negative Bedside Urine Urobilinogen +/- 1mg Bedside Urine Nitrite - Negative Bedside Urine Leukocytes - Negative Esterase MDM Narrative Medical decision making narrative: [42] year old patient presents with severe flank pain Multiple etiologies for patient's symptoms considered including, but not limited to: [Kidney stone versus other colic versus bowel obstruction versus UTI versus other] Prior Charts reviewed in our EMR Primary Historian: patient Labs reviewed and interpreted by myself: No signs of sepsis or renal failure, urine without signs of infection Imaging reviewed: Nonobstructing right-sided stone Patient's symptoms improved over duration of stay with above-stated therapies. Multiple diagnoses considered as noted above, he passed a stone while here, apparently prior to imaging and caught it in a strainer. No signs of sepsis or renal failure, patient has pain well controlled, tolerating orals. He has follow-up already secured Findings and discharge diagnosis discussed with patient/family followed by verbalization of understanding Return precautions discussed with patient/family whom verbalize understanding of diagnosis and plan Discharge Plan Departure Patient Disposition: Home Clinical Impression: Kidney stone Instructions: DI for Kidney Stones Activity Restrictions/Additional Instructions: *You have been diagnosed with [nonobstructing kidney stone] *What to do: *Please continue to take your regular medications as directed. [x ] New medication prescriptions sent to your pharmacy: [facility] [ ] New medication written as a paper prescription [ ] No new medications given *Please follow up with your primary care provider today at 2pm as planned. Let them know you were seen in the Emergency Department and that we ask that you be seen in follow up. We will electronically transmit a record of today's note if your PCP is in our system *Return to Emergency Department if you should have any new, worsening or concerning symptoms, such as [fever greater than 101 F, shaking chills, worsening pain, persistent vomiting or other bothersome symptoms] Prescriptions: New hydrocodone-acetaminophen 5-325 mg tablet 1 tab PO Q4-6H PRN (Reason: pain) Qty: 10 0RF ondansetron 4 mg tablet,disintegrating 4 mg PO TID-QID PRN (Reason: nausea and vomiting) Qty: 10 0RF No Action pantoprazole [Protonix] 40 mg tablet,delayed release (DR/EC) 40 mg PO DAILY cyclobenzaprine 10 mg tablet 10 mg PO TID PRN (Reason: muscle spasm) Qty: 90 0RF Rx Instructions: may make drowsy do not drive during therapy rizatriptan 5 mg tablet,disintegrating See Rx Instructions PO .COMPLEX Qty: 60 0RF Rx Instructions: take 1 tablet at onset of headache; if no relief, may repeat 1 tablet after at least 2 hrs PO naproxen 500 mg tablet 500 mg PO BID Qty: 30 0RF Rx Instructions: take one tablet twice daily with food promethazine 25 mg tablet 25 mg PO Patient Comments: take 1 tablet by mouth every 6 hours if needed for nausea and vomiting (DME) Resmed Airsense 10 CPAP Qty: 1 Dose Instruction: As directed Patient Comments: Pressure: 6-16 cmH2O DME: [facility] Rx Instructions: As directed potassium citrate 15 mEq tablet extended release 15 meq PO BID tamsulosin 0.4 mg capsule 0.4 mg PO BEDTIME Qty: 90 3RF Referrals: Aravind Mederos MD [Primary Care Provider] - Chemo Barth MD [Physician] - Stand Alone Forms: Patient Portal/API
[2023-01-08] MEDS: HYDROMORPHONE 0.5 MG INJ IV (22:02)
[2023-01-08] MEDS: ONDANSETRON 4 MG/2 ML INJ IV (22:02)
[2023-01-08 22:17] LABS: Add Manual Diff / Slide Review NO; Basophils Absolute Auto 100 /uL (0-100); Basophils Percent Auto 0.7 % (0-2); Eosinophils Absolute Auto 100 /uL (0-450); Eosinophils Percent Auto 0.8 % (2-4); Hematocrit 46.4 % (41-53); Hemoglobin 15.9 g/dL (13.5-17.5); Lymphocytes Absolute Auto 2700 /uL (1100-4500); Lymphocytes Percent Auto 35.8 % (25-40); Mean Corpuscular HGB Conc 34.3 % (30-36); Mean Corpuscular Hemoglobin 32.7 PG (26-34); Mean Corpuscular Volume 95.3 fL (80-100); Monocytes Absolute Auto 500 /uL (0-900); Monocytes Percent Auto 6.4 % (3-14); Neutrophils Absolute Auto 4200 /uL (1500-7000); Neutrophils Percent Auto 56.3 % (50-75); Platelet Count 257 X10^3/uL (150-400); Red Blood Cell Count 4.87 X10^6/uL (4.5-5.9); White Blood Cell Count 7.5 X10^3/uL (4.5-11.0)
[2023-01-08 22:21] LABS: BUN Creatinine Ratio 9.9 (6-22); Blood Urea Nitrogen 8 mg/dL (9-20); Carbon Dioxide 25 mmol/L (22-32); Chloride 104 mmol/L (98-107); Estimated Glomerular Filt Rate > 60 mL/min (>60); Glucose 126 mg/dL (70-100); HEMOLYSIS 30 (0-50); Potassium 3.6 mmol/L (3.4-5.1); Sodium 140 mmol/L (137-145)
[2023-01-08] MEDS: LIDOCAINE 2% (PF) 6 ML in SODIUM CHLORIDE 0.9% 50 ML 336 ML IV (22:27)
--- NOTE | 2023-01-08 22:28 | PC.NURSE ---
Lidocaine did not allow me to take 2 vials to complete the ordered 6ml dose; tried to return and withdraw another vial; ended up drawing out 2 vials total on override.
--- NOTE | 2023-01-08 23:16 | PC.NURSE ---
Patient had barely visible stone present in urine strainer. When attempting to collect it by this RN lost visual on it and was unable to get it into specimen cup.
[2023-01-08] MEDS: HYDROCODONE/ACET 5/325 PREPACK 1 BOTTLE MISC (23:39)
[2023-01-08] MEDS: ONDANSETRON 4 MG ODT PREPACK 1 BOTTLE MISC (23:39)
[2023-01-08 23:44] VITALS: BP 134/81; PULSE 88; RESP 18; O2SAT 99
== END 2023-01-08 23:46 | disposition home or self-care (01) ==
PROVIDERS: Emergency Provider Emergency Medicine; Family Provider Family Medicine; PCP Family Medicine
DX: R10.9 Unspecified abdominal pain (principal); Z87.442 Personal history of urinary calculi
CPT/HCPCS: 36415; 74176; 80048; 81003; 85025; 87086; 96365; 96375; 99284; J1170; J2405

== ENCOUNTER 2023-01-25 11:11 | Emergency (ER) | payer OTHER, SELFPAY ==
[2023-01-25 11:15] VITALS: BP 159/96; PULSE 95; RESP 18; TEMP 36.8; O2SAT 100; BMI 28.1
--- NOTE | 2023-01-25 11:32 | DI.CT.S_ITS ---
PROCEDURE: CT ABDOMEN PELVIS WO CON INDICATIONS: LLQ PAIN, RECENT HX STONE TECHNIQUE: Axial sections were acquired from the lung bases to the pubic symphysis. Coronal and sagittal reformats were performed. For radiation dose reduction, the following was used: automated exposure control, adjustment of mA and/or kV according to patient size. COMPARISON: [facility], CT, CT KIDNEY URETER BLADDER (KUB), 12/22/2019, 16:27. [facility], CT, CT KIDNEY URETER BLADDER (KUB), 01/08/2023, 21:53. FINDINGS: Image quality: Excellent. Lung bases: Unremarkable. Tiny hiatal hernia. Heart: No significant findings. URINARY: Right Kidney: There is a 1 mm stone in the inferior pole of the right kidney. No hydronephrosis. Right Ureter: No hydroureter. Left Kidney: No stones or hydronephrosis. Left Ureter: No hydroureter. Bladder: Normal wall thickness. No stones. ABDOMEN: Liver: Unremarkable. Gallbladder: Unremarkable. Biliary ducts: Unremarkable. Pancreas: Unremarkable. Spleen: Unremarkable. Adrenal Glands: Unremarkable. Stomach and Bowel: Stomach, small bowel loops, and colon are normal in caliber. Scattered colonic diverticula. No diverticulitis. There is a large amount of stool in colon. Peritoneum: No abnormal intraperitoneal fluid. No free air. Ventral Wall: No hernia. Abdominal Nodes: No enlarged retroperitoneal or mesenteric lymph nodes. There are multiple small subcentimeter mesenteric lymph nodes in the left upper quadrant, nonspecific. Vessels: Aorta and inferior vena cava are normal in size. PELVIS: Pelvic Organs: Unremarkable. Pelvic Nodes: Unremarkable. Miscellaneous: No inguinal hernias are seen. Bones: Unremarkable. IMPRESSION: 1. There is a 1 mm nonobstructive stone in the inferior pole right kidney. No hydronephrosis. 2. Diverticulosis without diverticulitis. 3. A large amount of stool in colon. Dictated by: Elizabeth Potter M.D. on 01/25/2023 at 12:06 Approved by: Elizabeth Potter M.D. on 01/25/2023 at 12:16
--- NOTE | 2023-01-25 11:34 | ED.MALEGU ---
HPI - Male Genitourinary General Chief complaint: Urogenital-Male Stated complaint: kidneystone pains, here T-15 Time Seen by Provider: 01/25/23 11:19 Source: patient Mode of arrival: Ambulatory History of Present Illness HPI Narrative: 42-year-old male presents by private vehicle from home for left-sided flank pain. Patient states that approximately 2 weeks ago he was diagnosed with a kidney stone and discharged with Flomax and pain medications. States that he has had continued pain that is not controlled by the home pain medications. He was supposed to have a follow up appointment with Urology today, however they stated that the patient has reported amount of pain was not explained by the stone he was diagnosed with and referred him to the emergency department in moved his appointment until next month. Patient reports left lower quadrant abdominal pain and flank pain. Denies hematuria, dysuria, other complaints at this time. Related Data Home Medications Medication Instructions Recorded Confirmed Resmed Airsense 10 CPAP #1 ea 10/02/18 01/23/23 potassium citrate 15 mEq (1,620 15 meq PO BID 03/09/20 01/23/23 mg) tablet,extended release pantoprazole 40 mg tablet,delayed 40 mg PO DAILY 02/22/21 01/23/23 release (Protonix) promethazine 25 mg tablet 25 mg PO 10/24/22 01/23/23 Previous Rx's Medication Instructions Recorded cyclobenzaprine 10 mg tablet 10 mg PO TID PRN muscle spasm #90 06/21/22 tabs rizatriptan 5 mg disintegrating See Rx Instructions PO .COMPLEX 06/21/22 tablet #60 tabs naproxen 500 mg tablet 500 mg PO BID #30 tabs 07/13/22 ondansetron 4 mg disintegrating 4 mg PO TID-QID PRN nausea and 01/08/23 tablet vomiting #10 tabs tamsulosin 0.4 mg capsule 0.4 mg PO BEDTIME #30 caps 01/09/23 hydrocodone 5 mg-acetaminophen 325 1 tab PO Q4-6H PRN pain #30 tabs 01/23/23 mg tablet Allergies Allergy/AdvReac Type Severity Reaction Status Date / Time Iodinated Contrast Media Allergy Severe ANAPHALAXIS Verified 01/25/23 11:33 [IODINATED CONTRAST- ORAL AND IV DYE] meloxicam [MELOXICAM] Allergy Intermediate RASH Verified 01/25/23 11:33 Review of Systems Review of Systems Narrative: CONSTITUTIONAL- Denies: fever, chills, fatigue HEENT- Denies: sore throat, nosebleed, vision changes RESPIRATORY- Denies: shortness of breath, cough, wheezing CARDIAC- Denies: chest pain, edema, orthopnea GI-reports: Left lower quadrant abdominal pain Denies: nausea, vomiting, constipation, diarrhea -reports: Flank pain Denies: frequency, dysuria, hematuria MSK- Denies: extremity pain, extremity swelling, joint pain, joint swelling SKIN- Denies: rash, itching, burn, swelling NEUROLOGICAL- Denies: headache, numbness, weakness, dizziness PSYCHIATRIC- Denies: anxiety, depression, suicidal ideation, homicidal ideation Patient History Medical History Acne BPH w urinary obs/LUTS Chronic back pain (~1998) Fecal incontinence (~2014) GERD (gastroesophageal reflux disease) (~2017) Gout (~2009) Headache (~2006) Hearing loss (~2011) History of nephrolithiasis History of urinary incontinence (~2009) Irritable bowel syndrome (~2014) Kidney stone (~2000) Migraine (~2009) PTSD (post-traumatic stress disorder) (~2011) Rosacea Shoulder pain Sleep apnea (~2017) Tinnitus (~2016) Trigger finger (~2019) Vertigo (~2017) Vision disorder Surgical History Anesthesia History of nephrolithotomy with removal of calculi History of tonsillectomy (~2014) Family History Sister Migraines CVA (cerebral vascular accident) History of heart disease Mother Mental health problem Social History marital status: number of children: 2 Smoking Status: Current every day smoker Tobacco: How many years used: 6 Smokeless tobacco user: other Smoking Status: Current every day smoker tobacco type: vaping alcohol intake frequency: 0-2 drinks per day Substance Use Type: does not use Exam Initial Vital Signs Initial Vital Signs: Vital Signs Temperature 98.3 F 01/25/23 11:15 Pulse Rate 95 H 01/25/23 11:15 Respiratory Rate 18 01/25/23 11:15 Blood Pressure 159/96 H 01/25/23 11:15 Pulse Oximetry 100 01/25/23 11:15 Oxygen Delivery Method Room Air 01/25/23 11:15 Const: Awake, alert, no acute distress, nontoxic appearing Eyes: PERRL, EOMI, conjunctiva normal ENT: Atraumatic, dentition normal, mucous membranes moist Cardiac: regular rate, regular rhythm RESP: unlabored, clear bilaterally, no wheezing GI: Atraumatic, soft, left lower quadrant tenderness to deep palpation without rebound or guarding MSK: Atraumatic, full range of motion, pulses equal Skin: Warm, Dry, intact, no rashes Neuro: AO x3, CN II-XII grossly intact, moves all extremities Psych: affect normal, mood normal, not suicidal, not homicidal Course Orders Ordered: ED Orders 01/25/23 11:25 UA Complete [Urinalysis and Microscopic] Stat 01/25/23 11:32 CT abdomen pelvis wo con Stat 01/25/23 11:45 CBC Auto Diff [Complete Blood Count AUTO DIFF] Stat CMP [Comprehensive Metabolic Panel] Stat Discontinued Medications Sodium Chloride (Normal Saline 0.9%) 1,000 mls @ 1,000 mls/hr IV BOLUS ONE Stop: 01/25/23 12:31 Last Infusion: 01/25/23 12:42 Dose: 0 mls/hr Documented By: AMMakayla Admin: 01/25/23 11:50 Dose: 1,000 mls/hr Documented By: AMV Ketorolac Tromethamine (Ketorolac 30 Mg/Ml Vial) 15 mg IV NOW ONE Stop: 01/25/23 11:33 Last Admin: 01/25/23 11:49 Dose: 15 mg Documented By: AMV Reevaluation(s) Reevaluation #1: Well-appearing patient with flank pain, known history of recent kidney stone. Since this is 2 weeks post initial diagnosis we will repeat CT scan to assess for any other causes of patient's reported pain. We will give Toradol and IV fluids. Reevaluation #2: Laboratory work is unremarkable. Imaging shows constipation, however no acute findings to suggest emergent cause of patient's pain. Was counseled of all results at bedside. Recommended that patient follow up with urology as previously scheduled and recommended calling his primary care physician for follow up. Recommended daily laxatives for constipation. Vital Signs Vital signs: Vital Signs - 8 hr 01/25/23 11:15 01/25/23 12:43 Temperature 98.3 F Pulse Rate 95 H 88 Respiratory Rate 18 16 Blood Pressure 159/96 H 132/86 Pulse Oximetry 100 100 Oxygen Delivery Method Room Air Room Air MDM - Male Genitourinary Lab Data 01/25/23 11:45 01/25/23 11:45 Labs: Lab Results 01/25/23 01/25/23 01/25/23 Range/Units 11:25 11:45 11:45 WBC 5.4 (4.5-11.0) X10^3/uL RBC 4.56 (4.5-5.9) X10^6/uL Hgb 15.0 (13.5-17.5) g/dL Hct 42.8 (41-53) % MCV 94.0 (80-100) fL MCH 32.9 (26-34) PG MCHC 35.0 (30-36) % RDW 12.8 (11.6-14.8) % Plt Count 213 (150-400) X10^3/uL Neut % (Auto) 64.5 (50-75) % Lymph % (Auto) 27.4 (25-40) % [place] % (Auto) 7.0 (3-14) % Eos % (Auto) 0.4 L (2-4) % Baso % (Auto) 0.7 (0-2) % Neut # (Auto) 3500 (0401-5142) /uL Lymph # (Auto) 1500 (9517-2751) /uL [place] # (Auto) 400 (0-900) /uL Eos # (Auto) 0 (0-450) /uL Baso # (Auto) 0 (0-100) /uL Sodium 137 (137-145) mmol/L Potassium 4.1 (3.4-5.1) mmol/L Chloride 103 (98-107) mmol/L Carbon Dioxide 25 (22-32) mmol/L BUN 11 (9-20) mg/dL Creatinine 0.79 (0.66-1.25) mg/dL Estimated GFR > 60 (>60) mL/min BUN/Creatinine Ratio 13.9 (6-22) Glucose 97 (70-100) mg/dL Calcium 9.3 (8.4-10.2) mg/dL Total Bilirubin 0.9 (0.2-1.3) mg/dL AST 42 (17-59) IU/L ALT 43 (<50) IU/L Alkaline Phosphatase 67 (38-126) U/L Total Protein 7.4 (6.3-8.2) g/dL Albumin 4.6 (3.5-5.0) g/dL Globulin 2.8 (1.7-4.1) g/dL Albumin/Globulin Ratio 1.6 (1.0-2.8) Urine Color Yellow Urine Appearance Clear Urine pH 7.0 (4.5-8.0) Ur Specific [place] <=1.005 (1.000-1.035) Urine Protein Negative (Negative) Urine Glucose (UA) Negative (Negative) g/dL Urine Ketones Negative (NEGATIVE) Urine Occult Blood Negative (Negative) Urine Nitrate Negative (Negative) Urine Bilirubin Negative (NEGATIVE) Urine Urobilinogen 0.2 (0.2) E.U./dL Ur Leukocyte Esterase Negative (NEGATIVE) Urine RBC None seen (0-5/HPF) Urine WBC None seen (0-5/HPF) Ur Squamous Epith Cells None seen (0-5/HPF) Urine Bacteria None seen (None) Ur Culture Indicated? Cult not indicated Discharge Plan Departure Patient Disposition: Home Clinical Impression: Abdominal pain, Constipation Instructions: Constipation, DI for Abdominal Pain-Adult Prescriptions: No Action pantoprazole [Protonix] 40 mg tablet,delayed release (DR/EC) 40 mg PO DAILY cyclobenzaprine 10 mg tablet 10 mg PO TID PRN (Reason: muscle spasm) Qty: 90 0RF Rx Instructions: may make drowsy do not drive during therapy rizatriptan 5 mg tablet,disintegrating See Rx Instructions PO .COMPLEX Qty: 60 0RF Rx Instructions: take 1 tablet at onset of headache; if no relief, may repeat 1 tablet after at least 2 hrs PO hydrocodone-acetaminophen 5-325 mg tablet 1 tab PO Q4-6H PRN (Reason: pain) Qty: 30 0RF naproxen 500 mg tablet 500 mg PO BID Qty: 30 0RF Rx Instructions: take one tablet twice daily with food promethazine 25 mg tablet 25 mg PO Patient Comments: take 1 tablet by mouth every 6 hours if needed for nausea and vomiting tamsulosin 0.4 mg capsule 0.4 mg PO BEDTIME Qty: 30 5RF ondansetron 4 mg tablet,disintegrating 4 mg PO TID-QID PRN (Reason: nausea and vomiting) Qty: 10 0RF (DME) Resmed Airsense 10 CPAP Qty: 1 Dose Instruction: As directed Patient Comments: Pressure: 6-16 cmH2O DME: [facility] Rx Instructions: As directed potassium citrate 15 mEq tablet extended release 15 meq PO BID Referrals: Aravind Mederos MD [Primary Care Provider] - Stand Alone Forms: Patient Portal/API
[2023-01-25] MEDS: KETOROLAC 30 MG/ML VIAL 15 MG IV (11:49)
[2023-01-25] MEDS: SODIUM CHLORIDE 0.9% 1,000 ML 1000 ML IV (11:50)
[2023-01-25 11:53] LABS: Add Manual Diff / Slide Review NO; Basophils Absolute Auto 0 /uL (0-100); Basophils Percent Auto 0.7 % (0-2); Eosinophils Absolute Auto 0 /uL (0-450); Eosinophils Percent Auto 0.4 % (2-4); Hematocrit 42.8 % (41-53); Lymphocytes Absolute Auto 1500 /uL (1100-4500); Lymphocytes Percent Auto 27.4 % (25-40); Mean Corpuscular Hemoglobin 32.9 PG (26-34); Monocytes Absolute Auto 400 /uL (0-900); Neutrophils Absolute Auto 3500 /uL (1500-7000); Neutrophils Percent Auto 64.5 % (50-75); Platelet Count 213 X10^3/uL (150-400); Red Blood Cell Count 4.56 X10^6/uL (4.5-5.9); Red Cell Distribution Width 12.8 % (11.6-14.8); White Blood Cell Count 5.4 X10^3/uL (4.5-11.0)
[2023-01-25 11:59] LABS: Appearance Urine UA CLEAR; Bilirubin Urine UA NEGATIVE (NEGATIVE); Color Urine UA YELLOW; Glucose Urine UA NEGATIVE (Negative); Ketones Urine UA NEGATIVE (NEGATIVE); Leukocyte Esterase Urine UA NEGATIVE (NEGATIVE); Nitrite Urine UA NEGATIVE (Negative); Occult Blood Urine UA NEGATIVE (Negative); Protein Urine UA NEGATIVE (Negative); Specific Gravity Urine UA <=1.005 (1.000-1.035); Urobilinogen Urine UA 0.2 E.U./dL (0.2)
[2023-01-25 12:00] LABS: Alanine Aminotransferase 43 IU/L (<50); Albumin 4.6 g/dL (3.5-5.0); Albumin Globulin Ratio 1.6 (1.0-2.8); Alkaline Phosphatase 67 U/L (38-126); Aspartate Aminotransferase 42 IU/L (17-59); BUN Creatinine Ratio 13.9 (6-22); Bilirubin Total 0.9 mg/dL (0.2-1.3); Blood Urea Nitrogen 11 mg/dL (9-20); Calcium 9.3 mg/dL (8.4-10.2); Carbon Dioxide 25 mmol/L (22-32); Chloride 103 mmol/L (98-107); Estimated Glomerular Filt Rate > 60 mL/min (>60); Globulin 2.8 g/dL (1.7-4.1); Glucose 97 mg/dL (70-100); HEMOLYSIS 15 (0-50); Potassium 4.1 mmol/L (3.4-5.1); Sodium 137 mmol/L (137-145); Total Protein 7.4 g/dL (6.3-8.2)
[2023-01-25 12:17] LABS: Bacteria Urine None Seen; Culture Indicated Urine Cult Not Indicated; RBC Urine None Seen (0-5/HPF); Squamous Epithelial Cell Urine None Seen (0-5/HPF); WBC Urine None Seen (0-5/HPF)
[2023-01-25 12:43] VITALS: BP 132/86; PULSE 88; RESP 16; O2SAT 100
== END 2023-01-25 12:44 | disposition home or self-care (01) ==
PROVIDERS: Emergency Provider Emergency Medicine; Family Provider Family Medicine; PCP Family Medicine
DX: R10.32 Left lower quadrant pain (principal); K59.00 Constipation, unspecified
CPT/HCPCS: 36415; 74176; 80053; 81001; 85025; 96361; 96374; 99284; J1885

== ENCOUNTER → 2023-02-22 07:19 | Outpatient (CLI) | payer OTHER, SELFPAY ==
--- NOTE | 2023-02-22 07:22 | DI.RAD.S_ITS ---
PROCEDURE: XR KUB INDICATIONS: urinary calculi TECHNIQUE: One view of the abdomen acquired. COMPARISON: Merged With [facility], CT, CT KIDNEY URETER BLADDER (KUB), 01/08/2023, 21:53. Merged With [facility], CT, CT ABDOMEN PELVIS WO CON, 01/25/2023, 11:37. Merged With [facility], CR, XR KUB, 04/15/2020, 9:02. FINDINGS: Surgical changes and devices: None. Bowel: Bowel gas pattern is normal. Soft tissues: No suspicious abdominal calcifications. The 1 mm stone in the inferior pole of the right kidney seen on CT is not visualized. Visualized solid organ contours appear normal in size. Bones: No suspicious bony lesions. IMPRESSION: No definitive urinary calculi on radiograph. The 1 mm stone in the inferior pole of the right kidney seen on the prior comparison CT is not visualized. Dictated by: Elizabeth Potter M.D. on 02/22/2023 at 10:16 Approved by: Elizabeth Potter M.D. on 02/22/2023 at 10:17
== END ==
PROVIDERS: Family Provider Family Medicine; PCP Family Medicine; Referring Provider Specialist; Visit Provider Specialist
DX: N40.1 Benign prostatic hyperplasia with lower urinary tract symptoms (principal); N20.0 Calculus of kidney; N13.8 Other obstructive and reflux uropathy; Z87.442 Personal history of urinary calculi
CPT/HCPCS: 74018; 99215

== ENCOUNTER 2023-07-19 08:17 | Outpatient (CLI) | payer OTHER, SELFPAY ==
[2023-07-19] VITALS (11 sets, daily range): BP systolic 109–151; BP diastolic 61–99; PULSE 69–80; RESP 16–20; TEMP 36.4; O2SAT 96–100
[2023-07-19] MEDS: MIDAZOLAM 2 MG/2 ML VIAL IV (08:58)
[2023-07-19] MEDS: iopamidoL 15 ML VIAL 3 ML INJ (09:04)
[2023-07-19] MEDS: LIDOCAINE 1% 20 ML 5 ML INJ (09:04)
[2023-07-19] MEDS: BUPIVACAINE 0.5% (PF) 10 ML VIAL 5 ML INJ (09:04)
[2023-07-19] MEDS: MIDAZOLAM 2 MG/2 ML VIAL 1 MG IV ×2 (09:11→09:13)
--- NOTE | 2023-07-19 09:15 | DI.RAD.S_ITS ---
PROCEDURE: PAIN L/S FACET INJ/BLK 1ST VIPUL INDICATIONS: FACET ARTHROPATHY COMPARISON: None. FINDINGS: Fluoroscopic spot filming was performed to verify placement of spinal needles at the bilateral L4, L5, S1 level(s), as labeled on the films. Appropriate location(s) of the needle tip(s) was confirmed by injection of iodinated contrast. IMPRESSION: Intraoperative guidance provided. Dictated by: Ellis Cardoso M.D. on 07/19/2023 at 11:03 Approved by: Ellis Cardoso M.D. on 07/19/2023 at 11:04
--- NOTE | 2023-07-19 09:22 | P.PCN_ITS ---
Date/Time/Diagnoses Date of procedure: 07/19/23 Time of procedure: 09:22 Pre-procedure diagnosis: 1. FACET ARTHROPATHY Post-procedure diagnosis: same Procedure Notes Procedure: 1. BILATERAL- L4, L5 and S1 DIAGNOSTIC MB BLOCKS with LA Anesthetic Indications: Maggi is referred by Dr. Mederos for treatment of Bilateral Axial LBP. Physician: Driss Esqueda Total Fluoroscopy time (seconds): 12 Total sedation minutes: 20 Complications: none Procedure in detail & Post-procedure care: DESCRIPTION OF PROCEDURE Fluoroscopically guided, contrast-controlled bilateral L4, L5 and S1 medial branch blocks with 0.5cc of 0.5% Marcaine. Following review of allergy and review of potential side effects and complications, including, but not necessarily limited to, infection, allergic reaction, local tissue breakdown, nerve injury, paralysis, stroke and possible , the patient indicated that the patient understood and agreed to proceed. An informed consent document was signed by the patient, witnessed by a nurse, and placed in the patient's chart. After review of previous anaesthesic history and IV conscious sedation the patient was deemed safe to proceed with today's procedure with IV conscious sedation as ASA class II designation. Safety time-out was performed to confirm patient ID, procedure to be performed and site of procedure. IV sedation was accomplished with a combination of 4mg of Versed was administered by the RN after DO order, titrated to patient comfort during the course of the procedure while the patient remained responsive to all verbal commands In the prone position, following sterile prep and drape of the lumbar region, the right L4, L5 and S1 anatomical location of the medial branch of the dorsal ramus was identified fluoroscopically. Subsequently an anesthetic skin wheal using 1% lidocaine solution was initiated at each of the anatomical spots. Subsequently then a 22-gauge 3.5-inch spinal needle was atraumatically introduced and advanced under fluoroscopic guidance at each of the corresponding sites at the right L4, L5 and S1 MB. After negative aspiration, 0.2cc of Isovue 200 was injected, confirming placement without vascular or intrathecal uptake. Subsequently then 0.5cc of 0.5% Marcaine solution was injected at each of the corresponding sites at the right L4, L5 and S1 medial branch locations. The identical procedure was replicated on the left. The patient tolerated the procedure well without signs or symptoms of complications prior to transfer to the recovery area continued monitoring without incident. Post-procedure, the patient was monitored initiating provocative activities to measure the amount of relief from block of the facetogenic pain. The patient reported a VAS of 7 prior to the procedure and a post-procedure VAS of 1. It has been a pleasure to assist in the diagnostic and therapeutic care of your patient. POST OP INSTRUCTIONS The patient was provided with a Pain Log to complete over the next several hours and subsequent days prior to the patient's follow up with the ordering physician. If the patient has mechanical manufacturing engineer relief to the solution applied, then they may be a candidate for medial branch rhizotomy. The patient is aware, was provided, once again, with a Pain Log and will follow up with the referring physician for review and clinical correlation
== END 2023-07-19 09:45 | disposition home or self-care (01) ==
LOC: RAD 08:17
PROVIDERS: Family Provider Family Medicine; PCP Family Medicine; Referring Provider Physical Medicine & Rehabilitation; Visit Provider Physical Medicine & Rehabilitation
DX: M47.816 Spondylosis without myelopathy or radiculopathy, lumbar region (principal); M47.817 Spondylosis without myelopathy or radiculopathy, lumbosacral region
CPT/HCPCS: 64493; 64494; 99152; J2250

== ENCOUNTER 2023-09-20 07:48 | Outpatient (CLI) | payer OTHER, SELFPAY ==
[2023-09-20] VITALS (8 sets, daily range): BP systolic 117–131; BP diastolic 73–87; PULSE 72–79; RESP 13–18; TEMP 36.9; O2SAT 98–100
--- NOTE | 2023-09-20 08:45 | DI.RAD.S_ITS ---
PROCEDURE: PAIN L/S FACET INJ/BLK 1ST VIPUL INDICATIONS: Bilateral L4-L5 and S1 medial branch block SA COMPARISON: [facility], , PAIN L/S FACET INJ/BLK 1ST VIPUL, 07/19/2023, 9:04. FINDINGS: Fluoroscopic spot filming was performed to verify placement of spinal needles at the L4, L5 and S1 level(s), as labeled on the films. Appropriate location(s) of the needle tip(s) was confirmed by injection of iodinated contrast. IMPRESSION: Fluoro guidance was provided intraoperatively for bilateral L4, L5 and S1 medial branch block performed by ordering physician. Dictated by: Ashish Vanegas M.D. on 09/20/2023 at 11:37 Approved by: Ashish Vanegas M.D. on 09/20/2023 at 11:40
[2023-09-20] MEDS: MIDAZOLAM 2 MG/2 ML VIAL IV (09:07)
[2023-09-20] MEDS: LIDOCAINE 2% INJ SDV 5ML 10 ML INJ (09:10)
[2023-09-20] MEDS: iopamidoL 15 ML VIAL 3 ML INJ (09:11)
[2023-09-20] MEDS: LIDOCAINE 1% 20 ML 5 ML INJ (09:11)
--- NOTE | 2023-09-20 09:25 | PM.PROC.IR.1 ---
Date/Time/Diagnoses Date of procedure: 09/20/23 Time of procedure: 09:25 Pre-procedure diagnosis: 1. FACET ARTHROPATHY Post-procedure diagnosis: same Procedure Notes Procedure: 1. BILATERAL- L4, L5 and S1 DIAGNOSTIC MB BLOCKS with SA Anesthetic Indications: Marino is referred by Dr. Mederos for treatment of Bilateral Axial LBP. Physician: Driss Esqueda Total Fluoroscopy time (seconds): 9 Total sedation minutes: 14 Complications: none Procedure in detail & Post-procedure care: DESCRIPTION OF PROCEDURE Fluoroscopically guided, contrast-controlled bilateral L4, L5 and S1 medial branch blocks with 0.5cc of 2% Lidocaine. Following review of allergy and review of potential side effects and complications, including, but not necessarily limited to, infection, allergic reaction, local tissue breakdown, nerve injury, paralysis, stroke and possible , the patient indicated that the patient understood and agreed to proceed. An informed consent document was signed by the patient, witnessed by a nurse, and placed in the patient's chart. After review of previous anaesthesic history and IV conscious sedation the patient was deemed safe to proceed with today's procedure with IV conscious sedation as ASA class II designation. Safety time-out was performed to confirm patient ID, procedure to be performed and site of procedure. IV sedation was accomplished with a combination of 2mg of Versed was administered by the RN after DO order, titrated to patient comfort during the course of the procedure while the patient remained responsive to all verbal commands In the prone position, following sterile prep and drape of the lumbar region, the right L4, L5 and S1 anatomical location of the medial branch of the dorsal ramus was identified fluoroscopically. Subsequently an anesthetic skin wheal using 1% lidocaine solution was initiated at each of the anatomical spots. Subsequently then a 22-gauge 3.5-inch spinal needle was atraumatically introduced and advanced under fluoroscopic guidance at each of the corresponding sites at the right L4, L5 and S1 MB. After negative aspiration, 0.2cc of Isovue 200 was injected, confirming placement without vascular or intrathecal uptake. Subsequently then 0.5cc of 2% Lidocaine solution was injected at each of the corresponding sites at the right L4, L5 and S1 medial branch locations. The identical procedure was replicated on the left. The patient tolerated the procedure well without signs or symptoms of complications prior to transfer to the recovery area continued monitoring without incident. Post-procedure, the patient was monitored initiating provocative activities to measure the amount of relief from block of the facetogenic pain. The patient reported a VAS of 7 prior to the procedure and a post-procedure VAS of 1. It has been a pleasure to assist in the diagnostic and therapeutic care of your patient. POST OP INSTRUCTIONS The patient was provided with a Pain Log to complete over the next several hours and subsequent days prior to the patient's follow up with the ordering physician. If the patient has special education tutor relief to the solution applied, then they may be a candidate for medial branch rhizotomy. The patient is aware, was provided, once again, with a Pain Log and will follow up with the referring physician for review and clinical correlation
== END 2023-09-20 09:40 | disposition home or self-care (01) ==
LOC: RAD 07:49
PROVIDERS: Family Provider Family Medicine; PCP Family Medicine; Referring Provider Physical Medicine & Rehabilitation; Visit Provider Physical Medicine & Rehabilitation
DX: M47.816 Spondylosis without myelopathy or radiculopathy, lumbar region (principal); M47.817 Spondylosis without myelopathy or radiculopathy, lumbosacral region
CPT/HCPCS: 64493; 64494; 99152; J2250

== ENCOUNTER 2023-10-18 07:23 | Outpatient (CLI) | payer OTHER, SELFPAY ==
[2023-10-18] VITALS (14 sets, daily range): BP systolic 116–147; BP diastolic 70–91; PULSE 70–82; RESP 13–22; TEMP 36.7; O2SAT 95–100
--- NOTE | 2023-10-18 08:00 | DI.RAD.S_ITS ---
PROCEDURE: PAIN L/S MED/LAT N RFA BILAT INDICATIONS: Bilateral L4-L5 and S1 medial branch RFA COMPARISON: [facility], XA, PAIN L/S FACET INJ/BLK 1ST VIPUL, 09/20/2023, 9:10. FINDINGS: Fluoroscopic spot filming was performed to verify placement of spinal needles at the bilateral L4, L5, and S1 levels, as labeled on the films. Appropriate locations of the needle tips were confirmed by injection of iodinated contrast. IMPRESSION: Intraprocedural examination demonstrates appropriate needle positioning. Approved by: Dann Somers M.D. on 10/18/2023 at 13:43
[2023-10-18] MEDS: fentaNYL 100 MCG/2 ML INJ 50 MCG IV (08:25)
[2023-10-18] MEDS: MIDAZOLAM 2 MG/2 ML VIAL 1 MG IV ×3 (08:25→08:49)
[2023-10-18] MEDS: BUPIVACAINE 0.5% (PF) 10 ML VIAL 5 ML INJ (08:40)
[2023-10-18] MEDS: LIDOCAINE 1% 20 ML 5 ML INJ (08:40)
--- NOTE | 2023-10-18 09:07 | P.PCN_ITS ---
Date/Time/Diagnoses Date of procedure: 10/18/23 Time of procedure: 09:07 Pre-procedure diagnosis: 1. RECALCITRANT FACET ARTHROPATHY Post-procedure diagnosis: same Procedure Notes Procedure: 1. BILATERAL L4 AND L5 MEDIAL BRANCH RADIOFREQUENCY NEUROTOMY AND S1 DORSAL RAMUS BRANCH RADIOFREQUENCY NEUROTOMY Indications: Marino is referred by Dr. Mederos for treatment of facet arthropathy. Physician: Driss Esqueda Total Fluoroscopy time (seconds): 18 Total sedation minutes: 37 Complications: none Procedure in detail & Post-procedure care: DESCRIPTION OF PROCEDURE Bilateral L4 and L5 medial branch radiofrequency neurotomy and bilateral S1 dorsal ramus radiofrequency neurotomy under fluoroscopy with conscious sedation. The patient is well known to this clinic having undergone previous facet injections with good but temporary relief. The patient has experienced appropriate, concordant relief with previous facet and median branch blocks but the patient's pain has been recalcitrant to further conservative measures. Therefore, based upon the patient's relief and persistent symptoms, the patient is considered an appropriate candidate for facet rhizotomy. All of the patient's questions regarding the risks versus benefits of the procedure, including, but not limited to, bleeding, infection, temporary as well as lasting nerve injury, paralysis, stroke, and , as well treatment alternatives were answered to satisfaction. After obtaining informed consent, denial of pertinent drug allergies, as well as being made aware of the potential risks of bleeding, infection, spinal cord trauma, paralysis, temporary and permanent nerve damage, seizure, stroke, and possible , the patient was brought to the fluoroscopy suite and positioned prone on the fluoroscopy table. The lumbar region was prepped in usual sterile fashion and covered with a fenestrated drape in the usual sterile fashion. Appropriate monitors applied including pulse oximeter, pulse, and blood pressure for regular monitoring throughout the procedure. After review of previous anaesthesic history and IV conscious sedation the patient was deemed safe to proceed with today's procedure with IV conscious sedation as ASA class II designation. Safety time-out was performed to confirm patient ID, procedure to be performed and site of procedure. IV sedation was accomplished with a combination of 3mg of Versed and 50mcg of Fentanyl administered by the RN after DO order, titrated to patient comfort during the course of the procedure while the patient remained responsive to all verbal commands. After local infiltration using 1% lidocaine, under fluoroscopic guidance, a 10- cm RF insulated needle with a 10-mm active tip was positioned parallel to the junction of the right sacral ala and the superior articulating process where the S1 dorsal ramus resides. Needle placement was confirmed with motor stimulation of .5v on the right which produced local stimulation without radicular component. The stimulation was then increased to 2v with, once again, only local multifidus stimulation without radicular component. The needle was then removed and the identical procedure was performed along the length of the right L5 medial branch with motor stimulation at .7v on the right. The identical procedure was once again performed along the length of the right L4 medial branch with motor stimulation of .5v on the right. The medial branches were then anesthetised with 0.5% Marcaine. This was then followed by two discreet lesions performed at 80 degrees Celsius for 90 seconds each. The identical procedure was repeated on the left. The patient tolerated the procedure well without signs or symptoms of complications prior to transfer to the recovery area continued monitoring without incident. The patient was then transferred to the recovery area where they were observed for an appropriate period of time after the injection. The patient reported a VAS score of 9 prior to the procedure and a post-procedure VAS of 0. POST OP INSTRUCTIONS The patient was provided a Pain Log to continue to record the patient's response to the target-specific procedure prior to the patient's follow-up visit with the referring physician. Additionally, specific post-injection care instructions and a contact number to our office were provided if concerns arise regarding possible complications associated with the procedure are suspected.
== END 2023-10-18 09:34 | disposition home or self-care (01) ==
PROVIDERS: Family Provider Family Medicine; PCP Family Medicine; Referring Provider Physical Medicine & Rehabilitation; Visit Provider Physical Medicine & Rehabilitation
DX: M47.816 Spondylosis without myelopathy or radiculopathy, lumbar region (principal); M47.817 Spondylosis without myelopathy or radiculopathy, lumbosacral region
CPT/HCPCS: 64635; 64636; 99152; 99153; J2250; J3010

== ENCOUNTER → 2023-11-23 08:57 | Outpatient (CLI) | payer OTHER, SELFPAY ==
--- NOTE | 2023-11-23 08:58 | DI.RAD.S_ITS ---
PROCEDURE: XR ABDOMEN 1V INDICATIONS: KIDNEY STONES TECHNIQUE: One view of the abdomen acquired. COMPARISON: None. FINDINGS: Surgical changes and devices: None. Bowel: Bowel gas pattern is normal. Soft tissues: No suspicious abdominal calcifications. Visualized solid organ contours appear normal in size. Bones: No suspicious bony lesions. IMPRESSION: No acute abnormality. No renal calculi are demonstrated. Dictated by: Charli Porter M.D. on 11/23/2023 at 9:43 Approved by: Charli Porter M.D. on 11/23/2023 at 9:44
== END ==
PROVIDERS: Family Provider Family Medicine; PCP Family Medicine; Referring Provider Physician Assistant Medical; Visit Provider Physician Assistant Medical
DX: N20.0 Calculus of kidney (principal)
CPT/HCPCS: 74018

== ENCOUNTER 2023-11-23 09:48 | Emergency (ER) | payer OTHER, SELFPAY ==
[2023-11-23 09:55] VITALS: PULSE 102; O2SAT 99
[2023-11-23 09:56] VITALS: BP 154/91; PULSE 101; O2SAT 99
[2023-11-23 09:58] VITALS: BP 154/91; PULSE 101; RESP 20; TEMP 37; O2SAT 99; BMI 28.1
[2023-11-23 10:00] VITALS: BP 152/88; PULSE 95; O2SAT 98
--- NOTE | 2023-11-23 10:24 | ED_ITS ---
HPI - Abdominal Pain General Chief Complaint: Abdominal Pain Stated Complaint: loss apetite, nausea, back pain Time Seen by Provider: 11/23/23 09:50 Source: patient Mode of arrival: Ambulatory History of Present Illness HPI narrative: 43-year-old male with history of chronic lumbar back pain, history of kidney stones presents by private vehicle from home for 2 months of low appetite, nausea, abdominal bloating, early satiety. Associated nonbloody diarrhea in the mornings. Patient reports unintentional weight loss of 15 lb in the last 2 months. Reports former history of smoking, currently vapes daily. Denies alcohol use. He called his primary care doctor today about his issue, however she referred him to the emergency department for evaluation and possible CT imaging. Related Data Home Medications Medication Instructions Recorded Confirmed Resmed Airsense 10 CPAP #1 ea 10/02/18 09/26/23 pantoprazole 40 mg tablet,delayed 40 mg PO DAILY 02/22/21 09/26/23 release (Protonix) promethazine 25 mg tablet 25 mg PO 10/24/22 09/26/23 icudrwdhoc-ajqromssbbocv-vlhvrjjf 1 cap PO Q8H PRN 07/04/23 09/26/23 50 mg-300 mg-40 mg capsule (Fioricet) fluoxetine 40 mg capsule 40 mg PO DAILY 07/04/23 09/26/23 hydroxyzine HCl 10 mg tablet 10 mg PO BEDTIME 07/04/23 09/26/23 ibuprofen 200 mg capsule 200 mg PO Q6H PRN 07/04/23 09/26/23 potassium citrate 5 mEq (540 mg) 5 meq PO BID 07/04/23 09/26/23 tablet,extended release gabapentin 300 mg capsule 600 mg PO 3XD PRN neuropathic pain 08/20/23 09/26/23 chlorhexidine gluconate 0.12 % 15 ml PO BID 09/26/23 09/26/23 mouthwash Previous Rx's Medication Instructions Recorded cyclobenzaprine 10 mg tablet 10 mg PO TID PRN muscle spasm #90 06/21/22 tabs rizatriptan 5 mg disintegrating See Rx Instructions PO .COMPLEX 06/21/22 tablet #60 tabs naproxen 500 mg tablet 500 mg PO BID #30 tabs 07/13/22 ondansetron 4 mg disintegrating 4 mg PO TID-QID PRN nausea and 01/08/23 tablet vomiting #10 tabs tamsulosin 0.4 mg capsule 0.4 mg PO BEDTIME #30 caps 01/09/23 tramadol 50 mg tablet 50 mg PO TID PRN pain #30 tabs 10/18/23 ondansetron 4 mg disintegrating 4 mg PO Q8H PRN nausea and 11/23/23 tablet vomiting #30 tabs Allergies Allergy/AdvReac Type Severity Reaction Status Date / Time Iodinated Contrast Media Allergy Severe ANAPHALAXIS Verified 09/26/23 07:50 [IODINATED CONTRAST- ORAL AND IV DYE] meloxicam [MELOXICAM] Allergy Intermediate RASH Verified 09/26/23 07:50 Review of Systems Review of Systems Narrative: See HPI Patient History Medical History Lumbar pars defect Lumbar facet joint syndrome Renal calculus, right Vision disorder Rosacea Acne Trigger finger (~2019) Sleep apnea (~2017) PTSD (post-traumatic stress disorder) (~2011) Headache (~2006) Shoulder pain Gout (~2009) Chronic back pain (~1998) Vertigo (~2017) Tinnitus (~2016) Hearing loss (~2011) History of urinary incontinence (~2009) Fecal incontinence (~2014) Irritable bowel syndrome (~2014) GERD (gastroesophageal reflux disease) (~2017) BPH w urinary obs/LUTS History of nephrolithiasis Migraine (~2009) Kidney stone (~2000) Surgical History Anesthesia History of tonsillectomy (~2014) History of nephrolithotomy with removal of calculi Family History Sister Migraines CVA (cerebral vascular accident) History of heart disease Mother Mental health problem Social History marital status: number of children: 2 Smoking Status: Current every day smoker Tobacco: How many years used: 6 Smokeless tobacco user: other Smoking Status: Current every day smoker tobacco type: vaping alcohol intake frequency: 0-2 drinks per day Substance Use Type: does not use Exam Initial Vital Signs Initial Vital Signs: Vital Signs Pulse Rate 102 H 11/23/23 09:55 Pulse Oximetry 99 11/23/23 09:55 Const: Awake, alert, no acute distress, nontoxic appearing Cardiac: regular rate, regular rhythm RESP: unlabored, clear bilaterally, no wheezing GI: Soft, nontender, nondistended, no rebound, no guarding Skin: Warm, Dry, intact, no rashes Neuro: AO x3, CN II-XII grossly intact, moves all extremities Course Orders Ordered: Discontinued Medications Diphenhydramine HCl (Diphenhydramine 50 Mg/Ml Vial) 50 mg IV NOW ONE Stop: 11/23/23 10:29 Last Admin: 11/23/23 11:05 Dose: 50 mg Documented By: LIZETTE Sodium Chloride (Normal Saline 0.9%) 1,000 mls @ 1,000 mls/hr IV BOLUS ONE Stop: 11/23/23 11:20 Last Infusion: 11/23/23 12:00 Dose: 0 mls/hr Documented By: Admin: 11/23/23 11:06 Dose: 1,000 mls/hr Documented By: LIZETTE Methylprednisolone (Methylprednisolone 125 Mg/2 Ml Vial) 125 mg IV NOW ONE Stop: 11/23/23 10:29 Last Admin: 11/23/23 11:06 Dose: 125 mg Documented By: LIZETTE Ondansetron HCl (Ondansetron 4 Mg/2 Ml Inj) 4 mg IV NOW ONE Stop: 11/23/23 10:22 Last Admin: 11/23/23 11:31 Dose: 4 mg Documented By: LIZETTE Vital Signs Vital signs: Vital Signs - 8 hr 11/23/23 09:55 11/23/23 09:56 11/23/23 09:56 Temperature Pulse Rate 102 H 101 H Respiratory Rate Blood Pressure 154/91 H Pulse Oximetry 99 99 Oxygen Delivery Method 11/23/23 09:58 11/23/23 10:00 11/23/23 10:00 Temperature 98.6 F Pulse Rate 101 H 95 H Respiratory Rate 20 Blood Pressure 154/91 H 152/88 H Pulse Oximetry 99 98 Oxygen Delivery Method Room Air MDM - Abdominal Pain Differential Diagnosis Differential diagnosis: Likely abdominal pain, calculus of kidney and constipation Lab Data 11/23/23 10:23 11/23/23 10:23 Labs: Lab Results 11/23/23 Range/Units 10:23 WBC 5.5 (4.5-11.0) X10^3/uL RBC 4.78 (4.5-5.9) X10^6/uL Hgb 15.6 (13.5-17.5) g/dL Hct 45.7 (41-53) % MCV 95.6 (80-100) fL MCH 32.5 (26-34) PG MCHC 34.0 (30-36) % RDW 12.8 (11.6-14.8) % Plt Count 221 (150-400) X10^3/uL Neut % (Auto) 72.6 (50-75) % Lymph % (Auto) 20.9 L (25-40) % [place] % (Auto) 5.8 (3-14) % Eos % (Auto) 0.2 L (2-4) % Baso % (Auto) 0.5 (0-2) % Neut # (Auto) 4000 (5863-5599) /uL Lymph # (Auto) 1100 (1902-2113) /uL [place] # (Auto) 300 (0-900) /uL Eos # (Auto) 0 (0-450) /uL Baso # (Auto) 0 (0-100) /uL Sodium 140 (137-145) mmol/L Potassium 3.8 (3.4-5.1) mmol/L Chloride 108 H (98-107) mmol/L Carbon Dioxide 25 (22-32) mmol/L BUN 12 (9-20) mg/dL Creatinine 0.79 (0.66-1.25) mg/dL Estimated GFR > 60 (>60) mL/min BUN/Creatinine Ratio 15.2 (6-22) Glucose 101 H (70-100) mg/dL Calcium 9.5 (8.4-10.2) mg/dL Magnesium 1.9 (1.6-2.3) mg/dL Total Bilirubin 1.5 H (0.2-1.3) mg/dL AST 28 (17-59) IU/L ALT 27 (<50) IU/L Alkaline Phosphatase 71 (38-126) U/L Total Protein 7.8 (6.3-8.2) g/dL Albumin 4.7 (3.5-5.0) g/dL Globulin 3.1 (1.7-4.1) g/dL Albumin/Globulin Ratio 1.5 (1.0-2.8) Lipase 177 (23-300) U/L Point of care testing: Urine Dip Bedside Urine Glucose Negative Bedside Urine Bilirubin - Negative Bedside Urine Ketone +/- 5 Urine Specific [place] 1.015 Bedside Urine Occult Blood - Negative Bedside Urine pH 6.5 Bedside Urine Protein - Negative Bedside Urine Urobilinogen - Negative Bedside Urine Nitrite - Negative Bedside Urine Leukocytes - Negative Esterase Imaging Data CT scan - abdomen/pelvis: Radiologist's Impression: PROCEDURE: CT ABDOMEN PELVIS W CON INDICATIONS: EARLY SATIETY, UNINTENTIONAL WEIGHT LOSS, NAUSEA X 2 MO TECHNIQUE: After the administration of intravenous contrast, axial sections acquired from the lung bases to the pubic symphysis. Coronal and sagittal reformats were performed. For radiation dose reduction, the following was used: automated exposure control, adjustment of mA and/or kV according to patient size. COMPARISON: [facility], CT, CT ABDOMEN PELVIS WO [facility], 01/25/2023, 11:37. FINDINGS: Image quality: Diagnostic. Lower Chest: No significant findings. ABDOMEN: Liver: No solid mass. Gallbladder: No radiopaque gallstones or wall thickening. Biliary ducts: No biliary dilation. Pancreas: No ductal dilation. Spleen: Size is within normal limits. Adrenal Glands: No adrenal nodules. Kidneys and Ureters: No hydronephrosis. No solid mass. No complex renal cystic lesion which requires follow up. Unchanged inferior pole right renal calcification. Stomach and Bowel: No obstruction. There is incomplete distention of the transverse and descending colon, limiting evaluation. Colonic diverticular present.. Appendix is normal. Peritoneum: No abnormal intraperitoneal fluid. No free air. Ventral Wall: No significant ventral hernia. Abdominal Nodes: No retroperitoneal or mesenteric adenopathy by size criteria. Vessels: Aorta and inferior vena cava are normal in size. PELVIS: Pelvic Organs: Unremarkable. Bladder: No bladder wall thickening, accounting for underdistention. Pelvic Nodes: No enlarged lymph nodes. Miscellaneous: No inguinal hernias are seen. Bones: No aggressive osseous abnormality. IMPRESSION: Incomplete distention with appearance of thickening in the left colon. No definitive inflammation. However, early development of colitis cannot be definitively excluded. Unchanged nonobstructing right renal calculus. Dictated by: Marija Franco M.D. on 11/23/2023 at 11:30 Approved by: Marija Franco M.D. on 11/23/2023 at 11:33 MDM Narrative Medical decision making narrative: Well-appearing patient with 2 months of symptoms. Early satiety and weight loss concerning. Laboratory work and CT imaging ordered. Patient has contrast allergy, 30 p.o. Benadryl and Solu-Medrol ordered for premedication. Laboratory work shows WBC count 5.5, hemoglobin 15.6, platelets 221, sodium 140, potassium 3.8, creatinine 0.79, T bili 1.5, AST 28, ALT 27, alk phos 71. CT of the abdomen and pelvis does not show any acute findings. Mentioned incomplete distention of left colon without definitive inflammation. Stated ?early development of colitis can not be definitively excluded?, however based on benign abdominal exam and duration of symptoms colitis felt to be much less likely. Patient counseled on lab and imaging findings. Recommended GI follow up and a referral was provided. Discharge Plan Departure Patient Disposition: Home Clinical Impression: Abdominal pain, Nausea Instructions: DI for Abdominal Pain-Adult Activity Restrictions/Additional Instructions: Your laboratory work and CT imaging today did not show any abnormalities. I do not know the cause of your nausea and early satiety. I do recommend following up with GI as we discussed previously. Medications for nausea has been sent to your pharmacy. Prescriptions: New ondansetron 4 mg tablet,disintegrating 4 mg PO Q8H PRN (Reason: nausea and vomiting) Qty: 30 0RF No Action tramadol 50 mg tablet 50 mg PO TID PRN (Reason: pain) Qty: 30 1RF pantoprazole [Protonix] 40 mg tablet,delayed release (DR/EC) 40 mg PO DAILY cyclobenzaprine 10 mg tablet 10 mg PO TID PRN (Reason: muscle spasm) Qty: 90 0RF Rx Instructions: may make drowsy do not drive during therapy rizatriptan 5 mg tablet,disintegrating See Rx Instructions PO .COMPLEX Qty: 60 0RF Rx Instructions: take 1 tablet at onset of headache; if no relief, may repeat 1 tablet after at least 2 hrs PO naproxen 500 mg tablet 500 mg PO BID Qty: 30 0RF Rx Instructions: take one tablet twice daily with food promethazine 25 mg tablet 25 mg PO Patient Comments: take 1 tablet by mouth every 6 hours if needed for nausea and vomiting tamsulosin 0.4 mg capsule 0.4 mg PO BEDTIME Qty: 30 5RF ondansetron 4 mg tablet,disintegrating 4 mg PO TID-QID PRN (Reason: nausea and vomiting) Qty: 10 0RF gabapentin 300 mg capsule 600 mg PO 3XD PRN (Reason: neuropathic pain) potassium citrate 5 mEq (540 mg) tablet extended release 5 meq PO BID fluoxetine 40 mg capsule 40 mg PO DAILY hydroxyzine HCl 10 mg tablet 10 mg PO BEDTIME ibuprofen 200 mg capsule 200 mg PO Q6H PRN dqfcefjxmi-yrnrvbqbdazog-boad [Fioricet] 50-300-40 mg capsule 1 cap PO Q8H PRN chlorhexidine gluconate 0.12 % mouthwash 15 ml PO BID (DME) Resmed Airsense 10 CPAP Qty: 1 Dose Instruction: As directed Patient Comments: Pressure: 6-16 cmH2O DME: [employer] Rx Instructions: As directed Referrals: Eric Gracia MD [Non-Staff] - Aravind Mederos MD [Primary Care Provider] - Stand Alone Forms: Patient Portal/API
[2023-11-23 10:37] LABS: Add Manual Diff / Slide Review NO; Basophils Absolute Auto 0 /uL (0-100); Basophils Percent Auto 0.5 % (0-2); Eosinophils Absolute Auto 0 /uL (0-450); Eosinophils Percent Auto 0.2 % (2-4); Hematocrit 45.7 % (41-53); Hemoglobin 15.6 g/dL (13.5-17.5); Lymphocytes Absolute Auto 1100 /uL (1100-4500); Lymphocytes Percent Auto 20.9 % (25-40); Mean Corpuscular Hemoglobin 32.5 PG (26-34); Mean Corpuscular Volume 95.6 fL (80-100); Monocytes Absolute Auto 300 /uL (0-900); Monocytes Percent Auto 5.8 % (3-14); Neutrophils Absolute Auto 4000 /uL (1500-7000); Neutrophils Percent Auto 72.6 % (50-75); Platelet Count 221 X10^3/uL (150-400); Red Blood Cell Count 4.78 X10^6/uL (4.5-5.9); Red Cell Distribution Width 12.8 % (11.6-14.8); White Blood Cell Count 5.5 X10^3/uL (4.5-11.0)
[2023-11-23 10:49] LABS: Alanine Aminotransferase 27 IU/L (<50); Albumin 4.7 g/dL (3.5-5.0); Albumin Globulin Ratio 1.5 (1.0-2.8); Alkaline Phosphatase 71 U/L (38-126); Aspartate Aminotransferase 28 IU/L (17-59); BUN Creatinine Ratio 15.2 (6-22); Bilirubin Total 1.5 mg/dL (0.2-1.3); Blood Urea Nitrogen 12 mg/dL (9-20); Calcium 9.5 mg/dL (8.4-10.2); Carbon Dioxide 25 mmol/L (22-32); Chloride 108 mmol/L (98-107); Estimated Glomerular Filt Rate > 60 mL/min (>60); Globulin 3.1 g/dL (1.7-4.1); Glucose 101 mg/dL (70-100); HEMOLYSIS < 15 (0-50); Lipase 177 U/L (23-300); Magnesium 1.9 mg/dL (1.6-2.3); Potassium 3.8 mmol/L (3.4-5.1); Sodium 140 mmol/L (137-145); Total Protein 7.8 g/dL (6.3-8.2)
[2023-11-23] MEDS: diphenhydrAMINE 50 MG/ML VIAL IV (11:05)
[2023-11-23] MEDS: methylPREDNISolone 125 MG/2 ML VIAL IV (11:06)
[2023-11-23] MEDS: SODIUM CHLORIDE 0.9% 1,000 ML 1000 ML IV (11:06)
--- NOTE | 2023-11-23 11:08 | PC.NURSE ---
HX kidney stones, recent flank pain.
[2023-11-23] MEDS: ONDANSETRON 4 MG/2 ML INJ IV (11:31)
[2023-11-23 11:47] VITALS: BP 139/84; PULSE 88; O2SAT 99
== END 2023-11-23 12:00 | disposition home or self-care (01) ==
PROVIDERS: Emergency Provider Emergency Medicine; Family Provider Family Medicine; PCP Family Medicine
DX: R10.9 Unspecified abdominal pain (principal); R11.0 Nausea; N20.0 Calculus of kidney
CPT/HCPCS: 36415; 74018; 74177; 80053; 81003; 83690; 83735; 85025; 96361; 96374; 96375; 99284; J1200; J2405; J2919; Q9967

== ENCOUNTER → 2024-03-28 07:51 | Outpatient (CLI) | payer OTHER, SELFPAY ==
--- NOTE | 2024-03-28 07:52 | DI.MRI.S_ITS ---
PROCEDURE: MR LUMBAR SPINE WO CON INDICATIONS: Low back pain bilateral extremity symptoms TECHNIQUE: Noncontrast sagittal T1 spin echo and T2 fast echo, sagittal STIR, and T2 fast spin echo through the lumbar spine. In cases with scoliosis, additional coronal T2 fast spin echo may be performed. COMPARISON: [facility], MR, MR LUMBAR SPINE WO CON, 09/05/2018, 17:09. FINDINGS: Image quality: Excellent. Alignment and Curvature: There is normal bony alignment. Bone Marrow: Marrow is of normal overall signal. No acute vertebral body compression fractures. Spinal Cord: Conus medullaris terminates at the L1 level. Visualized cord demonstrates normal signal and size. Paraspinous Soft Tissues: No paravertebral masses. T12-L1: Normal appearance. L1-L2: Normal appearance. L2-L3: Normal appearance. L3-L4: Normal appearance. L4-L5: Disc desiccation and minimal disc bulge. No central canal stenosis. Stable mild right and moderate left neural foraminal stenosis. L5-S1: Disc desiccation and mild height loss. Bilateral pars defects. No significant anterolisthesis. No significant central canal or neural foraminal stenosis. IMPRESSION: 1. Stable mild lower lumbar spine degenerative disc disease as described above. 2. Again seen pars interarticularis defects at L5-S1. Dictated by: Song Arthur M.D. on 03/28/2024 at 10:17 Approved by: Song Arthur M.D. on 03/28/2024 at 10:20
== END ==
PROVIDERS: Family Provider Family Medicine; PCP Family Medicine; Referring Provider Nurse Practitioner Family; Visit Provider Physical Medicine & Rehabilitation
DX: M51.369 Other intervertebral disc degeneration, lumbar region without mention of lumbar back pain or lower extremity pain (principal); M43.07 Spondylolysis, lumbosacral region; M47.816 Spondylosis without myelopathy or radiculopathy, lumbar region; M43.06 Spondylolysis, lumbar region
CPT/HCPCS: 72148

== ENCOUNTER → 2024-04-01 12:13 | Outpatient (CLI) | payer OTHER, SELFPAY ==
--- NOTE | 2024-04-01 12:14 | DI.RAD.S_ITS ---
PROCEDURE: XR SHOULDER LT MIN 2V INDICATIONS: Pain in L AC joint - suspect tendinitis TECHNIQUE: 3 views of the shoulder were acquired. COMPARISON: None. FINDINGS: No acute fracture or dislocation. The joint spaces are preserved. The visualized left hemithorax is within normal limits. Two subcutaneous punctate metallic densities are present, lying superficial to the acromial/lateral deltoid muscle. IMPRESSION: 1. No acute fracture or dislocation of the left shoulder. 2. Punctate subcutaneous metallic debris around the lateral aspect of the shoulder. Dictated by: Barry Jean M.D. on 04/01/2024 at 14:22 Approved by: Barry Jean M.D. on 04/01/2024 at 14:24
== END ==
PROVIDERS: Family Provider Family Medicine; PCP Family Medicine; Referring Provider Physician Assistant; Visit Provider Physician Assistant
DX: M25.512 Pain in left shoulder (principal)
CPT/HCPCS: 73030

== ENCOUNTER → 2024-04-04 09:09 | Outpatient (CLI) | payer OTHER, SELFPAY ==
[2024-04-04 11:11] LABS: Alanine Aminotransferase 28 IU/L (<50); Albumin 4.9 g/dL (3.5-5.0); Albumin Globulin Ratio 1.9 (1.0-2.8); Alkaline Phosphatase 73 U/L (38-126); Aspartate Aminotransferase 28 IU/L (17-59); BUN Creatinine Ratio 13.3 (6-22); Bilirubin Direct 0.2 mg/dL (0.0-0.4); Bilirubin Total 1.2 mg/dL (0.2-1.3); Blood Urea Nitrogen 11 mg/dL (9-20); Carbon Dioxide 27 mmol/L (22-32); Chloride 102 mmol/L (98-107); Cholesterol 246 mg/dL (140-199); Estimated Glomerular Filt Rate > 60 mL/min (>60); Globulin 2.6 g/dL (1.7-4.1); Glucose 97 mg/dL (70-100); HDL Cholesterol 51 mg/dL (40-60); HEMOLYSIS < 15 (0-50); LDL Cholesterol Calculated 180 mg/dL (<100); Potassium 4.3 mmol/L (3.4-5.1); Sodium 137 mmol/L (137-145); Total Protein 7.5 g/dL (6.3-8.2); Triglycerides 76 mg/dL (35-150)
[2024-04-05 07:36] LABS: Apolipoprotein B 123 mg/dL (<90)
== END ==
PROVIDERS: Family Provider Family Medicine; PCP Family Medicine; Referring Provider Family Medicine; Visit Provider Family Medicine
DX: R17 Unspecified jaundice (principal); M79.5 Residual foreign body in soft tissue; E78.5 Hyperlipidemia, unspecified; K21.9 Gastro-esophageal reflux disease without esophagitis
CPT/HCPCS: 36415; 80053; 80061; 82172; 82248

== ENCOUNTER 2024-04-14 23:29 | Emergency (ER) | payer OTHER, SELFPAY ==
--- NOTE | 2024-04-14 23:43 | ED_ITS ---
HPI - General Adult General Chief complaint: Dizziness Stated complaint: high heart rate, vertigo, dizziness Time Seen by Provider: 04/14/24 23:38 Source: patient and family Mode of arrival: Ambulatory Limitations: no limitations History of Present Illness HPI narrative: 44-year-old male. Does have history of anxiety and PTSD. Has a history of vertigo. Has also had history of migraines. States he was had his relatively normal state health. States he had a sudden onset feeling like he was falling and then a vertigo sensation. This seems to have triggered quite a bit of anxiety. He states that he was not having any chest pain. Some nausea but no vomiting. No fevers. No headache. No palpitations. He has had anxiety in the past but has never had anything this bad. Related Data Home Medications Medication Instructions Recorded Confirmed Resmed Airsense 10 CPAP #1 ea 10/02/18 04/03/24 [id number]-gmbwccaosydxm-mfbsycxg 1 cap PO Q8H PRN 07/04/23 04/03/24 50 mg-300 mg-40 mg capsule (Fioricet) potassium citrate 5 mEq (540 mg) 5 meq PO DAILY 04/01/24 04/03/24 tablet,extended release Previous Rx's Medication Instructions Recorded rizatriptan 5 mg disintegrating See Rx Instructions PO .COMPLEX 06/21/22 tablet #60 tabs naproxen 500 mg tablet 500 mg PO BID #30 tabs 07/13/22 tamsulosin 0.4 mg capsule 0.4 mg PO BEDTIME #30 caps 01/09/23 ondansetron 4 mg disintegrating 4 mg PO Q8H PRN nausea and 11/23/23 tablet vomiting #30 tabs pantoprazole 40 mg tablet,delayed 40 mg PO DAILY #90 tabs 12/10/23 release (Protonix) tramadol 50 mg tablet 50 mg PO BID PRN pain #42 tabs 03/13/24 cyclobenzaprine 10 mg tablet 10 mg PO 3XD PRN for muscle spasm 03/17/24 #90 tabs rosuvastatin 10 mg tablet 10 mg PO DAILY #90 tabs 04/07/24 meclizine 25 mg tablet 25 mg PO BID PRN dizziness #14 tabs 04/15/24 Allergies Allergy/AdvReac Type Severity Reaction Status Date / Time Iodinated Contrast Media Allergy Severe ANAPHALAXIS Verified 04/03/24 15:19 [IODINATED CONTRAST- ORAL AND IV DYE] meloxicam [MELOXICAM] Allergy Intermediate RASH Verified 04/03/24 15:19 Review of Systems Review of Systems ROS Unobtainable: All systems reviewed & are unremarkable except as noted in HPI and below Patient History Medical History Lumbar pars defect Lumbar facet joint syndrome Renal calculus, right Vision disorder Rosacea Acne Trigger finger (~2019) Sleep apnea (~2017) PTSD (post-traumatic stress disorder) (~2011) Headache (~2006) Shoulder pain Gout (~2009) Chronic back pain (~1998) Vertigo (~2017) Tinnitus (~2016) Hearing loss (~2011) History of urinary incontinence (~2009) Fecal incontinence (~2014) Irritable bowel syndrome (~2014) GERD (gastroesophageal reflux disease) (~2017) BPH w urinary obs/LUTS History of nephrolithiasis Migraine (~2009) Kidney stone (~2000) Surgical History Anesthesia History of tonsillectomy (~2014) History of nephrolithotomy with removal of calculi Family History Sister Migraines CVA (cerebral vascular accident) History of heart disease Mother Mental health problem Social History marital status: number of children: 2 Smoking Status: Current every day smoker Tobacco: How many years used: 6 Smokeless tobacco user: other Smoking Status: Current every day smoker (vape) tobacco type: vaping alcohol intake frequency: 0-2 drinks per day Exam Initial Vital Signs Initial Vital Signs: Vital Signs Temperature 100.9 F H 04/14/24 23:44 Pulse Rate 152 H 04/14/24 23:44 Respiratory Rate 27 H 04/14/24 23:44 Blood Pressure 144/93 H 04/14/24 23:44 Pulse Oximetry 100 04/14/24 23:44 Oxygen Delivery Method Room Air 04/14/24 23:44 Const General: cooperative and No ill appearing HENMT Head: normal to inspection and normocephalic Resp Effort & Inspection: normal respiratory effort Auscultation: clear to auscultation bilaterally Cardio Rate: tachycardic Rhythm: regular rhythm GI Inspection: normal to inspection Skin General: no rashes or lesions noted Neuro General: patient alert, patient awake, patient oriented x3 and moves all extremities Extrem General: normal to inspection and capillary refill normal Psych Other: Anxious mood Course Orders Ordered: ED Orders 04/14/24 23:30 EKG-12 Lead Stat 04/14/24 23:44 XR chest 1V Stat 04/14/24 23:55 Complete Blood Count AUTO DIFF Stat Comprehensive Metabolic Panel Stat Ethanol (ETOH) Stat Lipase Stat Magnesium Stat Troponin & CK Cardiac Panel Stat Discontinued Medications Diazepam (Diazepam 10 Mg/2 Ml Syringe) 2 mg IV NOW ONE Stop: 04/14/24 23:45 Last Admin: 04/15/24 00:03 Dose: 2 mg Documented By: GUSTAVO Meclizine HCl (Meclizine Hcl 12.5 Mg Tablet) 25 mg PO NOW ONE Stop: 04/15/24 00:45 Last Admin: 04/15/24 00:53 Dose: 25 mg Documented By: ALETHA Vital Signs Vital signs: Vital Signs - 8 hr 04/14/24 23:44 04/14/24 23:44 04/15/24 00:03 Temperature 100.9 F H Pulse Rate 152 H 146 H 129 H Respiratory Rate 27 H Blood Pressure 144/93 H Pulse Oximetry 100 100 98 Oxygen Delivery Method Room Air 04/15/24 00:06 04/15/24 00:06 04/15/24 00:30 Temperature Pulse Rate 127 H 122 H Respiratory Rate Blood Pressure 149/78 H Pulse Oximetry 97 97 Oxygen Delivery Method 04/15/24 00:30 04/15/24 00:55 04/15/24 00:55 Temperature Pulse Rate 116 H Respiratory Rate Blood Pressure 159/88 H 159/99 H Pulse Oximetry 98 Oxygen Delivery Method 04/15/24 01:00 04/15/24 01:00 04/15/24 01:20 Temperature Pulse Rate 116 H 104 H Respiratory Rate Blood Pressure 143/93 H Pulse Oximetry 98 Oxygen Delivery Method 04/15/24 01:30 04/15/24 01:30 Temperature Pulse Rate 104 H Respiratory Rate Blood Pressure 132/91 H Pulse Oximetry 97 Oxygen Delivery Method Room Air Medical Decision Making Lab Data Lab results reviewed: Yes I reviewed the patient's lab results. 04/14/24 23:55 04/14/24 23:55 Labs: Lab Results 04/14/24 Range/Units 23:55 WBC 8.1 (4.5-11.0) X10^3/uL RBC 4.78 (4.5-5.9) X10^6/uL Hgb 15.8 (13.5-17.5) g/dL Hct 46.0 (41-53) % MCV 96.2 (80-100) fL MCH 33.1 (26-34) PG MCHC 34.5 (30-36) % RDW 13.1 (11.6-14.8) % Plt Count 273 (150-400) X10^3/uL Neut % (Auto) 59.1 (50-75) % Lymph % (Auto) 32.2 (25-40) % [place] % (Auto) 7.7 (3-14) % Eos % (Auto) 0.3 L (2-4) % Baso % (Auto) 0.7 (0-2) % Neut # (Auto) 4800 (5195-3936) /uL Lymph # (Auto) 2600 (5250-9995) /uL [place] # (Auto) 600 (0-900) /uL Eos # (Auto) 0 (0-450) /uL Baso # (Auto) 100 (0-100) /uL Sodium 138 (137-145) mmol/L Potassium 4.1 (3.4-5.1) mmol/L Chloride 103 (98-107) mmol/L Carbon Dioxide 24 (22-32) mmol/L BUN 14 (9-20) mg/dL Creatinine 0.88 (0.66-1.25) mg/dL Estimated GFR > 60 (>60) mL/min BUN/Creatinine Ratio 15.9 (6-22) Glucose 151 H (70-100) mg/dL Calcium 9.9 (8.4-10.2) mg/dL Magnesium 1.9 (1.6-2.3) mg/dL Total Bilirubin 1.3 (0.2-1.3) mg/dL AST 48 (17-59) IU/L ALT 33 (<50) IU/L Alkaline Phosphatase 54 (38-126) U/L Total Creatine Kinase 77 (55-170) U/L Troponin I 0.016 (0.01-0.034) ng/mL Total Protein 7.8 (6.3-8.2) g/dL Albumin 4.9 (3.5-5.0) g/dL Globulin 2.9 (1.7-4.1) g/dL Albumin/Globulin Ratio 1.7 (1.0-2.8) Lipase 191 (23-300) U/L Ethyl Alcohol < 10 ( - 10) mg/dL Imaging Data Chest x-ray: Radiologist's Impression: PROCEDURE: XR CHEST 1V INDICATIONS: Tachycardia TECHNIQUE: One view of the chest was acquired. COMPARISON: [facility], CHEST 1 VIEW, 04/11/2017, 20:03. FINDINGS: Surgical changes and devices: None. Lungs and pleura: Lungs are clear. No pleural effusions or pneumothorax. Mediastinum: Mediastinal contours appear normal. Heart size is normal. Bones and chest wall: No suspicious bony lesions. Overlying soft tissues appear unremarkable. IMPRESSION: No acute cardiopulmonary abnormality is seen. ECG Data Attestation: I personally reviewed and interpreted this ECG as follows: Interpretation: Sinus tachycardia Ventricular rate of 137 Normal axis Normal QRS ST T wave changes MDM Narrative Medical decision making narrative: Patient was tachycardic but was in a sinus tachycardia. Labs are unremarkable. Valium seemed to help his symptoms somewhat but meclizine seemed to be the best at controlling his symptoms. His heart rate now his consistently less than 5. He was feeling much better. No chest palpitations. The vertigo is not completely gone it is greatly improved. Low suspicion for CVA/TIA. This has been that this was a combination vertigo and his anxiety. Will send home with a prescription for meclizine. He was given return precautions and follow-up instructions. He expressed understanding and agreement with the plan. Discharge Plan Departure Patient Disposition: Home Clinical Impression: Anxiety, Vertigo Instructions: DI for Vertigo Activity Restrictions/Additional Instructions: Continue to take all of your medications as directed. Contact your primary provider for follow-up. Return to the emergency department for new or worsening symptoms. Prescriptions: New meclizine 25 mg tablet 25 mg PO BID PRN (Reason: dizziness) Qty: 14 0RF No Action tramadol 50 mg tablet 50 mg PO BID PRN (Reason: pain) Qty: 42 0RF cyclobenzaprine 10 mg tablet 10 mg PO 3XD PRN (Reason: for muscle spasm) Qty: 90 0RF rosuvastatin 10 mg tablet 10 mg PO DAILY Qty: 90 0RF rizatriptan 5 mg tablet,disintegrating See Rx Instructions PO .COMPLEX Qty: 60 0RF Rx Instructions: take 1 tablet at onset of headache; if no relief, may repeat 1 tablet after at least 2 hrs PO pantoprazole [Protonix] 40 mg tablet,delayed release (DR/EC) 40 mg PO DAILY Qty: 90 0RF naproxen 500 mg tablet 500 mg PO BID Qty: 30 0RF Rx Instructions: take one tablet twice daily with food tamsulosin 0.4 mg capsule 0.4 mg PO BEDTIME Qty: 30 5RF ondansetron 4 mg tablet,disintegrating 4 mg PO Q8H PRN (Reason: nausea and vomiting) Qty: 30 0RF xxbkcrdbyt-erwzfvkvgluua-oyuj [Fioricet] 50-300-40 mg capsule 1 cap PO Q8H PRN potassium citrate 5 mEq (540 mg) tablet extended release 5 meq PO DAILY (DME) Resmed Airsense 10 CPAP Qty: 1 Dose Instruction: As directed Patient Comments: Pressure: 6-16 cmH2O DME: [facility] Rx Instructions: As directed Referrals: Aravind Mederos MD [Primary Care Provider] - Stand Alone Forms: Patient Portal/API/Survey
[2024-04-14 23:44] VITALS: BP 144/93; PULSE 146; PULSE 152; RESP 27; TEMP 38.3; O2SAT 100; BMI 26.4
--- NOTE | 2024-04-14 23:44 | DI.RAD.S_ITS ---
PROCEDURE: XR CHEST 1V INDICATIONS: Tachycardia TECHNIQUE: One view of the chest was acquired. COMPARISON: [facility], , CHEST 1 VIEW, 04/11/2017, 20:03. FINDINGS: Surgical changes and devices: None. Lungs and pleura: Lungs are clear. No pleural effusions or pneumothorax. Mediastinum: Mediastinal contours appear normal. Heart size is normal. Bones and chest wall: No suspicious bony lesions. Overlying soft tissues appear unremarkable. IMPRESSION: No acute cardiopulmonary abnormality is seen. Dictated by: Nadir Dempsey M.D. on 04/15/2024 at 0:11 Approved by: Nadir Dempsey M.D. on 04/15/2024 at 0:11
--- NOTE | 2024-04-14 23:47 | EKG_ITS ---
[address] [address] Test Date: 2024-04-14 Pat Name: Marino Moise Department: [facility] Room: Gender: Male [employer] Developer: ZHANG MARTIN : 1980 Requested By: Order Number: [id number] Reading MD: Shaun Dougherty Measurements Intervals [place] Rate: 137 P: 23 CT: 130 QRS: 17 QRSD: 92 T: 28 QT: 298 QTc: 449 Interpretive Statements Sinus tachycardia Possible Lateral infarct , age undetermined Electronically Signed On 04-15-2024 19:42:58 PST by Shaun Dougherty
[2024-04-15] VITALS (7 sets, daily range): BP systolic 132–159; BP diastolic 78–99; PULSE 104–129; O2SAT 97–98
[2024-04-15] MEDS: diazePAM 10 MG/2 ML SYRINGE 2 MG IV (00:03)
[2024-04-15 00:06] LABS: Add Manual Diff / Slide Review NO; Basophils Absolute Auto 100 /uL (0-100); Basophils Percent Auto 0.7 % (0-2); Eosinophils Absolute Auto 0 /uL (0-450); Eosinophils Percent Auto 0.3 % (2-4); Hemoglobin 15.8 g/dL (13.5-17.5); Lymphocytes Absolute Auto 2600 /uL (1100-4500); Lymphocytes Percent Auto 32.2 % (25-40); Mean Corpuscular HGB Conc 34.5 % (30-36); Mean Corpuscular Hemoglobin 33.1 PG (26-34); Mean Corpuscular Volume 96.2 fL (80-100); Monocytes Absolute Auto 600 /uL (0-900); Monocytes Percent Auto 7.7 % (3-14); Neutrophils Absolute Auto 4800 /uL (1500-7000); Neutrophils Percent Auto 59.1 % (50-75); Platelet Count 273 X10^3/uL (150-400); Red Blood Cell Count 4.78 X10^6/uL (4.5-5.9); Red Cell Distribution Width 13.1 % (11.6-14.8); White Blood Cell Count 8.1 X10^3/uL (4.5-11.0)
[2024-04-15 00:23] LABS: Alanine Aminotransferase 33 IU/L (<50); Albumin 4.9 g/dL (3.5-5.0); Albumin Globulin Ratio 1.7 (1.0-2.8); Alkaline Phosphatase 54 U/L (38-126); Aspartate Aminotransferase 48 IU/L (17-59); BUN Creatinine Ratio 15.9 (6-22); Bilirubin Total 1.3 mg/dL (0.2-1.3); Blood Urea Nitrogen 14 mg/dL (9-20); Calcium 9.9 mg/dL (8.4-10.2); Carbon Dioxide 24 mmol/L (22-32); Chloride 103 mmol/L (98-107); Creatine Kinase 77 U/L (55-170); Estimated Glomerular Filt Rate > 60 mL/min (>60); Ethanol (ETOH) < 10 mg/dL; Globulin 2.9 g/dL (1.7-4.1); Glucose 151 mg/dL (70-100); HEMOLYSIS 137 (0-50); Lipase 191 U/L (23-300); Magnesium 1.9 mg/dL (1.6-2.3); Potassium 4.1 mmol/L (3.4-5.1); Sodium 138 mmol/L (137-145); Total Protein 7.8 g/dL (6.3-8.2)
[2024-04-15 00:34] LABS: Troponin I 0.016 ng/mL (0.01-0.034)
[2024-04-15] MEDS: MECLIZINE HCL 12.5 MG TABLET 25 MG PO (00:53)
== END 2024-04-15 01:37 | disposition home or self-care (01) ==
PROVIDERS: Emergency Provider Emergency Medicine; Family Provider Family Medicine; PCP Family Medicine
DX: F41.9 Anxiety disorder, unspecified (principal); R42 Dizziness and giddiness; R11.0 Nausea; R00.0 Tachycardia, unspecified
CPT/HCPCS: 36415; 71045; 80053; 80320; 82550; 83690; 83735; 84484; 85025; 93005; 96374; 99284; J3360

== ENCOUNTER → 2024-06-04 09:06 | Outpatient (CLI) | payer OTHER, SELFPAY ==
--- NOTE | 2024-06-04 09:08 | DI.RAD.S_ITS ---
PROCEDURE: XR LUMBAR SPINE MIN 4V INDICATIONS: BACK PAIN TECHNIQUE: 5 views of the lumbar spine were acquired, including bilateral oblique views. COMPARISON: [facility], CT, CT ABDOMEN PELVIS W CON, 11/23/2023, 11:14. [facility], CR, L-SPINE 2-3 VIEWS, 08/01/2017, 1:29. [facility], MR, MR LUMBAR SPINE WO CON, 03/28/2024, 8:30. FINDINGS: Rudimentary ribs are present at T12. Otherwise, there are 5 non rib-bearing lumbar vertebrae. The vertebral body heights are preserved. The lumbar lordosis is preserved. Bilateral L5-S1 pars interarticularis defects. Mild bilateral L4-L5 foraminal narrowing. The intervertebral disc heights are preserved. IMPRESSION: Mild bilateral L4-L5 foraminal narrowing with bilateral L5-S1 pars interarticularis defects. Dictated by: Barry Jean M.D. on 06/04/2024 at 9:38 Approved by: Barry Jean M.D. on 06/04/2024 at 9:41
== END ==
PROVIDERS: Family Provider Family Medicine; PCP Family Medicine; Referring Provider Physical Medicine & Rehabilitation; Visit Provider Physical Medicine & Rehabilitation
DX: M47.816 Spondylosis without myelopathy or radiculopathy, lumbar region (principal); M43.06 Spondylolysis, lumbar region; M48.061 Spinal stenosis, lumbar region without neurogenic claudication; R00.2 Palpitations; M25.512 Pain in left shoulder
CPT/HCPCS: 72110; 99214

== ENCOUNTER 2024-07-01 09:39 | Outpatient (CLI) | payer OTHER, SELFPAY ==
[2024-07-01] VITALS (7 sets, daily range): BP systolic 113–121; BP diastolic 66–81; PULSE 60–67; RESP 14–18; TEMP 36.4; O2SAT 95–100
[2024-07-01] MEDS: MIDAZOLAM 2 MG/2 ML VIAL IV (11:16)
[2024-07-01] MEDS: BUPIVACAINE 0.25% (PF) VIAL 2 ML INJ (11:20)
[2024-07-01] MEDS: DEXAMETHASONE 10 MG/ML VIAL INJ (11:20)
[2024-07-01] MEDS: iopamidoL 15 ML VIAL 3 ML INJ (11:20)
[2024-07-01] MEDS: BETAMETHASONE 30 MG/5 ML MDV 12 MG INJ (11:20)
--- NOTE | 2024-07-01 11:29 | P.PCN_ITS ---
Date/Time/Diagnoses Date of procedure: 07/01/24 Time of procedure: 11:29 Pre-procedure diagnosis: 1. FORAMINAL STENOSIS WITH LE SYMPTOMS Post-procedure diagnosis: same Procedure Notes Procedure: 1. FLUOROSCOPICALLY GUIDED CONTRAST CONTROLLED TRANSFORAMINAL EPIDURAL STEROID INJECTION - RIGHT L4/5 TFESI Indications: Marino is referred by Dr. Mederos for treatment of Foraminal Stenosis with Right LE Symptoms Physician: Driss Esqueda Total Fluoroscopy time (seconds): 8 Total sedation minutes: 10 Complications: none Procedure in detail & Post-procedure care: FINDINGS Foraminal Nerve Root Compression secondary to disc disease and facet hypertrophy DESCRIPTION OF PROCEDURE Following review of allergy and review of potential side effects and complications, including, but not necessarily limited to, infection, allergic reaction, local tissue breakdown, stroke, temporary or permanent nerve injury, paralysis, and possible , the patient indicated that the patient understood and agreed to proceed. An informed consent document was signed by the patient, witnessed by a nurse, and placed in the patient's chart. Additionally, other treatment options including medications, modalities, and physical therapy were reviewed with the patient. After review of previous anaesthesic history and IV conscious sedation the patient was deemed safe to proceed with today?s procedure with IV conscious sedation as ASA class II designation. Safety time-out was performed to confirm patient ID, procedure to be performed and site of procedure. IV sedation was accomplished with a combination of 2mg of Versed was administered by the RN after DO order, titrated to patient comfort during the course of the procedure while the patient remained responsive to all verbal commands In the prone position following sterile prep and drape of the lumbar region, the right L4/5 posterior neuroforamen was identified fluoroscopically. The skin was anesthetized via a 25-gauge 1.5-inch needle with 1% lidocaine solution. At this point, a 25-gauge 3.5-inch spinal needle was atraumatically introduced and advanced under fluoroscopic guidance through the posterior right L4/5 neuroforamen to approximately the anterior aspect of the canal. Depth was confirmed on lateral view. Following negative aspiration, injection of approximately 1.5cc of Isovue 200 under live fluoroscopy in the AP view confirmed excellent flow along the nerve root, into the epidural space without vascular or intrathecal uptake observed Radiological data, including multiple fluoroscopic views of the lumbosacral sp ine, reveal a spinal needle at the right L4/5 posterior neuroforamen. Subsequent views show flow of contrast material flowing superiorly and inferiorly along the nerve root confirming epidural flow. Subsequently, a test dose of 1.5 cc of 1% lidocaine solution was administered and patient was observed for two minutes for signs or symptoms of complications, including abdominal pain, shortness of breath, bilateral upper or lower extremity weakness, nausea and vomiting, prior to steroid injection. At this point, a total of 2cc or 10mg of dexamethasone and 6mg of betamethasone was injected without incident. The procedure tolerated the procedure well without signs or symptoms of complications prior to transfer to the recovery area continued monitoring without incident. The patient was then transferred to the recovery area where they were observed for an appropriate time after the injection. The patient reported a VAS score of 7 prior to the procedure and a post- procedure VAS of 0. POST OP INSTRUCTIONS The patient was provided a Pain Log to continue to record their response to the target-specific procedure prior to follow-up visit with their referring physician. Additionally, specific post-injection care instructions and a contact number to our office were provided if concerns arise regarding possible complications associated with the procedure are suspected.
== END 2024-07-01 11:46 | disposition home or self-care (01) ==
PROVIDERS: Family Provider Family Medicine; PCP Family Medicine; Referring Provider Physical Medicine & Rehabilitation; Visit Provider Physical Medicine & Rehabilitation
DX: M48.061 Spinal stenosis, lumbar region without neurogenic claudication (principal); M51.16 Intervertebral disc disorders with radiculopathy, lumbar region; M47.26 Other spondylosis with radiculopathy, lumbar region
CPT/HCPCS: 64483; 99152; J0702; J1100; J2250; J3490

== ENCOUNTER → 2024-08-19 09:13 | Outpatient (CLI) | payer OTHER, SELFPAY ==
[2024-08-19 11:50] LABS: Hemoglobin A1C% w Est Avg Glu 4.8 % (4.0-6.0)
[2024-08-19 12:06] LABS: Alanine Aminotransferase 25 IU/L (<50); Albumin 4.8 g/dL (3.5-5.0); Albumin Globulin Ratio 2.1 (1.0-2.8); Alkaline Phosphatase 69 U/L (38-126); Aspartate Aminotransferase 31 IU/L (17-59); BUN Creatinine Ratio 11.5 (6-22); Bilirubin Total 0.8 mg/dL (0.2-1.3); Blood Urea Nitrogen 9 mg/dL (9-20); C-Reactive Protein Quant < 0.5 mg/dL (<1.0); Calcium 9.6 mg/dL (8.4-10.2); Carbon Dioxide 29 mmol/L (22-32); Chloride 102 mmol/L (98-107); Cholesterol 177 mg/dL (140-199); Estimated Glomerular Filt Rate > 60 mL/min (>60); Globulin 2.3 g/dL (1.7-4.1); Glucose 90 mg/dL (70-99); HDL Cholesterol 54 mg/dL (40-60); HEMOLYSIS < 15 (0-50); LDL Cholesterol Calculated 105 mg/dL (<100); Sodium 139 mmol/L (137-145); Total Protein 7.1 g/dL (6.3-8.2); Triglycerides 88 mg/dL (35-150)
[2024-08-19 12:10] LABS: Rheumatoid Factor < 8.6 IU/mL (<12.0)
[2024-08-19 12:17] LABS: Erythrocyte Sedimentation Rate 1 MM/HR (0-15)
[2024-08-20 04:08] LABS: Apolipoprotein B 83 mg/dL (<90)
== END ==
PROVIDERS: Family Provider Family Medicine; PCP Family Medicine; Referring Provider Family Medicine; Visit Provider Family Medicine
DX: E78.5 Hyperlipidemia, unspecified (principal); M10.9 Gout, unspecified; K21.9 Gastro-esophageal reflux disease without esophagitis; R07.9 Chest pain, unspecified; M79.644 Pain in right finger(s); M79.645 Pain in left finger(s); M25.562 Pain in left knee; M25.561 Pain in right knee; M79.89 Other specified soft tissue disorders; M25.461 Effusion, right knee; M25.462 Effusion, left knee
CPT/HCPCS: 36415; 80053; 80061; 82172; 83036; 85651; 86140; 86430

== ENCOUNTER 2024-09-24 23:59 | Emergency (ER) | payer OTHER, SELFPAY ==
--- NOTE | 2024-09-25 00:13 | ED_ITS ---
HPI - General Adult General Chief complaint: Fall Stated complaint: Possible concussion, PTSD/ confusion Time Seen by Provider: 09/25/24 00:11 History of Present Illness HPI narrative: 44-year-old male with a past medical history of PTSD, anxiety, depression, comes into the ED from home for evaluation of brain fog/confusion. He states that earlier today he was at work and something ?startled him states that he does not remember/know how he got on the floor but he has a video showing that he was able to lower himself to floor. 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 At time of evaluation patient not complaining of any headache visual disturbances chest pain shortness breath fever chills nausea vomiting abdominal pain or any other GI/ symptoms. He states that he does have a history of vertigo it does take meclizine for this. He is also stating that he has concerns of symptomology secondary to mold exposure. Related Data Home Medications Medication Instructions Recorded Confirmed Resmed Airsense 10 CPAP #1 ea 10/02/18 08/19/24 potassium citrate 5 mEq (540 mg) 5 meq PO DAILY 04/01/24 08/19/24 tablet,extended release ieoycyboue-ofmczxxevxepu-numpcbjh 1 cap PO Q8H PRN 04/22/24 08/19/24 50 mg-300 mg-40 mg capsule (Fioricet) fluoxetine 10 mg capsule 40 mg PO DAILY 06/04/24 08/19/24 Previous Rx's Medication Instructions Recorded tamsulosin 0.4 mg capsule 0.4 mg PO BEDTIME #30 caps 01/09/23 ondansetron 4 mg disintegrating 4 mg PO Q8H PRN nausea and 11/23/23 tablet vomiting #30 tabs rizatriptan 5 mg disintegrating See Rx Instructions PO .COMPLEX 04/22/24 tablet #60 tabs cyclobenzaprine 10 mg tablet 10 mg PO 3XD PRN for muscle spasm 04/28/24 #90 tabs rosuvastatin 10 mg tablet 10 mg PO DAILY #90 tabs 05/23/24 gabapentin 300 mg capsule 300 mg PO .COMPLEX #90 caps 06/04/24 meclizine 25 mg tablet 25 mg PO TID #90 tabs 08/19/24 alprazolam 0.5 mg tablet (Xanax) 0.5 mg PO .COMPLEX PRN Pre MRI or 09/01/24 Procedure or Panic #14 tabs Allergies Allergy/AdvReac Type Severity Reaction Status Date / Time Iodinated Contrast Media Allergy Severe ANAPHALAXIS Verified 08/19/24 09:39 [IODINATED CONTRAST- ORAL AND IV DYE] meloxicam [MELOXICAM] Allergy Intermediate RASH Verified 08/19/24 09:39 Review of Systems Review of Systems Narrative: General: Denies fever, chills, weight loss HEENT: Denies headache, eye drainage, eye irritation, head trauma, sore throat, voice change Cardiovascular: Denies any chest pain, palpitations, tachycardia Respiratory: Denies any shortness of breath, cough, wheeze, stridor GI/: Denies any abdominal pain, nausea, vomiting, diarrhea, bright red blood per rectum, melanotic stools, urinary frequency, urinary retention, dysuria, hematuria MSK: Denies any joint pain, muscle pains, swelling Skin: Denies any rashes, lesions, discoloration Neuro: Positive brain fog/infusion Denies any headache, lightheadedness, dizziness, fainting, weakness Psych: Denies SI/HI Patient History Medical History Acne BPH w urinary obs/LUTS Chronic back pain (~1998) Fecal incontinence (~2014) GERD (gastroesophageal reflux disease) (~2017) Gout (~2009) Headache (~2006) Hearing loss (~2011) History of nephrolithiasis History of urinary incontinence (~2009) Irritable bowel syndrome (~2014) Kidney stone (~2000) Lumbar facet joint syndrome Lumbar pars defect Lumbar radiculopathy Migraine (~2009) PTSD (post-traumatic stress disorder) (~2011) Renal calculus, right Rosacea Shoulder pain Sleep apnea (~2017) Tinnitus (~2016) Trigger finger (~2019) Vertigo (~2017) Vision disorder Surgical History Anesthesia History of nephrolithotomy with removal of calculi History of tonsillectomy (~2014) Family History Sister Migraines CVA (cerebral vascular accident) History of heart disease Mother Mental health problem Social History marital status: number of children: 2 Tobacco: How many years used: 6 Smokeless tobacco user: other tobacco type: vaping alcohol intake frequency: 0-2 drinks per day Exam Narrative Exam Narrative: General: Cooperative, well-developed, not in acute distress HEENT: Normocephalic, atraumatic, PERRLA, normal sclera, eyelids normal Neck: Active full range of motion, atraumatic Chest: Normal to inspection, negative crepitus, no overlying erythema ecchymosis Respiratory: Normal respiratory effort, not in acute respiratory distress, clear to auscultation bilaterally negative cough, wheeze, tachypnea, rhonchi, rales Cardiology: Regular rate rhythm negative gallop, murmur, rubs GI/: No tenderness to palpation, soft, non rigid, normal to inspection, exam deferred MSK: Full active range of motion in all 4 extremities, atraumatic, no tenderness to palpation of any bony prominences Skin: No rashes or lesions noted Neuro: NIH of 0, no focal deficits Alert awake oriented x3, moves all 4 extremities spontaneously, cranial nerves intact, able to answer all questions appropriately follows commands appropriately Psych: Cooperative, negative suicidal or homicidal ideations Initial Vital Signs Initial Vital Signs: Vital Signs Temperature 97.3 F L 09/25/24 00:15 Pulse Rate 103 H 09/25/24 00:15 Respiratory Rate 16 09/25/24 00:15 Blood Pressure 165/97 H 09/25/24 00:15 Pulse Oximetry 100 09/25/24 00:15 Oxygen Delivery Method Room Air 09/25/24 00:15 Course Orders Ordered: ED Orders 09/25/24 00:11 CT head/brain wo con Stat 09/25/24 00:12 CBC Auto Diff [Complete Blood Count AUTO DIFF] Stat CMP [Comprehensive Metabolic Panel] Stat MAG [Magnesium] Stat Urine Drug Screen, Rapid Stat 09/25/24 00:31 Urine Microscopic Stat Vital Signs Vital signs: Vital Signs - 8 hr 09/25/24 00:15 Temperature 97.3 F L Pulse Rate 103 H Respiratory Rate 16 Blood Pressure 165/97 H Pulse Oximetry 100 Oxygen Delivery Method Room Air Medical Decision Making Differential Diagnosis Differential Diagnosis: Concussion, CVA, intracranial hemorrhage, electrolyte abnormality Lab Data 09/25/24 00:33 09/25/24 00:33 Labs: Lab Results 09/25/24 09/25/24 Range/Units 00:31 00:33 WBC 7.9 (4.5-11.0) X10^3/uL RBC 4.53 (4.5-5.9) X10^6/uL Hgb 15.0 (13.5-17.5) g/dL Hct 43.0 (41-53) % MCV 95.0 (80-100) fL MCH 33.2 (26-34) PG MCHC 34.9 (30-36) % RDW 12.9 (11.6-14.8) % Plt Count 207 (150-400) X10^3/uL Neut % (Auto) 59.0 (50-75) % Lymph % (Auto) 30.7 (25-40) % [place] % (Auto) 8.9 (3-14) % Eos % (Auto) 0.7 L (2-4) % Baso % (Auto) 0.7 (0-2) % Neut # (Auto) 4700 (8023-5441) /uL Lymph # (Auto) 2400 (4499-4008) /uL [place] # (Auto) 700 (0-900) /uL Eos # (Auto) 100 (0-450) /uL Baso # (Auto) 100 (0-100) /uL Sodium 138 (137-145) mmol/L Potassium 3.5 (3.4-5.1) mmol/L Chloride 103 (98-107) mmol/L Carbon Dioxide 26 (22-32) mmol/L BUN 14 (9-20) mg/dL Creatinine 0.97 (0.66-1.25) mg/dL Estimated GFR > 60 (>60) mL/min BUN/Creatinine Ratio 14.4 (6-22) Glucose 102 H (70-99) mg/dL Calcium 9.2 (8.4-10.2) mg/dL Magnesium 1.9 (1.6-2.3) mg/dL Total Bilirubin 0.8 (0.2-1.3) mg/dL AST 30 (17-59) IU/L ALT 25 (<50) IU/L Alkaline Phosphatase 80 (38-126) U/L Total Protein 7.4 (6.3-8.2) g/dL Albumin 4.6 (3.5-5.0) g/dL Globulin 2.8 (1.7-4.1) g/dL Albumin/Globulin Ratio 1.6 (1.0-2.8) Urine RBC 0-1/hpf (0-5/HPF) Urine WBC 0-1/hpf (0-5/HPF) Ur Squamous Epith Cells 0-1 /hpf (0-5/HPF) Urine Bacteria None seen (None) Urine Mucus 1+ H (Negative) Ur Culture Indicated? Cult not indicated Vol Urine Centrifuged 10ml (spun) U Opiates 300ng/mL cut Negative (Negative) Ur Oxycodone Screen Negative (Negative) Urine Methadone Screen Negative (Negative) Ur Barbiturates Screen Negative (Negative) U Tricyclic Antidepress Negative (Negative) Ur Phencyclidine Scrn Negative (Negative) Ur Amphetamines Screen Negative (Negative) U Methamphetamines Scrn Negative (Negative) Ur MDMA Scrn (Ecstasy) Negative (Negative) U Benzodiazepines Scrn Negative (Negative) Urine Cocaine Screen Negative (Negative) U Marijuana (THC) Screen Positive H (Negative) Urine pH Normal (Normal) Urine Specific [place] Normal (Normal) Ur Creatinine Normal (Normal) Urine Dip Bedside Urine Glucose Negative Bedside Urine Bilirubin - Negative Bedside Urine Ketone - Negative Urine Specific [place] 1.020 Bedside Urine Occult Blood - Negative Bedside Urine pH 6.0 Bedside Urine Protein +/- 15 Bedside Urine Urobilinogen +/- 1mg Bedside Urine Nitrite - Negative Bedside Urine Leukocytes - Negative Esterase Point of care testing: Urine Dip Bedside Urine Glucose Negative Bedside Urine Bilirubin - Negative Bedside Urine Ketone - Negative Urine Specific [place] 1.020 Bedside Urine Occult Blood - Negative Bedside Urine pH 6.0 Bedside Urine Protein +/- 15 Bedside Urine Urobilinogen +/- 1mg Bedside Urine Nitrite - Negative Bedside Urine Leukocytes - Negative Esterase Imaging Data CT scan - head: Radiologist's Impression: [address] [address] [address] Scan Report Signed Patient: Marino Moise MR#: [id number] : 1980 Acct:[id number] Age/Sex: 44 / M Date of Service: 09/25/24 Loc: ED Accession Number: [id number] Procedure: CT head/brain wo con Ordering Provider: Shaun Soto D.O. PROCEDURE: CT HEAD/BRAIN WO CON INDICATIONS: confusion TECHNIQUE: Noncontrast 4.5 mm thick angled axial sections acquired from the foramen magnum to the vertex, with coronal and sagittal reformats. For radiation dose reduction, the following was used: automated exposure control, adjustment of mA and/or kV according to patient size. COMPARISON: None. FINDINGS: Image quality: Diagnostic. CSF spaces: Basal cisterns are patent. No extra-axial fluid collections. Ventricles are normal in size and shape. Brain: No midline shift. No intracranial mass effect or hemorrhage. Garcia- white matter interface is normal. Skull and face: Calvarium and visualized facial bones are intact, without suspicious lesions. Sinuses: Visualized sinuses and mastoids are clear. IMPRESSION: No acute intracranial pathology. MDM Narrative Medical decision making narrative: 44-year-old male with a past medical history of PTSD, anxiety, depression, comes into the ED from home for evaluation of brain fog/confusion. He states that earlier today he was at work and something ?startled him states that he does not remember/know how he got on the floor but he has a video showing that he was able to lower himself to floor. 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 Time of evaluation patient NIH of 0 no focal deficits, patient had lab work imaging performed here in the emergency department. Lab work unremarkable CT scan without any acute findings. Did instruct the patient to follow up with primary care and possible Neurology in outpatient setting for continued evaluation treatment of his symptoms. Patient was given strict return precautions he verbalized understanding of this and agrees to being discharged home with outpatient follow up Discharge Plan Departure Patient Disposition: Home Clinical Impression: Brain fog Activity Restrictions/Additional Instructions: Please follow up with primary care and Neurology in outpatient setting Please read the discharge instructions sheet carefully and bring all papers to all doctor follow-up visits, as it may contain information that your doctor may want to see. Disease processes change and evolve, if your symptoms worsen or if you develop any new symptoms that are concerning to you please return for evaluation. Your evaluation today does not show any evidence of any life- threatening/serious illnesses requiring admission to the hospital or surgery. Please follow-up with your doctor for re-evaluation in approximately 1 day. Seek immediate medical attention for any worrisome symptoms. *If you do not have a primary care provider please contact the [facility] Resource line at [phone]. They will ask some questions about your medical history and help get you set up with a doctor in the community. Prescriptions: No Action cyclobenzaprine 10 mg tablet 10 mg PO 3XD PRN (Reason: for muscle spasm) Qty: 90 0RF alprazolam [Xanax] 0.5 mg tablet 0.5 mg PO .COMPLEX MDD 2 PRN (Reason: Pre MRI or Procedure or Panic) Qty: 14 0RF Rx Instructions: 0.5 mg orally PRN; ruaipeelwe-idgcfwysfjpct-dadd [Fioricet] 50-300-40 mg capsule 1 cap PO Q8H PRN Rx Instructions: Uses in emergency only rizatriptan 5 mg tablet,disintegrating See Rx Instructions PO .COMPLEX Qty: 60 0RF Rx Instructions: take 1 tablet at onset of headache; if no relief, may repeat 1 tablet after at least 2 hrs PO Use in emergency only tamsulosin 0.4 mg capsule 0.4 mg PO BEDTIME Qty: 30 5RF rosuvastatin 10 mg tablet 10 mg PO DAILY Qty: 90 3RF meclizine 25 mg tablet 25 mg PO TID Qty: 90 1RF ondansetron 4 mg tablet,disintegrating 4 mg PO Q8H PRN (Reason: nausea and vomiting) Qty: 30 0RF Hold Instructions: Currently not taking potassium citrate 5 mEq (540 mg) tablet extended release 5 meq PO DAILY fluoxetine 10 mg capsule 40 mg PO DAILY Patient Comments: take 1 capsule by mouth once daily for 1 week then 2 capsules by ... (REFER TO PRESCRIPTION NOTES). gabapentin 300 mg capsule 300 mg PO .COMPLEX Qty: 90 2RF Rx Instructions: 1-2 PO Tid to begin at HS and titrate to pain relief (DME) Resmed Airsense 10 CPAP Qty: 1 Dose Instruction: As directed Patient Comments: Pressure: 6-16 cmH2O DME: [facility] Rx Instructions: As directed Referrals: Aravind Mederos MD [Primary Care Provider] - Stand Alone Forms: Patient Portal/API/Survey
[2024-09-25 00:15] VITALS: BP 165/97; PULSE 103; RESP 16; TEMP 36.3; O2SAT 100; BMI 27.3
[2024-09-25 00:41] LABS: Add Manual Diff / Slide Review NO; Basophils Absolute Auto 100 /uL (0-100); Basophils Percent Auto 0.7 % (0-2); Eosinophils Absolute Auto 100 /uL (0-450); Eosinophils Percent Auto 0.7 % (2-4); Lymphocytes Absolute Auto 2400 /uL (1100-4500); Lymphocytes Percent Auto 30.7 % (25-40); Mean Corpuscular HGB Conc 34.9 % (30-36); Mean Corpuscular Hemoglobin 33.2 PG (26-34); Monocytes Absolute Auto 700 /uL (0-900); Monocytes Percent Auto 8.9 % (3-14); Neutrophils Absolute Auto 4700 /uL (1500-7000); Platelet Count 207 X10^3/uL (150-400); Red Blood Cell Count 4.53 X10^6/uL (4.5-5.9); Red Cell Distribution Width 12.9 % (11.6-14.8); White Blood Cell Count 7.9 X10^3/uL (4.5-11.0)
[2024-09-25 00:42] LABS: Ur Creatinine Normal (Normal); Ur Specific Gravity Normal (Normal); Urine Amphetamines Negative (Negative); Urine Barbiturates Negative (Negative); Urine Benzodiazepines Negative (Negative); Urine Cocaine Negative (Negative); Urine MDMA Negative (Negative); Urine Methadone Negative (Negative); Urine Opiates Negative (Negative); Urine Oxycodone Negative (Negative); Urine Phencyclidine Negative (Negative); Urine THC Positive (Negative); Urine Tricyclic Antidepressant Negative (Negative); Urine pH Normal (Normal)
[2024-09-25 00:51] LABS: Alanine Aminotransferase 25 IU/L (<50); Albumin 4.6 g/dL (3.5-5.0); Albumin Globulin Ratio 1.6 (1.0-2.8); Alkaline Phosphatase 80 U/L (38-126); Aspartate Aminotransferase 30 IU/L (17-59); BUN Creatinine Ratio 14.4 (6-22); Bilirubin Total 0.8 mg/dL (0.2-1.3); Blood Urea Nitrogen 14 mg/dL (9-20); Calcium 9.2 mg/dL (8.4-10.2); Carbon Dioxide 26 mmol/L (22-32); Chloride 103 mmol/L (98-107); Estimated Glomerular Filt Rate > 60 mL/min (>60); Globulin 2.8 g/dL (1.7-4.1); Glucose 102 mg/dL (70-99); HEMOLYSIS < 15 (0-50); Magnesium 1.9 mg/dL (1.6-2.3); Potassium 3.5 mmol/L (3.4-5.1); Sodium 138 mmol/L (137-145); Total Protein 7.4 g/dL (6.3-8.2)
[2024-09-25 00:57] LABS: Bacteria Urine None Seen; Culture Indicated Urine Cult Not Indicated; Mucus Urine 1+ (Negative); RBC Urine 0-1/HPF (0-5/HPF); Squamous Epithelial Cell Urine 0-1 /HPF (0-5/HPF); Urine Volume 10mL (spun); WBC Urine 0-1/HPF (0-5/HPF)
[2024-09-25 01:58] VITALS: BP 125/72; PULSE 71; RESP 16; O2SAT 95
== END 2024-09-25 01:59 | disposition home or self-care (01) ==
PROVIDERS: Emergency Provider Student in an Organized Health Care Education/Training Program; Family Provider Family Medicine; PCP Family Medicine
DX: R41.0 Disorientation, unspecified (principal)
CPT/HCPCS: 70450; 80053; 80305; 81003; 81015; 83735; 85025; 99282; 99284

== ENCOUNTER 2024-10-18 18:38 | Emergency (ER) | payer OTHER, SELFPAY ==
[2024-10-18 18:42] VITALS: BP 156/87; PULSE 97; RESP 18; TEMP 36.9; O2SAT 100; BMI 26.4
--- NOTE | 2024-10-18 19:47 | ED.ANXIETY ---
HPI - Anxiety General Chief Complaint: Anxiety Stated Complaint: ptsd , anxious Time Seen by Provider: 10/18/24 19:47 Source: patient Mode of arrival: Ambulatory History of Present Illness HPI narrative: Patient is a 44-year-old male with a past medical history anxiety depression PTSD presenting from home for increased anxiety, he states that he was started on a bunch of new medications and states that he feels like he needs help managing his anxiety better with the current medications he is currently on. He states that he has an appointment with his primary care doctor on Sunday but feels like he needs adjustment/help with managing his medications. He states that he does not want any new medications he just wants more clarification about how to use the medications. He denies any other symptoms at this time no SI no HI Related Data Home Medications ?Medication ?Instructions ?Recorded ?Confirmed Resmed Airsense 10 CPAP #1 ea 10/02/18 10/10/24 divalproex 500 mg tablet,delayed 500 mg PO BID 10/08/24 10/10/24 release (Depakote) gabapentin 300 mg capsule 300 mg PO TID 10/08/24 10/10/24 prazosin 1 mg capsule 1 mg PO BID 10/08/24 10/10/24 gabapentin 100 mg capsule 100 mg PO 3XD 10/10/24 10/10/24 Previous Rx's ?Medication ?Instructions ?Recorded rizatriptan 5 mg disintegrating See Rx Instructions PO .COMPLEX 04/22/24 tablet #60 tabs alprazolam 0.5 mg tablet (Xanax) 0.5 mg PO .COMPLEX PRN Pre MRI or 09/01/24 Procedure or Panic #14 tabs zolpidem 10 mg tablet (Ambien) 10 mg PO BEDTIME PRN insomnia #14 10/09/24 tabs hydroxyzine pamoate 25 mg capsule 50 mg (2 x 25 mg) PO Q6H PRN 10/14/24 anxiety #120 caps risperidone 0.5 mg tablet 0.5 mg PO BEDTIME #45 tabs 10/14/24 (Risperdal) Allergies Allergy/AdvReac Type Severity Reaction Status Date / Time Iodinated Contrast Media Allergy Severe ANAPHALAXIS Verified 10/18/24 18:44 (IODINATED CONTRAST- ORAL AND IV DYE) meloxicam (MELOXICAM) Allergy Intermediate RASH Verified 10/18/24 18:44 Review of Systems Review of Systems Narrative: General: Denies fever, chills, weight loss HEENT: Denies headache, eye drainage, eye irritation, head trauma, sore throat, voice change Cardiovascular: Denies any chest pain, palpitations, tachycardia Respiratory: Denies any shortness of breath, cough, wheeze, stridor GI/: Denies any abdominal pain, nausea, vomiting, diarrhea, bright red blood per rectum, melanotic stools, urinary frequency, urinary retention, dysuria, hematuria MSK: Denies any joint pain, muscle pains, swelling Skin: Denies any rashes, lesions, discoloration Neuro: Denies any headache, lightheadedness, dizziness, fainting, weakness Psych: Positive increased anxiety Denies SI/HI Patient History Medical History Acne BPH w urinary obs/LUTS Chronic back pain (~1998) Fecal incontinence (~2014) GERD (gastroesophageal reflux disease) (~2017) Gout (~2009) Headache (~2006) Hearing loss (~2011) History of nephrolithiasis History of urinary incontinence (~2009) Irritable bowel syndrome (~2014) Kidney stone (~2000) Lumbar facet joint syndrome Lumbar pars defect Lumbar radiculopathy Migraine (~2009) PTSD (post-traumatic stress disorder) (~2011) Renal calculus, right Rosacea Shoulder pain Sleep apnea (~2017) Tinnitus (~2016) Trigger finger (~2019) Vertigo (~2017) Vision disorder Surgical History Anesthesia History of nephrolithotomy with removal of calculi History of tonsillectomy (~2014) Family History Sister Migraines CVA (cerebral vascular accident) History of heart disease Mother Mental health problem Social History marital status: number of children: 2 Tobacco: How many years used: 6 Smokeless tobacco user: other tobacco type: vaping alcohol intake frequency: 0-2 drinks per day Exam Narrative Exam Narrative: General: Cooperative, well-developed, not in acute distress HEENT: Normocephalic, atraumatic, PERRLA, normal sclera, eyelids normal Neck: Active full range of motion, atraumatic Chest: Normal to inspection, negative crepitus, no overlying erythema ecchymosis Respiratory: Normal respiratory effort, not in acute respiratory distress, clear to auscultation bilaterally negative cough, wheeze, tachypnea, rhonchi, rales Cardiology: Regular rate rhythm negative gallop, murmur, rubs GI/: No tenderness to palpation, soft, non rigid, normal to inspection, exam deferred MSK: Full active range of motion in all 4 extremities, atraumatic, no tenderness to palpation of any bony prominences Skin: No rashes or lesions noted Neuro: Alert awake oriented x3, moves all 4 extremities spontaneously, cranial nerves intact, able to answer all questions appropriately follows commands appropriately Psych: Cooperative, negative suicidal or homicidal ideations Initial Vital Signs Initial Vital Signs: Vital Signs Temperature 98.4 F 10/18/24 18:42 Pulse Rate 97 H 10/18/24 18:42 Respiratory Rate 18 10/18/24 18:42 Blood Pressure 156/87 H 10/18/24 18:42 Pulse Oximetry 100 10/18/24 18:42 Oxygen Delivery Method Room Air 10/18/24 18:42 Course Vital Signs Vital signs: Vital Signs - 8 hr 10/18/24 18:42 Temperature 98.4 F Pulse Rate 97 H Respiratory Rate 18 Blood Pressure 156/87 H Pulse Oximetry 100 Oxygen Delivery Method Room Air MDM - Anxiety Differential Diagnosis Differential diagnosis: Likely panic disorder, acute anxiety and other (Medication management) MDM Narrative Medical decision making narrative: Patient is a 44-year-old male with a past medical history of anxiety depression PTSD who recently got started on new medications such as risperidone, Atarax, Xanax, he states that he just came in wanting better clarifications in regards to how to use his medication due the fact that he feels like it is not ?managing his anxiety as well he states he does have an appointment with his primary care doctor on Sunday but just wanted some clarifications on how to take the medications. I told him to take the Xanax in the morning and at night scheduled rather than taking it after he starts having worsening anxiety, states that the rest of his medications can be continued as per his primary care doctor, I told him to only do this until he sees his primary care doctor on Sunday due to the fact that I do not want him to be reliant on Xanax. He verbalized understanding of this and agrees to being discharged home with outpatient follow up Discharge Plan Departure Patient Disposition: Home Clinical Impression: Anxiety Activity Restrictions/Additional Instructions: Please follow up with your primary care doctor for your scheduled appointment Please read the discharge instructions sheet carefully and bring all papers to all doctor follow-up visits, as it may contain information that your doctor may want to see. Disease processes change and evolve, if your symptoms worsen or if you develop any new symptoms that are concerning to you please return for evaluation. Your evaluation today does not show any evidence of any life-threatening/serious illnesses requiring admission to the hospital or surgery. Please follow-up with your doctor for re-evaluation in approximately 1 day. Seek immediate medical attention for any worrisome symptoms. *If you do not have a primary care provider please contact the [facility] Resource line at [phone]. They will ask some questions about your medical history and help get you set up with a doctor in the community. Prescriptions: No Action alprazolam [Xanax] 0.5 mg tablet 0.5 mg PO .COMPLEX MDD 2 PRN (Reason: Pre MRI or Procedure or Panic) Qty: 14 0RF Rx Instructions: 0.5 mg orally PRN; risperidone [Risperdal] 0.5 mg tablet 0.5 mg PO BEDTIME Qty: 45 1RF hydroxyzine pamoate 25 mg capsule 50 mg PO Q6H MDD 400mg PRN (Reason: anxiety) Qty: 120 1RF Rx Instructions: New frequency. Please fill rizatriptan 5 mg tablet,disintegrating See Rx Instructions PO .COMPLEX Qty: 60 0RF Rx Instructions: take 1 tablet at onset of headache; if no relief, may repeat 1 tablet after at least 2 hrs PO Use in emergency only zolpidem [Ambien] 10 mg tablet 10 mg PO BEDTIME PRN (Reason: insomnia) Qty: 14 0RF prazosin 1 mg capsule 1 mg PO BID divalproex [Depakote] 500 mg tablet,delayed release (DR/EC) 500 mg PO BID gabapentin 300 mg capsule 300 mg PO TID gabapentin 100 mg capsule 100 mg PO 3XD (DME) Resmed Airsense 10 CPAP Qty: 1 Dose Instruction: As directed Patient Comments: Pressure: 6-16 cmH2O DME: [employer] Rx Instructions: As directed Referrals: Aravind Mederos MD [Primary Care Provider, Family Practice] Stand Alone Forms: Patient Portal/API
[2024-10-18 20:10] VITALS: BP 134/85; PULSE 72; RESP 18; O2SAT 98
== END 2024-10-18 20:12 | disposition home or self-care (01) ==
PROVIDERS: Emergency Provider Student in an Organized Health Care Education/Training Program; PCP Family Medicine
DX: F41.9 Anxiety disorder, unspecified (principal)
CPT/HCPCS: 99281

== ENCOUNTER 2024-11-21 13:45 | Outpatient (RCR) | payer OTHER, SELFPAY ==
--- NOTE | 2024-07-25 14:28 | PT.OIE ---
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, lumbar region (07/25/24) Low back pain, unspecified (07/25/24) Impingement syndrome of left shoulder (07/25/24) Past Medical History (Last Reviewed 06/04/24 @ 10:53 by Driss Esqueda DO) Acne BPH w urinary obs/LUTS Chronic back pain (~1998) Fecal incontinence (~2014) GERD (gastroesophageal reflux disease) (~2017) Gout (~2009) Headache (~2006) Hearing loss (~2011) History of nephrolithiasis History of urinary incontinence (~2009) Irritable bowel syndrome (~2014) Kidney stone (~2000) Lumbar facet joint syndrome Lumbar pars defect Lumbar radiculopathy Migraine (~2009) PTSD (post-traumatic stress disorder) (~2011) Renal calculus, right Rosacea Shoulder pain Sleep apnea (~2017) Tinnitus (~2016) Trigger finger (~2019) Vertigo (~2017) Vision disorder Past Surgical History (Last Reviewed 06/04/24 @ 10:53 by Driss Esqueda DO) Anesthesia History of nephrolithotomy with removal of calculi History of tonsillectomy (~2014) Visit Care Team Role Provider Type Aravind Mederos MD Attending Provider Physician Family Provider Primary Care Provider Referring Provider Specialty: Family Practice Address: [address] [place] [address] Email: [email or web address] Physical Therapy Initial Evaluation PT-OP-A Visit Information Start: 07/25/24 13:52 Freq: Status: Active Protocol: Document 07/25/24 12:20 DCW (Rec: 07/25/24 14:27 DCW [id number]) Out-Patient Physical Therapy Visit Information Visit Information Visit Type Initial Evaluation Visit Start Time 12:20 Visit Stop Time 13:00 Visit Number 1 Number of MULTIMEDIA PRODUCTION ASSISTANT Visits 0 Evaluation Information Evaluation Date 07/25/24 PT-OP-B Current Condition Start: 07/25/24 13:52 Freq: Status: Active Protocol: Document 07/25/24 12:20 DCW (Rec: 07/25/24 14:27 DCW [id number]) Current Condition History of Current Condition Onset Date Five month history Current Complaints Shoulder pain, Low back pain History of Current Condition Pt is a 44 year old male presenting with a five month history of left shoulder pain. Reports insidious onset, started out just a little sore , was an inconvenience, but worsened over time, getting ot the point where he was unable to reach out and close his truck door. Received a steroid injection in March, reports it helped for a week or two, but then slowly began worsening again. It is still not as bad as it was at its worst, but is still quite sore . Pt notes that the pain makes it so there's a lot I don't want to do because of the shoulder, but I have to do it, so I just force it. Pt notes that he has a lot of PTSD/ anxiety related symptoms, one of which is difficulty defining timelines, so all his stated timelines are self- admittedly approximations. Does note a long-standing history of low back pain, which involves pars defects and reported history of spina bifida in L3-5. Pt reports he was undergoing nerve ablations every 3-6 months, but then switched doctors, and was told it should be lasting longer, so he underwent a different procedure, which seems to have eliminated a majority of his radicular symptoms. Pt notes the low back pain is so chronic, he'd like to focus more on the shoulder pain. Prior Treatments and Tests Lumbar MRI: IMPRESSION: 1. Stable mild lower lumbar spine degenerative disc disease as described above. 2. Again seen pars interarticularis defects at L5-S1. per Song Arthur M.D. on 03/28/2024 Shoulder x-ray: IMPRESSION: 1 . No acute fracture or dislocation of the left shoulder. 2. Punctate subcutaneous metallic debris around the lateral aspect of the shoulder. Barry Jean M.D. on 04/01/2024 Lumbar x-ray: IMPRESSION: Mild bilateral L4-L5 foraminal narrowing with bilateral L5- S1 pars interarticularis defects. per Barry Jean M.D. on 06/04/2024 Treatment Goals Patient/Caregiver Goals Decrease shoulder pain PT-OP-C Subjective Start: 07/25/24 13:52 Freq: Status: Active Protocol: Document 07/25/24 12:20 DCW (Rec: 07/25/24 14:27 DCW [id number]) OP-PT Subjective Patient Comments Patient Comments Pt notes he largely just pushes through pain Patient Reported Progress Worse Patient Questionnaires Oswestry Low Back Index Oswestry Score 25/50 = 50% Oswestry Impairment 40 to 59% Impaired (Score 40- 59) Quick Dash- Upper Extremity Quick Dash UE Score 50% Quick Dash UE Impairment 40 to 59% Impaired (Score 40- 59) PT-OP-F Manual Assessment Start: 07/25/24 13:52 Freq: Status: Active Protocol: Document 07/25/24 12:20 DCW (Rec: 07/25/24 14:27 DCW [id number]) Manual Assessments Soft Tissue Assessment Soft Tissue Mobility Assessment Mild tenderness to palpation along subacromial space Joint Mobility Assessment Joint Mobility Assessment Passive shoulder ROM largely WNL and pain-free PT-OP-J Posture/Palpation/Skin Start: 07/25/24 14:28 Freq: Status: Active Protocol: Document 07/25/24 12:20 DCW (Rec: 07/25/24 14:28 DCW [id number]) Posture Evaluation Position Sitting Shoulder Posture (L) Rounded,(L) Forward Scapula Posture (L) Protracted PT-OP-L Special Tests Start: 07/25/24 13:52 Freq: Status: Active Protocol: Document 07/25/24 12:20 DCW (Rec: 07/25/24 14:27 DCW [id number]) Special Tests Shoulder Special Tests Passive ER Rotator Cuff Test Results Negative Painful Arc Test Results Positive Left Lift-Off Rotator Cuff Test Results Negative Jean-Baptiste Zuhair Impingement Test Results Strongly Positive Left Grind Labrum Test Results Negative Empty Can Test Results Strongly Positive Left Belly Press Test Results Positive Left Anterior Draw Test Results Negative AC Joint Compression Test Results Negative PT-OP-M Strength Start: 07/25/24 13:52 Freq: Status: Active Protocol: Document 07/25/24 12:20 DCW (Rec: 07/25/24 14:27 DCW [id number]) Shoulder Strength Shoulder Manual Muscle Testing Right Flexion 4+ Good+ Abduction (C5) 4+ Good+ External Rotation 4+ Good+ Internal Rotation 4+ Good+ Left Flexion 4+ Good+ Abduction (C5) 4+ Good+ External Rotation 4+ Good+ Internal Rotation 4+ Good+ PT-OP-Q Treatments Start: 07/25/24 13:52 Freq: Status: Active Protocol: Document 07/25/24 12:20 DCW (Rec: 07/25/24 14:27 DCW [id number]) Therapeutic Exercises Supine Exercises Serratus Punch Supine Exercise Name Serratus Punch Side left Standing Exercises Pallof Press Standing Exercise Name Pallof Press Side bilateral Rows Standing Exercise Name Rows Side bilateral Resistance Lv 5 PT-OP-T Assessment and Plan Start: 07/25/24 13:52 Freq: Status: Active Protocol: Document 07/25/24 12:20 DCW (Rec: 07/25/24 14:27 DCW [id number]) Physical Therapy Assessment Rehab Potential Rehabilitation Potential Good Evaluation Complexity Number of Personal Factors/Comorbidities 3 or More Number of Body Systems Impaired 4 or More Clinical Presentation at Evaluation Unstable Impairments Impairments Functional Activities, Functional Mobility,Pain, Posture,Soft Tissue Mobility, Strength Goals One Impairment Pt does not have an appropriate Home Exercise Program Short Term Goal (STG) Pt to be independent and compliant with an appropriate HEP STG Duration 08/25/24 Three Impairment Pt notes returning difficulty of using left arm to close truck door Impairment . [facility] Goal (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 LTG Duration 09/24/24 Two Impairment Strongly positive left Empty Can test Impairment . [facility] Goal (LTG) Pt to demonstrate decreased inflammation in left shoulder by presenting with negative Empty Can and Jean-Baptiste-Zuhair tests LTG Duration 09/24/24 Assessment Summary Assessment Pt presents with signs and symptoms consistent with referring diagnosis of likely shoulder bursitis and potential subacromial impingement. Pt does present with a slightly forward left shoulder and abduction of his left scapula, decreasing subacromial space. Pt additionally experiencing complications from long- standing history of low back dysfunction. Pt will likely benefit from skilled therapy focusing on improving functional mobility of his left shoulder, core strengthening, pain control, posture training, and scapular repositioning. Physical Therapy Plan Frequency and Duration Frequency of Treatment 1x/Week Plan of Care Start Date 07/25/24 Plan of Care End Date 09/24/24 Therapeutic Interventions Therapeutic Interventions Home Exercise Program,Joint Mobilizations,Manual Therapy, Neuromuscular Re-education, Patient/Caregiver Education, Self-Care/Home Management,Soft Tissue Mobilization,Taping, Therapeutic Activities, Therapeutic Exercises Modalities Cold Pack/Ice Massage,Hot Packs,Ultrasound Next Visit Focus/Plan Next Note Type Treatment Note Next Visit Plan Shoulder mobility/ strengthening, pain control
--- NOTE | 2024-08-01 16:04 | PT.OTN ---
Current Diagnoses Pain in left shoulder (08/01/24) Spondylolysis, lumbar region (08/01/24) Spondylosis without myelopathy or radiculopathy, lumbar region (08/01/24) Low back pain, unspecified (08/01/24) Impingement syndrome of left shoulder (08/01/24) Physical Therapy Treatment Note PT-OP-A Visit Information Start: 07/25/24 13:52 Freq: Status: Active Protocol: Document 08/01/24 15:15 DCW (Rec: 08/01/24 16:04 DCW [id number]) Out-Patient Physical Therapy Visit Information Visit Information Visit Type Treatment Note Visit Start Time 15:15 Visit Stop Time 16:00 Visit Number 2 Number of MECHANIC ASSISTANT Visits 0 Evaluation Information Evaluation Date 07/25/24 PT-OP-B Current Condition Start: 07/25/24 13:52 Freq: Status: Active Protocol: Document 07/25/24 12:20 DCW (Rec: 07/25/24 14:27 DCW [id number]) Current Condition History of Current Condition Onset Date Five month history Current Complaints Shoulder pain, Low back pain History of Current Condition Pt is a 44 year old male presenting with a five month history of left shoulder pain. Reports insidious onset, started out just a little sore , was an inconvenience, but worsened over time, getting ot the point where he was unable to reach out and close his truck door. Received a steroid injection in March, reports it helped for a week or two, but then slowly began worsening again. It is still not as bad as it was at its worst, but is still quite sore . Pt notes that the pain makes it so there's a lot I don't want to do because of the shoulder, but I have to do it, so I just force it. Pt notes that he has a lot of PTSD/ anxiety related symptoms, one of which is difficulty defining timelines, so all his stated timelines are self- admittedly approximations. Does note a long-standing history of low back pain, which involves pars defects and reported history of spina bifida in L3-5. Pt reports he was undergoing nerve ablations every 3-6 months, but then switched doctors, and was told it should be lasting longer, so he underwent a different procedure, which seems to have eliminated a majority of his radicular symptoms. Pt notes the low back pain is so chronic, he'd like to focus more on the shoulder pain. Prior Treatments and Tests Lumbar MRI: IMPRESSION: 1. Stable mild lower lumbar spine degenerative disc disease as described above. 2. Again seen pars interarticularis defects at L5-S1. per Song Arthur M.D. on 03/28/2024 Shoulder x-ray: IMPRESSION: 1 . No acute fracture or dislocation of the left shoulder. 2. Punctate subcutaneous metallic debris around the lateral aspect of the shoulder. Barry Jean M.D. on 04/01/2024 Lumbar x-ray: IMPRESSION: Mild bilateral L4-L5 foraminal narrowing with bilateral L5- S1 pars interarticularis defects. per Barry Jean M.D. on 06/04/2024 Treatment Goals Patient/Caregiver Goals Decrease shoulder pain PT-OP-C Subjective Start: 07/25/24 13:52 Freq: Status: Active Protocol: Document 08/01/24 15:15 DCW (Rec: 08/01/24 16:04 DCW [id number]) OP-PT Subjective Patient Comments Patient Comments Pt reports he was pretty sore for a few days after eval, but then felt better until the day before yesterday, when he was mowing a ditch. PT-OP-F Manual Assessment Start: 07/25/24 13:52 Freq: Status: Active Protocol: Document 07/25/24 12:20 DCW (Rec: 07/25/24 14:27 DCW [id number]) Manual Assessments Soft Tissue Assessment Soft Tissue Mobility Assessment Mild tenderness to palpation along subacromial space Joint Mobility Assessment Joint Mobility Assessment Passive shoulder ROM largely WNL and pain-free PT-OP-J Posture/Palpation/Skin Start: 07/25/24 14:28 Freq: Status: Active Protocol: Document 07/25/24 12:20 DCW (Rec: 07/25/24 14:28 DCW [id number]) Posture Evaluation Position Sitting Shoulder Posture (L) Rounded,(L) Forward Scapula Posture (L) Protracted PT-OP-L Special Tests Start: 07/25/24 13:52 Freq: Status: Active Protocol: Document 07/25/24 12:20 DCW (Rec: 07/25/24 14:27 DCW [id number]) Special Tests Shoulder Special Tests Passive ER Rotator Cuff Test Results Negative Painful Arc Test Results Positive Left Lift-Off Rotator Cuff Test Results Negative Jean-Baptiste Zuhair Impingement Test Results Strongly Positive Left Grind Labrum Test Results Negative Empty Can Test Results Strongly Positive Left Belly Press Test Results Positive Left Anterior Draw Test Results Negative AC Joint Compression Test Results Negative PT-OP-M Strength Start: 07/25/24 13:52 Freq: Status: Active Protocol: Document 07/25/24 12:20 DCW (Rec: 07/25/24 14:27 DCW [id number]) Shoulder Strength Shoulder Manual Muscle Testing Right Flexion 4+ Good+ Abduction (C5) 4+ Good+ External Rotation 4+ Good+ Internal Rotation 4+ Good+ Left Flexion 4+ Good+ Abduction (C5) 4+ Good+ External Rotation 4+ Good+ Internal Rotation 4+ Good+ PT-OP-Q Treatments Start: 07/25/24 13:52 Freq: Status: Active Protocol: Document 08/01/24 15:15 DCW (Rec: 08/01/24 16:04 DCW [id number]) Gym Equipment Therapeutic Ball Pelvic Tilts Exercise Details Pelvic tilts Ball Size/Color Green - 65 cm Body Position Sitting Comments anterior/posterior pelvic tilts Bridging Exercise Details Bridging /c feet on ball Ball Size/Color Red - 55 cm Body Position Supine Comments Stopped d/t low back pain LTR Exercise Details LTR Ball Size/Color Red - 55 cm Body Position Supine Therapeutic Exercises Prone Exercises Rows Prone Exercise Name Prone Rows Side left Resistance 5# I's, Y's, T's Prone Exercise Name Prone I's, Y's, T's - flexion, horizontal abduction, extension Side left Resistance 3# Reps/Minutes x10 Sidelying Exercises Open Book Sidelying Exercise Name Open Book Side left Standing Exercises Pec Stretch Standing Exercise Name Pec Stretch Side left Manual Therapy Treatment Consent Patient gave verbal consent for manual Yes treatment Soft Tissue Mobilization Lumbar Body Location Lumbar Paraspinals Mobilization Type Sustained Pressure,Trigger Point Release Body Position Sitting Joint Mobilizations Scapulothoracic Joint L Scapulothoracic Direction lateral Grade III PT-OP-T Assessment and Plan Start: 07/25/24 13:52 Freq: Status: Active Protocol: Document 08/01/24 15:15 DCW (Rec: 08/01/24 16:04 DCW [id number]) Physical Therapy Assessment Impairments Impairments Functional Activities, Functional Mobility,Pain, Posture,Soft Tissue Mobility, Strength Goals One Impairment Pt does not have an appropriate Home Exercise Program Short Term Goal (STG) Pt to be independent and compliant with an appropriate HEP STG Duration 08/25/24 Three Impairment Pt notes returning difficulty of using left arm to close truck door Halfway Goal (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 LTG Duration 09/24/24 Two Impairment Strongly positive left Empty Can test Mathematics Instructor Goal (LTG) Pt to demonstrate decreased inflammation in left shoulder by presenting with negative Empty Can and Jean-Baptiste-Zuhair tests LTG Duration 09/24/24 Assessment Summary Assessment Pt tolerated treatment fairly well today, although mildly limited secondary to moderate low back pain with most activity. Added pec stretch and Prone I's, Y's, T's to HEP . Pt in agreement with plan. Physical Therapy Plan Frequency and Duration Frequency of Treatment 1x/Week Plan of Care Start Date 07/25/24 Plan of Care End Date 09/24/24 Therapeutic Interventions Therapeutic Interventions Home Exercise Program,Joint Mobilizations,Manual Therapy, Neuromuscular Re-education, Patient/Caregiver Education, Self-Care/Home Management,Soft Tissue Mobilization,Taping, Therapeutic Activities, Therapeutic Exercises Modalities Cold Pack/Ice Massage,Hot Packs,Ultrasound Next Visit Focus/Plan Next Note Type Treatment Note Next Visit Plan Shoulder mobility/ strengthening, pain control
--- NOTE | 2024-08-15 13:46 | PT.OTN ---
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) Low back pain, unspecified (08/15/24) Impingement syndrome of left shoulder (08/15/24) Physical Therapy Treatment Note PT-OP-A Visit Information Start: 07/25/24 13:52 Freq: Status: Active Protocol: Document 08/15/24 13:03 SP (Rec: 08/15/24 13:47 SP Laptop) Out-Patient Physical Therapy Visit Information Visit Information Visit Type Treatment Note Visit Start Time 13:03 Visit Stop Time 13:46 Visit Number 3 Number of BUSINESS PROCESS ENGINEER Visits 1 Evaluation Information Evaluation Date 07/25/24 PT-OP-B Current Condition Start: 07/25/24 13:52 Freq: Status: Active Protocol: Document 07/25/24 12:20 DCW (Rec: 07/25/24 14:27 DCW [id number]) Current Condition History of Current Condition Onset Date Five month history Current Complaints Shoulder pain, Low back pain History of Current Condition Pt is a 44 year old male presenting with a five month history of left shoulder pain. Reports insidious onset, started out just a little sore , was an inconvenience, but worsened over time, getting ot the point where he was unable to reach out and close his truck door. Received a steroid injection in March, reports it helped for a week or two, but then slowly began worsening again. It is still not as bad as it was at its worst, but is still quite sore . Pt notes that the pain makes it so there's a lot I don't want to do because of the shoulder, but I have to do it, so I just force it. Pt notes that he has a lot of PTSD/ anxiety related symptoms, one of which is difficulty defining timelines, so all his stated timelines are self- admittedly approximations. Does note a long-standing history of low back pain, which involves pars defects and reported history of spina bifida in L3-5. Pt reports he was undergoing nerve ablations every 3-6 months, but then switched doctors, and was told it should be lasting longer, so he underwent a different procedure, which seems to have eliminated a majority of his radicular symptoms. Pt notes the low back pain is so chronic, he'd like to focus more on the shoulder pain. Prior Treatments and Tests Lumbar MRI: IMPRESSION: 1. Stable mild lower lumbar spine degenerative disc disease as described above. 2. Again seen pars interarticularis defects at L5-S1. per Song Arthur M.D. on 03/28/2024 Shoulder x-ray: IMPRESSION: 1 . No acute fracture or dislocation of the left shoulder. 2. Punctate subcutaneous metallic debris around the lateral aspect of the shoulder. Barry Jean M.D. on 04/01/2024 Lumbar x-ray: IMPRESSION: Mild bilateral L4-L5 foraminal narrowing with bilateral L5- S1 pars interarticularis defects. per Barry Jean M.D. on 06/04/2024 Treatment Goals Patient/Caregiver Goals Decrease shoulder pain PT-OP-C Subjective Start: 07/25/24 13:52 Freq: Status: Active Protocol: Document 08/15/24 13:03 SP (Rec: 08/15/24 13:47 SP Laptop) OP-PT Subjective Patient Comments Patient Comments Pt reports his back had more pain the next day after last tx and continued into today that hasn't has as much prior to tx and hasnt' been able to do normal activities. He stated gets ablations in back every 4-6 months and thinking not want to focus on back activities right now. He reported pain in L shld was unable to do HEP. Did perform stretches with L shld could tolerate. He reports when wakes up in the am his L shoulder hurts, is an all over sleeper, he has to pull on L arm with R hand to relocate L shld then feels better. PT-OP-F Manual Assessment Start: 07/25/24 13:52 Freq: Status: Active Protocol: Document 07/25/24 12:20 DCW (Rec: 07/25/24 14:27 DCW [id number]) Manual Assessments Soft Tissue Assessment Soft Tissue Mobility Assessment Mild tenderness to palpation along subacromial space Joint Mobility Assessment Joint Mobility Assessment Passive shoulder ROM largely WNL and pain-free PT-OP-J Posture/Palpation/Skin Start: 07/25/24 14:28 Freq: Status: Active Protocol: Document 07/25/24 12:20 DCW (Rec: 07/25/24 14:28 DCW [id number]) Posture Evaluation Position Sitting Shoulder Posture (L) Rounded,(L) Forward Scapula Posture (L) Protracted PT-OP-L Special Tests Start: 07/25/24 13:52 Freq: Status: Active Protocol: Document 07/25/24 12:20 DCW (Rec: 07/25/24 14:27 DCW [id number]) Special Tests Shoulder Special Tests Passive ER Rotator Cuff Test Results Negative Painful Arc Test Results Positive Left Lift-Off Rotator Cuff Test Results Negative Jean-Baptiste Zuhair Impingement Test Results Strongly Positive Left Grind Labrum Test Results Negative Empty Can Test Results Strongly Positive Left Belly Press Test Results Positive Left Anterior Draw Test Results Negative AC Joint Compression Test Results Negative PT-OP-M Strength Start: 07/25/24 13:52 Freq: Status: Active Protocol: Document 07/25/24 12:20 DCW (Rec: 07/25/24 14:27 DCW [id number]) Shoulder Strength Shoulder Manual Muscle Testing Right Flexion 4+ Good+ Abduction (C5) 4+ Good+ External Rotation 4+ Good+ Internal Rotation 4+ Good+ Left Flexion 4+ Good+ Abduction (C5) 4+ Good+ External Rotation 4+ Good+ Internal Rotation 4+ Good+ PT-OP-Q Treatments Start: 07/25/24 13:52 Freq: Status: Active Protocol: Document 08/15/24 13:03 SP (Rec: 08/15/24 13:47 SP Laptop) Therapeutic Exercises Prone Exercises Rows Prone Exercise Name Prone Rows Side left Resistance 5# DB Reps/Minutes x15 I's, Y's, T's Prone Exercise Name Prone I's, Y's, T's - flexion, horizontal abduction, extension Side left Resistance 3.3# pink ball (DB unavailable ) Reps/Minutes x15 each Comments 4/10 over anterior L shld during ex, not worse than normal Standing Exercises Rows Standing Exercise Name Rows Side bilateral Resistance Lv 5 Reps/Minutes x15 Manual Therapy Treatment Consent Patient gave verbal consent for manual Yes treatment Soft Tissue Mobilization L shld Body Location pec major, prox bicep, Deltoid , prox tricep, suprasp, infrasp, Mobilization Type Rolling,Sustained Pressure, Other Body Position supine and SL Comments gentle STMs, MWM humeral IR/ER , elbow flex/ext. Inferior glide into FF OH supine Joint Mobilizations Scapulothoracic Joint L Scapulothoracic Grade II Comments posterior and inferior glide Taping Ktaping Body Location L shld Treatment Focus humeral posterior glide, scapular retraction/depression support Type of Tape Kinesio Tape Skin Inspection normal intact and coloring skin Comments 3 strips: 1. anterior proximal humeral head lateral to mid posterior scap 2. Y strip distal deltoid superior split ant/post AC jt to upper trap 3. Deltoid posterior and inferior to lower angle of scap. PT-OP-T Assessment and Plan Start: 07/25/24 13:52 Freq: Status: Active Protocol: Document 08/15/24 13:03 SP (Rec: 08/15/24 13:47 SP Laptop) Physical Therapy Assessment Goals One Impairment Pt does not have an appropriate Home Exercise Program Short Term Goal (STG) Pt to be independent and compliant with an appropriate HEP STG Duration 08/25/24 Three Impairment Pt notes returning difficulty of using left arm to close truck door Correction Goal (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 LTG Duration 09/24/24 Two Impairment Strongly positive left Empty Can test Senior Firewall Engineer Goal (LTG) Pt to demonstrate decreased inflammation in left shoulder by presenting with negative Empty Can and Jean-Baptiste-Zuhair tests LTG Duration 09/24/24 Assessment Summary Assessment Pt good tolerance to manual today with posterior glide and posterior chain strengthening with reports still some discomfort but not worse 4/10 than usual. Tactile cues for scapular retraction during prone ther ex improved stability. Trialed Ktaping with good response after donned arms feels more supported. Instruction wearing 2-4 hrs if ok then can keep on up to 4 days, remove easlily if adverse affects red /itching/tingling toskin, able to wear in shower, verbalized understanding. Physical Therapy Plan Frequency and Duration Frequency of Treatment 1x/Week Plan of Care Start Date 07/25/24 Plan of Care End Date 09/24/24 Therapeutic Interventions Therapeutic Interventions Home Exercise Program,Joint Mobilizations,Manual Therapy, Neuromuscular Re-education, Patient/Caregiver Education, Self-Care/Home Management,Soft Tissue Mobilization,Taping, Therapeutic Activities, Therapeutic Exercises Modalities Cold Pack/Ice Massage,Hot Packs,Ultrasound Next Visit Focus/Plan Next Note Type Treatment Note Next Visit Plan Recheck response to Ktaping. Recheck HEP add over tball next tx if ok and has ball. Add L Shoulder RTC ex. POC: mobility/strengthening, pain control
--- NOTE | 2024-08-22 13:43 | PT.OTN ---
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 Visit Start Time 13:03 Visit Stop Time 13:43 Visit Number 4 Number of PHOTOGRAPHER'S ASSISTANT Visits 2 Evaluation Information Evaluation Date 07/25/24 PT-OP-B Current Condition Start: 07/25/24 13:52 Freq: Status: Active Protocol: Document 07/25/24 12:20 DCW (Rec: 07/25/24 14:27 DCW [id number]) Current Condition History of Current Condition Onset Date Five month history Current Complaints Shoulder pain, Low back pain History of Current Condition Pt is a 44 year old male presenting with a five month history of left shoulder pain. Reports insidious onset, started out just a little sore , was an inconvenience, but worsened over time, getting ot the point where he was unable to reach out and close his truck door. Received a steroid injection in March, reports it helped for a week or two, but then slowly began worsening again. It is still not as bad as it was at its worst, but is still quite sore . Pt notes that the pain makes it so there's a lot I don't want to do because of the shoulder, but I have to do it, so I just force it. Pt notes that he has a lot of PTSD/ anxiety related symptoms, one of which is difficulty defining timelines, so all his stated timelines are self- admittedly approximations. Does note a long-standing history of low back pain, which involves pars defects and reported history of spina bifida in L3-5. Pt reports he was undergoing nerve ablations every 3-6 months, but then switched doctors, and was told it should be lasting longer, so he underwent a different procedure, which seems to have eliminated a majority of his radicular symptoms. Pt notes the low back pain is so chronic, he'd like to focus more on the shoulder pain. Prior Treatments and Tests Lumbar MRI: IMPRESSION: 1. Stable mild lower lumbar spine degenerative disc disease as described above. 2. Again seen pars interarticularis defects at L5-S1. per Song Arthur M.D. on 03/28/2024 Shoulder x-ray: IMPRESSION: 1 . No acute fracture or dislocation of the left shoulder. 2. Punctate subcutaneous metallic debris around the lateral aspect of the shoulder. Barry Jean M.D. on 04/01/2024 Lumbar x-ray: IMPRESSION: Mild bilateral L4-L5 foraminal narrowing with bilateral L5- S1 pars interarticularis defects. per Barry Jean M.D. on 06/04/2024 Treatment Goals Patient/Caregiver Goals Decrease shoulder pain PT-OP-C Subjective Start: 07/25/24 13:52 Freq: Status: Active Protocol: Document 08/22/24 13:03 SP (Rec: 08/22/24 14:14 SP [id number]) OP-PT Subjective Patient Comments Patient Comments Pt reports the Ktaping helped support L GH Jt wore til the next day, hasn't had that popping feeling since. There is very faint pink coloring on skin. Still feels loose in Jt but not pop feeling. Is feeling more of an ache on back of GH Jt down arm approx posterior deltoid. 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 PT-OP-F Manual Assessment Start: 07/25/24 13:52 Freq: Status: Active Protocol: Document 07/25/24 12:20 DCW (Rec: 07/25/24 14:27 DCW [id number]) Manual Assessments Soft Tissue Assessment Soft Tissue Mobility Assessment Mild tenderness to palpation along subacromial space Joint Mobility Assessment Joint Mobility Assessment Passive shoulder ROM largely WNL and pain-free PT-OP-J Posture/Palpation/Skin Start: 07/25/24 14:28 Freq: Status: Active Protocol: Document 07/25/24 12:20 DCW (Rec: 07/25/24 14:28 DCW [id number]) Posture Evaluation Position Sitting Shoulder Posture (L) Rounded,(L) Forward Scapula Posture (L) Protracted PT-OP-L Special Tests Start: 07/25/24 13:52 Freq: Status: Active Protocol: Document 07/25/24 12:20 DCW (Rec: 07/25/24 14:27 DCW [id number]) Special Tests Shoulder Special Tests Passive ER Rotator Cuff Test Results Negative Painful Arc Test Results Positive Left Lift-Off Rotator Cuff Test Results Negative Jean-Baptiste Zuhair Impingement Test Results Strongly Positive Left Grind Labrum Test Results Negative Empty Can Test Results Strongly Positive Left Belly Press Test Results Positive Left Anterior Draw Test Results Negative AC Joint Compression Test Results Negative PT-OP-M Strength Start: 07/25/24 13:52 Freq: Status: Active Protocol: Document 07/25/24 12:20 DCW (Rec: 07/25/24 14:27 DCW [id number]) Shoulder Strength Shoulder Manual Muscle Testing Right Flexion 4+ Good+ Abduction (C5) 4+ Good+ External Rotation 4+ Good+ Internal Rotation 4+ Good+ Left Flexion 4+ Good+ Abduction (C5) 4+ Good+ External Rotation 4+ Good+ Internal Rotation 4+ Good+ PT-OP-Q Treatments Start: 07/25/24 13:52 Freq: Status: Active Protocol: Document 08/22/24 13:03 SP (Rec: 08/22/24 14:14 SP [id number]) Therapeutic Exercises Supine Exercises Over foam Roller Supine Exercise Name initiated in PT: FF, HABD, Y- provided HO Side bilateral Resistance 5# DB vs [place] TB #3 Equipment Used foam roller along spine- cued can use noodle Reps/Minutes 15 reps each Comments cued arms not passed body Serratus Punch Supine Exercise Name Serratus Punch Side left Resistance 5# DB Equipment Used foam roller along spine Reps/Minutes 10 reps each Comments cued LT fac with protraction and eccentric return Prone Exercises Rows Prone Exercise Name Prone Rows Side left Resistance 5# DB Reps/Minutes x15 I's, Y's, T's Prone Exercise Name Prone I's, Y's, T's - flexion, horizontal abduction, extension Side left Resistance 3.3# ball>5# DB Is (extension) , 3# DB T (HABD) & Y (palm toward floor) Reps/Minutes x15 each Comments tactile cue rhomboid fac, no pain but little achy over posterior AC jt. Sidelying Exercises Open Book Sidelying Exercise Name Open Book Side left Sitting Exercises Shld ER Sitting Exercise Name trialed in PT for ER RTC strengthening Side bilateral Resistance TB #3 [place] Reps/Minutes 2x10 Comments cued for head up, elbow tucked in, scap retract, humeral ER gentle effort Standing Exercises REverse Fly Standing Exercise Name added to HEP- phone pt pic Side bilateral Resistance TB #3 [place] Reps/Minutes 15 reps Comments cued head up, elbows bent W- no pain Rows Standing Exercise Name Rows Side bilateral Resistance Lv 5 dark green Reps/Minutes x15 Comments cued head up- no pain Manual Therapy Treatment Consent Patient gave verbal consent for manual Yes treatment Soft Tissue Mobilization L shld Body Location pec major, prox bicep, Deltoid , prox tricep, distal infrasp , Mobilization Type Rolling,Sustained Pressure, Other Body Position Supine Comments gentle STMs, MWM humeral IR/ER , elbow flex/ext. Inferior glide into FF OH supine Joint Mobilizations L GH Jt Direction Posterior glide Grade II Body Position Supine PT-OP-T Assessment and Plan Start: 07/25/24 13:52 Freq: Status: Active Protocol: Document 08/22/24 13:03 SP (Rec: 08/22/24 14:14 SP [id number]) Physical Therapy Assessment Goals One Impairment Pt does not have an appropriate Home Exercise Program Short Term Goal (STG) Pt to be independent and compliant with an appropriate HEP STG Duration 08/25/24 Three Impairment Pt notes returning difficulty of using left arm to close truck door Hand Laster Goal (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 LTG Duration 09/24/24 Two Impairment Strongly positive left Empty Can test Fpc Goal (LTG) Pt to demonstrate decreased inflammation in left shoulder by presenting with negative Empty Can and Jean-Baptiste-Zuhair tests LTG Duration 09/24/24 Assessment Summary Assessment Pt responded well to manual and resisted strengthening multiple positions today. Reports only ache in L shld and not pain today, no LBP. Cues for LT facilitation during initiated shld ER seated then progressed to reverse fly in standing with no pain to progress posterior RTC strengthening. Pt reports has bad back so wants to hold off on progressing over ball vs prone on table. Physical Therapy Plan Frequency and Duration Frequency of Treatment 1x/Week Plan of Care Start Date 07/25/24 Plan of Care End Date 09/24/24 Therapeutic Interventions Therapeutic Interventions Home Exercise Program,Joint Mobilizations,Manual Therapy, Neuromuscular Re-education, Patient/Caregiver Education, Self-Care/Home Management,Soft Tissue Mobilization,Taping, Therapeutic Activities, Therapeutic Exercises Modalities Cold Pack/Ice Massage,Hot Packs,Ultrasound Next Visit Focus/Plan Next Note Type Treatment Note Next Visit Plan Recheck reverse fly and ER last tx. POC: mobility/strengthening, pain control
--- NOTE | 2024-08-26 15:56 | PT.OTN ---
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) Low back pain, unspecified (08/26/24) Impingement syndrome of left shoulder (08/26/24) Physical Therapy Treatment Note PT-OP-A Visit Information Start: 07/25/24 13:52 Freq: Status: Active Protocol: Document 08/26/24 15:15 DCW (Rec: 08/26/24 15:56 DCW [id number]) Out-Patient Physical Therapy Visit Information Visit Information Visit Type Treatment Note Visit Start Time 15:15 Visit Stop Time 15:50 Visit Number 5 Number of PRODUCTION TEAM MEMBER Visits 0 Evaluation Information Evaluation Date 07/25/24 PT-OP-B Current Condition Start: 07/25/24 13:52 Freq: Status: Active Protocol: Document 07/25/24 12:20 DCW (Rec: 07/25/24 14:27 DCW [id number]) Current Condition History of Current Condition Onset Date Five month history Current Complaints Shoulder pain, Low back pain History of Current Condition Pt is a 44 year old male presenting with a five month history of left shoulder pain. Reports insidious onset, started out just a little sore , was an inconvenience, but worsened over time, getting ot the point where he was unable to reach out and close his truck door. Received a steroid injection in March, reports it helped for a week or two, but then slowly began worsening again. It is still not as bad as it was at its worst, but is still quite sore . Pt notes that the pain makes it so there's a lot I don't want to do because of the shoulder, but I have to do it, so I just force it. Pt notes that he has a lot of PTSD/ anxiety related symptoms, one of which is difficulty defining timelines, so all his stated timelines are self- admittedly approximations. Does note a long-standing history of low back pain, which involves pars defects and reported history of spina bifida in L3-5. Pt reports he was undergoing nerve ablations every 3-6 months, but then switched doctors, and was told it should be lasting longer, so he underwent a different procedure, which seems to have eliminated a majority of his radicular symptoms. Pt notes the low back pain is so chronic, he'd like to focus more on the shoulder pain. Prior Treatments and Tests Lumbar MRI: IMPRESSION: 1. Stable mild lower lumbar spine degenerative disc disease as described above. 2. Again seen pars interarticularis defects at L5-S1. per Song Arthur M.D. on 03/28/2024 Shoulder x-ray: IMPRESSION: 1 . No acute fracture or dislocation of the left shoulder. 2. Punctate subcutaneous metallic debris around the lateral aspect of the shoulder. Barry Jean M.D. on 04/01/2024 Lumbar x-ray: IMPRESSION: Mild bilateral L4-L5 foraminal narrowing with bilateral L5- S1 pars interarticularis defects. per Barry Jean M.D. on 06/04/2024 Treatment Goals Patient/Caregiver Goals Decrease shoulder pain PT-OP-C Subjective Start: 07/25/24 13:52 Freq: Status: Active Protocol: Document 08/26/24 15:15 DCW (Rec: 08/26/24 15:56 DCW [id number]) OP-PT Subjective Patient Comments Patient Comments Pt notes he is really struggling with pain, he feels he has some sort of inflammation issue going on, new symptoms, including basically full body pain in all his joints. Left shoulder has been bothering him more since last PT session PT-OP-F Manual Assessment Start: 07/25/24 13:52 Freq: Status: Active Protocol: Document 07/25/24 12:20 DCW (Rec: 07/25/24 14:27 DCW [id number]) Manual Assessments Soft Tissue Assessment Soft Tissue Mobility Assessment Mild tenderness to palpation along subacromial space Joint Mobility Assessment Joint Mobility Assessment Passive shoulder ROM largely WNL and pain-free PT-OP-J Posture/Palpation/Skin Start: 07/25/24 14:28 Freq: Status: Active Protocol: Document 07/25/24 12:20 DCW (Rec: 07/25/24 14:28 DCW [id number]) Posture Evaluation Position Sitting Shoulder Posture (L) Rounded,(L) Forward Scapula Posture (L) Protracted PT-OP-L Special Tests Start: 07/25/24 13:52 Freq: Status: Active Protocol: Document 07/25/24 12:20 DCW (Rec: 07/25/24 14:27 DCW [id number]) Special Tests Shoulder Special Tests Passive ER Rotator Cuff Test Results Negative Painful Arc Test Results Positive Left Lift-Off Rotator Cuff Test Results Negative Jean-Baptiste Zuhair Impingement Test Results Strongly Positive Left Grind Labrum Test Results Negative Empty Can Test Results Strongly Positive Left Belly Press Test Results Positive Left Anterior Draw Test Results Negative AC Joint Compression Test Results Negative PT-OP-M Strength Start: 07/25/24 13:52 Freq: Status: Active Protocol: Document 07/25/24 12:20 DCW (Rec: 07/25/24 14:27 DCW [id number]) Shoulder Strength Shoulder Manual Muscle Testing Right Flexion 4+ Good+ Abduction (C5) 4+ Good+ External Rotation 4+ Good+ Internal Rotation 4+ Good+ Left Flexion 4+ Good+ Abduction (C5) 4+ Good+ External Rotation 4+ Good+ Internal Rotation 4+ Good+ PT-OP-Q Treatments Start: 07/25/24 13:52 Freq: Status: Active Protocol: Document 08/26/24 15:15 DCW (Rec: 08/26/24 15:56 [facility] [id number]) Manual Therapy Treatment Consent Patient gave verbal consent for manual Yes treatment Soft Tissue Mobilization L shld Body Location pec major, prox bicep, Deltoid , prox tricep, distal infrasp , Mobilization Type Rolling,Sustained Pressure, Other Body Position Supine Comments gentle STMs, MWM humeral IR/ER , elbow flex/ext. Inferior glide into FF OH supine Joint Mobilizations L GH Jt Direction Posterior glide Grade II Body Position Supine PT-OP-T Assessment and Plan Start: 07/25/24 13:52 Freq: Status: Active Protocol: Document 08/26/24 15:15 DCW (Rec: 08/26/24 15:56 [facility] [id number]) Physical Therapy Assessment Goals One Impairment Pt does not have an appropriate Home Exercise Program Short Term Goal (STG) Pt to be independent and compliant with an appropriate HEP STG Duration 08/25/24 Three Impairment Pt notes returning difficulty of using left arm to close truck door Insurance Customer Service Specialist Goal (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 LTG Duration 09/24/24 Two Impairment Strongly positive left Empty Can test Long-Term Goal (LTG) Pt to demonstrate decreased inflammation in left shoulder by presenting with negative Empty Can and Jean-Baptiste-Zuhair tests LTG Duration 09/24/24 Assessment Summary Assessment Provided gentle manual treatment today only, pt very flared up at the moment, notes he goes through cycles of significantly increased inflammatory process, currently struggling more. Focus on decreased pain/ inflammation, strengthening as tolerated. Physical Therapy Plan Frequency and Duration Frequency of Treatment 1x/Week Plan of Care Start Date 07/25/24 Plan of Care End Date 09/24/24 Therapeutic Interventions Therapeutic Interventions Home Exercise Program,Joint Mobilizations,Manual Therapy, Neuromuscular Re-education, Patient/Caregiver Education, Self-Care/Home Management,Soft Tissue Mobilization,Taping, Therapeutic Activities, Therapeutic Exercises Modalities Cold Pack/Ice Massage,Hot Packs,Ultrasound Next Visit Focus/Plan Next Note Type Treatment Note Next Visit Plan Recheck reverse fly and ER last tx. POC: mobility/strengthening, pain control
--- NOTE | 2024-09-02 08:13 | PT.OTN ---
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 Visit Start Time 07:32 Visit Stop Time 08:13 Visit Number 6 Number of LONG CHAIN QUILLER TENDER Visits 1 Evaluation Information Evaluation Date 07/25/24 PT-OP-B Current Condition Start: 07/25/24 13:52 Freq: Status: Active Protocol: Document 07/25/24 12:20 DCW (Rec: 07/25/24 14:27 DCW [id number]) Current Condition History of Current Condition Onset Date Five month history Current Complaints Shoulder pain, Low back pain History of Current Condition Pt is a 44 year old male presenting with a five month history of left shoulder pain. Reports insidious onset, started out just a little sore , was an inconvenience, but worsened over time, getting ot the point where he was unable to reach out and close his truck door. Received a steroid injection in March, reports it helped for a week or two, but then slowly began worsening again. It is still not as bad as it was at its worst, but is still quite sore . Pt notes that the pain makes it so there's a lot I don't want to do because of the shoulder, but I have to do it, so I just force it. Pt notes that he has a lot of PTSD/ anxiety related symptoms, one of which is difficulty defining timelines, so all his stated timelines are self- admittedly approximations. Does note a long-standing history of low back pain, which involves pars defects and reported history of spina bifida in L3-5. Pt reports he was undergoing nerve ablations every 3-6 months, but then switched doctors, and was told it should be lasting longer, so he underwent a different procedure, which seems to have eliminated a majority of his radicular symptoms. Pt notes the low back pain is so chronic, he'd like to focus more on the shoulder pain. Prior Treatments and Tests Lumbar MRI: IMPRESSION: 1. Stable mild lower lumbar spine degenerative disc disease as described above. 2. Again seen pars interarticularis defects at L5-S1. per Song Arthur M.D. on 03/28/2024 Shoulder x-ray: IMPRESSION: 1 . No acute fracture or dislocation of the left shoulder. 2. Punctate subcutaneous metallic debris around the lateral aspect of the shoulder. Barry Jean M.D. on 04/01/2024 Lumbar x-ray: IMPRESSION: Mild bilateral L4-L5 foraminal narrowing with bilateral L5- S1 pars interarticularis defects. per Barry Jean M.D. on 06/04/2024 Treatment Goals Patient/Caregiver Goals Decrease shoulder pain PT-OP-C Subjective Start: 07/25/24 13:52 Freq: Status: Active Protocol: Document 09/02/24 07:32 PG (Rec: 09/02/24 08:28 PG [id number]) OP-PT Subjective Patient Comments Patient Comments Pt is feeling better compared to last week. Is very busy today and would like to focus less on strengthening in order to avoid further inflammation . Pt states he thinks tape was helpful but does have slight skin light pink sensitivity since lst applied 08/15. Pt states when pain and anxiety goes up, his short term memory struggles. Working on core outside of PT, teetering with pain and anxiety management. Taking medication to help. Arrives with a particular body pillow (Loopcam shoulder Relief System - Item # [id number] S/M) which feels will help give L shld and trunk support for jt support and thus decrease pain . He states PT suggested knowing the ktaping helped his shld less pop out feeling maybe a shld brace might be helpful and supportive for ADLs. Pt requesting for PT to write a note to Dr Mederos to write something [facility] with suggestion benefits of this pillow and L shld brace. PT-OP-F Manual Assessment Start: 07/25/24 13:52 Freq: Status: Active Protocol: Document 07/25/24 12:20 DCW (Rec: 07/25/24 14:27 DCW [id number]) Manual Assessments Soft Tissue Assessment Soft Tissue Mobility Assessment Mild tenderness to palpation along subacromial space Joint Mobility Assessment Joint Mobility Assessment Passive shoulder ROM largely WNL and pain-free PT-OP-J Posture/Palpation/Skin Start: 07/25/24 14:28 Freq: Status: Active Protocol: Document 07/25/24 12:20 DCW (Rec: 07/25/24 14:28 DCW [id number]) Posture Evaluation Position Sitting Shoulder Posture (L) Rounded,(L) Forward Scapula Posture (L) Protracted PT-OP-L Special Tests Start: 07/25/24 13:52 Freq: Status: Active Protocol: Document 07/25/24 12:20 DCW (Rec: 07/25/24 14:27 DCW [id number]) Special Tests Shoulder Special Tests Passive ER Rotator Cuff Test Results Negative Painful Arc Test Results Positive Left Lift-Off Rotator Cuff Test Results Negative Jean-Baptiste Zuhair Impingement Test Results Strongly Positive Left Grind Labrum Test Results Negative Empty Can Test Results Strongly Positive Left Belly Press Test Results Positive Left Anterior Draw Test Results Negative AC Joint Compression Test Results Negative PT-OP-M Strength Start: 07/25/24 13:52 Freq: Status: Active Protocol: Document 07/25/24 12:20 DCW (Rec: 07/25/24 14:27 DCW [id number]) Shoulder Strength Shoulder Manual Muscle Testing Right Flexion 4+ Good+ Abduction (C5) 4+ Good+ External Rotation 4+ Good+ Internal Rotation 4+ Good+ Left Flexion 4+ Good+ Abduction (C5) 4+ Good+ External Rotation 4+ Good+ Internal Rotation 4+ Good+ PT-OP-Q Treatments Start: 07/25/24 13:52 Freq: Status: Active Protocol: Document 09/02/24 07:32 PG (Rec: 09/02/24 08:28 PG [id number]) Therapeutic Exercises Sidelying Exercises Open Book Sidelying Exercise Name Open Book Side left Reps/Minutes x10 Comments cued to get thoracic rot, engage core, shldr jnt angle, palm facing Manual Therapy Treatment Soft Tissue Mobilization L shld Body Location pec major, prox bicep, Deltoid , prox tricep, distal infrasp , Mobilization Type Rolling,Sustained Pressure, Other Body Position Supine Comments gentle STMs, MWM humeral IR/ER , elbow flex/ext. Inferior glide into FF OH supine Joint Mobilizations L GH Jt Direction Posterior glide Grade II Body Position Supine Taping Ktaping Body Location L shld Treatment Focus humeral posterior glide, scapular retraction/depression support Type of Tape Kinesio Tape Skin Inspection normal intact and coloring skin Comments 3 strips: 1. anterior proximal humeral head lateral to mid posterior scap 2. Y strip distal deltoid superior split ant/post AC jt to upper trap 3. Deltoid posterior and inferior to lower angle of scap. PT-OP-T Assessment and Plan Start: 07/25/24 13:52 Freq: Status: Active Protocol: Document 09/02/24 07:32 PG (Rec: 09/02/24 08:28 PG [id number]) Physical Therapy Assessment Goals One Impairment Pt does not have an appropriate Home Exercise Program Short Term Goal (STG) Pt to be independent and compliant with an appropriate HEP STG Duration 08/25/24 Three Impairment Pt notes returning difficulty of using left arm to close truck door Shelter Goal (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 LTG Duration 09/24/24 Two Impairment Strongly positive left Empty Can test Auto Adjudication Specialist Goal (LTG) Pt to demonstrate decreased inflammation in left shoulder by presenting with negative Empty Can and Jean-Baptiste-Zuhair tests LTG Duration 09/24/24 Assessment Summary Assessment Continued to provide gentle manual treatment today and instructed pt in the open book stretch to decrease pain, work on mobility, ROM and avoid further increasing inflammation. LONG CHAIN QUILLER TENDER applied KT tape for increased stabilization of the g/h joint . Pt was educated to skin check where tape is applied and made aware of potential adverse effects and to remove if needed. Physical Therapy Plan Frequency and Duration Frequency of Treatment 1x/Week Plan of Care Start Date 07/25/24 Plan of Care End Date 09/24/24 Therapeutic Interventions Therapeutic Interventions Home Exercise Program,Joint Mobilizations,Manual Therapy, Neuromuscular Re-education, Patient/Caregiver Education, Self-Care/Home Management,Soft Tissue Mobilization,Taping, Therapeutic Activities, Therapeutic Exercises Modalities Cold Pack/Ice Massage,Hot Packs,Ultrasound Next Visit Focus/Plan Next Note Type Treatment Note Next Visit Plan Next: 30 day prog note, schedule more appointments. Check how pt reacted to KT taping, Recheck reverse fly and ER from two tx's ago. POC: mobility/strengthening, pain control
--- NOTE | 2024-09-10 08:15 | PT.OTN ---
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) Low back pain, unspecified (09/10/24) Impingement syndrome of left shoulder (09/10/24) Physical Therapy Treatment Note PT-OP-A Visit Information Start: 07/25/24 13:52 Freq: Status: Active Protocol: Document 09/10/24 07:32 SP (Rec: 09/10/24 08:21 SP [id number]) Out-Patient Physical Therapy Visit Information Visit Information Visit Type Treatment Note Visit Start Time 07:32 Visit Stop Time 08:15 Visit Number 7 Number of WALL TAPER HELPER Visits 2 PT-OP-B Current Condition Start: 07/25/24 13:52 Freq: Status: Active Protocol: Document 07/25/24 12:20 DCW (Rec: 07/25/24 14:27 DCW [id number]) Current Condition History of Current Condition Onset Date Five month history Current Complaints Shoulder pain, Low back pain History of Current Condition Pt is a 44 year old male presenting with a five month history of left shoulder pain. Reports insidious onset, started out just a little sore , was an inconvenience, but worsened over time, getting ot the point where he was unable to reach out and close his truck door. Received a steroid injection in March, reports it helped for a week or two, but then slowly began worsening again. It is still not as bad as it was at its worst, but is still quite sore . Pt notes that the pain makes it so there's a lot I don't want to do because of the shoulder, but I have to do it, so I just force it. Pt notes that he has a lot of PTSD/ anxiety related symptoms, one of which is difficulty defining timelines, so all his stated timelines are self- admittedly approximations. Does note a long-standing history of low back pain, which involves pars defects and reported history of spina bifida in L3-5. Pt reports he was undergoing nerve ablations every 3-6 months, but then switched doctors, and was told it should be lasting longer, so he underwent a different procedure, which seems to have eliminated a majority of his radicular symptoms. Pt notes the low back pain is so chronic, he'd like to focus more on the shoulder pain. Prior Treatments and Tests Lumbar MRI: IMPRESSION: 1. Stable mild lower lumbar spine degenerative disc disease as described above. 2. Again seen pars interarticularis defects at L5-S1. per Song Arthur M.D. on 03/28/2024 Shoulder x-ray: IMPRESSION: 1 . No acute fracture or dislocation of the left shoulder. 2. Punctate subcutaneous metallic debris around the lateral aspect of the shoulder. Barry Jean M.D. on 04/01/2024 Lumbar x-ray: IMPRESSION: Mild bilateral L4-L5 foraminal narrowing with bilateral L5- S1 pars interarticularis defects. per Barry Jean M.D. on 06/04/2024 Treatment Goals Patient/Caregiver Goals Decrease shoulder pain PT-OP-C Subjective Start: 07/25/24 13:52 Freq: Status: Active Protocol: Document 09/10/24 07:32 SP (Rec: 09/10/24 08:21 SP [id number]) OP-PT Subjective Patient Comments Patient Comments Pt reported his L shld hurting less today and over all but anxiety and pain limited him yesterday and couldn't focus on anything. Still having pain sleeping awaiting [facility] for pillow and shld strap to support positioning for activities. He feels can do core stuff on own now. He has been able to progress self home using a banded Iron Chest Master system that is portable with standing and planked dynamic pushups and no issues few days ago. He puts his back brace on if needed for stability while working arms. He reports can't memory challenged keep track of counting, more focused on form so does exercises to tiring and no pain. PT-OP-F Manual Assessment Start: 07/25/24 13:52 Freq: Status: Active Protocol: Document 07/25/24 12:20 DCW (Rec: 07/25/24 14:27 DCW [id number]) Manual Assessments Soft Tissue Assessment Soft Tissue Mobility Assessment Mild tenderness to palpation along subacromial space Joint Mobility Assessment Joint Mobility Assessment Passive shoulder ROM largely WNL and pain-free PT-OP-J Posture/Palpation/Skin Start: 07/25/24 14:28 Freq: Status: Active Protocol: Document 07/25/24 12:20 DCW (Rec: 07/25/24 14:28 DCW [id number]) Posture Evaluation Position Sitting Shoulder Posture (L) Rounded,(L) Forward Scapula Posture (L) Protracted PT-OP-L Special Tests Start: 07/25/24 13:52 Freq: Status: Active Protocol: Document 07/25/24 12:20 DCW (Rec: 07/25/24 14:27 DCW [id number]) Special Tests Shoulder Special Tests Passive ER Rotator Cuff Test Results Negative Painful Arc Test Results Positive Left Lift-Off Rotator Cuff Test Results Negative Jean-Baptiste Zuhair Impingement Test Results Strongly Positive Left Grind Labrum Test Results Negative Empty Can Test Results Strongly Positive Left Belly Press Test Results Positive Left Anterior Draw Test Results Negative AC Joint Compression Test Results Negative PT-OP-M Strength Start: 07/25/24 13:52 Freq: Status: Active Protocol: Document 07/25/24 12:20 DCW (Rec: 07/25/24 14:27 DCW [id number]) Shoulder Strength Shoulder Manual Muscle Testing Right Flexion 4+ Good+ Abduction (C5) 4+ Good+ External Rotation 4+ Good+ Internal Rotation 4+ Good+ Left Flexion 4+ Good+ Abduction (C5) 4+ Good+ External Rotation 4+ Good+ Internal Rotation 4+ Good+ PT-OP-Q Treatments Start: 07/25/24 13:52 Freq: Status: Active Protocol: Document 09/10/24 07:32 SP (Rec: 09/10/24 08:21 SP [id number]) Therapeutic Exercises Prone Exercises Push up Prone Exercise Name off feet Side bilateral Equipment Used yoga mat (home-Uses Iron Chest Master on floor dynamic adduction top pos. ) Reps/Minutes 10 reps Comments cued PPT for neutral back decreased arch, no pain I's, Y's, T's Prone Exercise Name Prone I's, Y's, T's - flexion, horizontal abduction, extension Side left Resistance Ts Is 5# DB, Ys 3# DB Equipment Used over 65cm tball Reps/Minutes x15 each Comments cued chin tuck head back CS neutral, feet little increase FAMILIA wall vs floor Standing Exercises FF & Abduction wt Standing Exercise Name added to HEP declined HO Side bilateral Resistance 1. 5# DB each direction 2. TB #3>#4> #5 dark green FF, #4 Abduction Reps/Minutes 10 reps each set resistance fine challenge with good form Comments Cued head up, level shld whld lifting resistance over head each direction REverse Fly Standing Exercise Name reviewed Side bilateral Resistance TB #5 maroon Reps/Minutes 15 reps Comments cued head up, good shld form with no pain Rows Standing Exercise Name Rows- progressed to high rows Side bilateral Resistance Lv 5 maroon Reps/Minutes 2x15 Comments cued head up, elbow elevated at side with shld level impr form reps-no pain Manual Therapy Treatment Consent Patient gave verbal consent for manual Yes treatment Soft Tissue Mobilization L shld Body Location pec major, prox bicep, Deltoid , distal infrasp, Mobilization Type Rolling,Sustained Pressure, Other Body Position R SL Comments gentle STMs with scapulothoracic Joint Mobilizations Scapulothoracic Joint L Scapulothoracic Direction adduction and depression Grade II Body Position R SL PT-OP-T Assessment and Plan Start: 07/25/24 13:52 Freq: Status: Active Protocol: Document 09/10/24 07:32 SP (Rec: 09/10/24 08:21 SP [id number]) Physical Therapy Assessment Goals One Impairment Pt does not have an appropriate Home Exercise Program Short Term Goal (STG) Pt to be independent and compliant with an appropriate HEP STG Duration 08/25/24 Three Impairment Pt notes returning difficulty of using left arm to close truck door Back Tender Paper Machine Goal (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 LTG Duration 09/24/24 Two Impairment Strongly positive left Empty Can test Fpc Goal (LTG) Pt to demonstrate decreased inflammation in left shoulder by presenting with negative Empty Can and Jean-Baptiste-Zuhair tests LTG Duration 09/24/24 Assessment Summary Assessment Pt improved form corrections with occasional cuing for head and LS neutral positioning wtih good toleratance progression of resisted FF and abduction prone over tball and standing today. Reviewed self pushups stated doing home with dynamic system (will bring next tx to assess form) occasional cue PPT to support back. He reports no pain just muscle tiring end tx. Physical Therapy Plan Frequency and Duration Frequency of Treatment 1x/Week Plan of Care Start Date 07/25/24 Plan of Care End Date 09/24/24 Therapeutic Interventions Therapeutic Interventions Home Exercise Program,Joint Mobilizations,Manual Therapy, Neuromuscular Re-education, Patient/Caregiver Education, Self-Care/Home Management,Soft Tissue Mobilization,Taping, Therapeutic Activities, Therapeutic Exercises Modalities Cold Pack/Ice Massage,Hot Packs,Ultrasound Next Visit Focus/Plan Next Note Type Treatment Note Next Visit Plan Next: due for 30 day PN. Add body blade, resisted UE wall walking, resisted PNF OH motions for RTC strengthening. Check in on goal able to close truck trunk. POC: mobility/strengthening, pain control
--- NOTE | 2024-09-19 10:23 | PT.OTN ---
Current Diagnoses Pain in left shoulder (09/19/24) Spondylolysis, lumbar region (09/19/24) Spondylosis without myelopathy or radiculopathy, lumbar region (09/19/24) Low back pain, unspecified (09/19/24) Impingement syndrome of left shoulder (09/19/24) Physical Therapy Treatment Note PT-OP-A Visit Information Start: 07/25/24 13:52 Freq: Status: Active Protocol: Document 09/19/24 09:45 DCW (Rec: 09/19/24 10:23 DCW [id number]) Out-Patient Physical Therapy Visit Information Visit Information Visit Type Progress Note Visit Note Student PT Santostodd EncarnacionCortez participated in treatment session w/ PT direct supervision and direction Visit Start Time 09:45 Visit Stop Time 10:15 Visit Number 8 Number of SPORTS MARKETING SPECIALIST Visits 0 Evaluation Information Evaluation Date 07/25/24 PT-OP-B Current Condition Start: 07/25/24 13:52 Freq: Status: Active Protocol: Document 07/25/24 12:20 DCW (Rec: 07/25/24 14:27 DCW [id number]) Current Condition History of Current Condition Onset Date Five month history Current Complaints Shoulder pain, Low back pain History of Current Condition Pt is a 44 year old male presenting with a five month history of left shoulder pain. Reports insidious onset, started out just a little sore , was an inconvenience, but worsened over time, getting ot the point where he was unable to reach out and close his truck door. Received a steroid injection in March, reports it helped for a week or two, but then slowly began worsening again. It is still not as bad as it was at its worst, but is still quite sore . Pt notes that the pain makes it so there's a lot I don't want to do because of the shoulder, but I have to do it, so I just force it. Pt notes that he has a lot of PTSD/ anxiety related symptoms, one of which is difficulty defining timelines, so all his stated timelines are self- admittedly approximations. Does note a long-standing history of low back pain, which involves pars defects and reported history of spina bifida in L3-5. Pt reports he was undergoing nerve ablations every 3-6 months, but then switched doctors, and was told it should be lasting longer, so he underwent a different procedure, which seems to have eliminated a majority of his radicular symptoms. Pt notes the low back pain is so chronic, he'd like to focus more on the shoulder pain. Prior Treatments and Tests Lumbar MRI: IMPRESSION: 1. Stable mild lower lumbar spine degenerative disc disease as described above. 2. Again seen pars interarticularis defects at L5-S1. per Song Arthur M.D. on 03/28/2024 Shoulder x-ray: IMPRESSION: 1 . No acute fracture or dislocation of the left shoulder. 2. Punctate subcutaneous metallic debris around the lateral aspect of the shoulder. Barry Jean M.D. on 04/01/2024 Lumbar x-ray: IMPRESSION: Mild bilateral L4-L5 foraminal narrowing with bilateral L5- S1 pars interarticularis defects. per Barry Jean M.D. on 06/04/2024 Treatment Goals Patient/Caregiver Goals Decrease shoulder pain PT-OP-C Subjective Start: 07/25/24 13:52 Freq: Status: Active Protocol: Document 09/19/24 09:45 DCW (Rec: 09/19/24 10:23 DCW [id number]) OP-PT Subjective Patient Comments Patient Comments I do feel like what we're working on is making a difference. Admits it feels more like nerve pain at this point. Requests staying away from low back activities, notes he is just barely dealing with it right now, does not want to flare it up. PT-OP-F Manual Assessment Start: 07/25/24 13:52 Freq: Status: Active Protocol: Document 07/25/24 12:20 DCW (Rec: 07/25/24 14:27 DCW [id number]) Manual Assessments Soft Tissue Assessment Soft Tissue Mobility Assessment Mild tenderness to palpation along subacromial space Joint Mobility Assessment Joint Mobility Assessment Passive shoulder ROM largely WNL and pain-free PT-OP-J Posture/Palpation/Skin Start: 07/25/24 14:28 Freq: Status: Active Protocol: Document 07/25/24 12:20 DCW (Rec: 07/25/24 14:28 DCW [id number]) Posture Evaluation Position Sitting Shoulder Posture (L) Rounded,(L) Forward Scapula Posture (L) Protracted PT-OP-L Special Tests Start: 07/25/24 13:52 Freq: Status: Active Protocol: Document 07/25/24 12:20 DCW (Rec: 07/25/24 14:27 DCW [id number]) Special Tests Shoulder Special Tests Passive ER Rotator Cuff Test Results Negative Painful Arc Test Results Positive Left Lift-Off Rotator Cuff Test Results Negative Jean-Baptiste Zuhair Impingement Test Results Strongly Positive Left Grind Labrum Test Results Negative Empty Can Test Results Strongly Positive Left Belly Press Test Results Positive Left Anterior Draw Test Results Negative AC Joint Compression Test Results Negative PT-OP-M Strength Start: 07/25/24 13:52 Freq: Status: Active Protocol: Document 07/25/24 12:20 DCW (Rec: 07/25/24 14:27 DCW [id number]) Shoulder Strength Shoulder Manual Muscle Testing Right Flexion 4+ Good+ Abduction (C5) 4+ Good+ External Rotation 4+ Good+ Internal Rotation 4+ Good+ Left Flexion 4+ Good+ Abduction (C5) 4+ Good+ External Rotation 4+ Good+ Internal Rotation 4+ Good+ PT-OP-Q Treatments Start: 07/25/24 13:52 Freq: Status: Active Protocol: Document 09/19/24 09:45 DCW (Rec: 09/19/24 10:23 [facility] [id number]) Manual Therapy Treatment Consent Patient gave verbal consent for manual Yes treatment Soft Tissue Mobilization L shld Body Location pec major, prox bicep, Deltoid , distal infrasp, Mobilization Type Rolling,Sustained Pressure, Other Body Position Supine Joint Mobilizations L GH Jt Direction Inferior glide Grade III Body Position Supine Scapulothoracic Joint L Scapulothoracic Direction Lateral Grade III Body Position Supine PT-OP-T Assessment and Plan Start: 07/25/24 13:52 Freq: Status: Active Protocol: Document 09/19/24 09:45 DCW (Rec: 09/19/24 10:23 DCW [id number]) Physical Therapy Assessment Impairments Impairments Functional Activities, Functional Mobility,Pain, Posture,Soft Tissue Mobility, Strength Goals One Impairment Pt does not have an appropriate Home Exercise Program Short Term Goal (STG) Pt to be independent and compliant with an appropriate HEP STG Duration Met Three Impairment Pt notes returning difficulty of using left arm to close truck door Pin Drafting Machine Operator Goal (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 LTG Duration 11/03/24 - occasionally improved Two Impairment Strongly positive left Empty Can test Pin Drafting Machine Operator Goal (LTG) Pt to demonstrate decreased inflammation in left shoulder by presenting with negative Empty Can and Jean-Baptiste-Zuhair tests LTG Duration 11/03/24 Assessment Summary Assessment Pt showing some good improvement in symptoms today, however pt's symptoms are very largely varied day-to-day , so true progress difficult to determine. Pt presenting today with significant decrease in pain and soft tissue tone. Has been compliant with exercise, however still hesitant to do much activity due to fear of low back flare-up. Will likely continue to benefit from skilled therapeutic intervention to focus on pain and tone management, postural and positional education, strengthening and stabilization of shoulder, and improving functional mobility . Physical Therapy Plan Frequency and Duration Frequency of Treatment 1x/Week Plan of Care Start Date 09/19/24 Plan of Care End Date 11/03/24 Therapeutic Interventions Therapeutic Interventions Home Exercise Program,Joint Mobilizations,Manual Therapy, Neuromuscular Re-education, Patient/Caregiver Education, Self-Care/Home Management,Soft Tissue Mobilization,Taping, Therapeutic Activities, Therapeutic Exercises Modalities Cold Pack/Ice Massage,Hot Packs,Ultrasound Next Visit Focus/Plan Next Note Type Treatment Note Next Visit Plan Next: Add body blade, resisted UE wall walking, resisted PNF OH motions for RTC strengthening. Check in on goal able to close truck trunk . POC: mobility/strengthening, pain control
--- NOTE | 2024-11-18 16:54 | PT.OTN ---
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) Low back pain, unspecified (11/18/24) Impingement syndrome of left shoulder (11/18/24) Physical Therapy Treatment Note PT-OP-A Visit Information Start: 07/25/24 13:52 Freq: Status: Active Protocol: Document 11/18/24 16:15 DCW (Rec: 11/18/24 16:54 DCW [id number]) Out-Patient Physical Therapy Visit Information Visit Information Visit Type Progress Note Visit Start Time 16:15 Visit Stop Time 16:45 Visit Number 9 Number of METAL CASKET MAKER Visits 0 Evaluation Information Evaluation Date 07/25/24 PT-OP-B Current Condition Start: 07/25/24 13:52 Freq: Status: Active Protocol: Document 07/25/24 12:20 DCW (Rec: 07/25/24 14:27 DCW [id number]) Current Condition History of Current Condition Onset Date Five month history Current Complaints Shoulder pain, Low back pain History of Current Pt is a 44 year old male presenting with a five month Condition history of left shoulder pain. Reports insidious onset, started out just a little sore, was an inconvenience, but worsened over time, getting ot the point where he was unable to reach out and close his truck door. Received a steroid injection in March, reports it helped for a week or two, but then slowly began worsening again. It is still not as bad as it was at its worst, but is still quite sore. Pt notes that the pain makes it so there's a lot I don't want to do because of the shoulder, but I have to do it, so I just force it. Pt notes that he has a lot of PTSD/anxiety related symptoms, one of which is difficulty defining timelines, so all his stated timelines are self- admittedly approximations. Does note a long-standing history of low back pain, which involves pars defects and reported history of spina bifida in L3-5. Pt reports he was undergoing nerve ablations every 3-6 months, but then switched doctors, and was told it should be lasting longer, so he underwent a different procedure, which seems to have eliminated a majority of his radicular symptoms. Pt notes the low back pain is so chronic, he'd like to focus more on the shoulder pain. Prior Treatments and Lumbar MRI: IMPRESSION: 1. Stable mild lower lumbar Tests spine degenerative disc disease as described above. 2. Again seen pars interarticularis defects at L5-S1. per Song Arthur M.D. on 03/28/2024 Shoulder x-ray: IMPRESSION: 1. No acute fracture or dislocation of the left shoulder. 2. Punctate subcutaneous metallic debris around the lateral aspect of the shoulder. Barry Jean M.D. on 04/01/2024 Lumbar x-ray: IMPRESSION: Mild bilateral L4-L5 foraminal narrowing with bilateral L5-S1 pars interarticularis defects. per Barry Jean M.D. on 06/04/2024 Treatment Goals Patient/Caregiver Decrease shoulder pain Goals PT-OP-C Subjective Start: 07/25/24 13:52 Freq: Status: Active Protocol: Document 11/18/24 16:15 DCW (Rec: 11/18/24 16:17 DCW [id number]) OP-PT Subjective Patient Comments Patient Comments I've been putting some weight on the past few weeks, and my shoulder has actually been feeling a little better. PT-OP-F Manual Assessment Start: 07/25/24 13:52 Freq: Status: Active Protocol: Document 11/18/24 16:15 DCW (Rec: 11/18/24 16:28 DCW [id number]) Manual Assessments Soft Tissue Assessment Soft Tissue Mobility Mild tenderness to palpation along distal deltoid Assessment Joint Mobility Assessment Joint Mobility Passive shoulder ROM largely WNL and pain-free Assessment PT-OP-J Posture/Palpation/Skin Start: 07/25/24 14:28 Freq: Status: Active Protocol: Document 11/18/24 16:15 DCW (Rec: 11/18/24 16:28 DCW [id number]) Posture Evaluation Position Sitting Shoulder Posture (L) Rounded,(L) Forward Scapula Posture (L) Protracted PT-OP-L Special Tests Start: 07/25/24 13:52 Freq: Status: Active Protocol: Document 11/18/24 16:15 DCW (Rec: 11/18/24 16:28 DCW [id number]) Special Tests Shoulder Special Tests Passive ER Rotator Cuff Test Results Negative Painful Arc Test Results Negative Lift-Off Rotator Cuff Test Results Negative Jean-Baptiste Zuhair Impingement Test Results Mildly Positive Left Grind Labrum Test Results Negative Empty Can Test Results Negative Belly Press Test Results Mildly Positive Anterior Draw Test Results Negative AC Joint Compression Test Results Negative PT-OP-M Strength Start: 07/25/24 13:52 Freq: Status: Active Protocol: Document 11/18/24 16:15 DCW (Rec: 11/18/24 16:28 DCW [id number]) Shoulder Strength Shoulder Manual Muscle Testing Right Flexion 4+ Good+ Abduction (C5) 4+ Good+ External Rotation 4+ Good+ Internal Rotation 4+ Good+ Left Flexion 4+ Good+ Abduction (C5) 4+ Good+ External Rotation 4+ Good+ Internal Rotation 4+ Good+ PT-OP-Q Treatments Start: 07/25/24 13:52 Freq: Status: Active Protocol: Document 11/18/24 16:15 DCW (Rec: 11/18/24 16:54 DCW [id number]) Therapeutic Exercises Sitting Exercises UE PNF Sitting Exercise UE PNF D1/D2 Name Side left Resistance Red 3.3# ball Standing Exercises Flexion Standing Exercise Shoulder Flexion Name Side bilateral Resistance Lv 3 Comments Stopped d/t increased L shoulder ache Abduction Standing Exercise Shoulder Abduction Name Side bilateral Resistance Lv 3 Manual Therapy Treatment Consent Patient gave verbal Yes consent for manual treatment Soft Tissue Mobilization L shld Body Location pec major, prox bicep, Deltoid, distal infrasp, Mobilization Type Rolling,Sustained Pressure,Other Body Position Supine Joint Mobilizations L GH Jt Direction Inferior glide Grade III Body Position Supine Scapulothoracic Joint L Scapulothoracic Direction Lateral Grade III Body Position Supine PT-OP-T Assessment and Plan Start: 07/25/24 13:52 Freq: Status: Active Protocol: Document 11/18/24 16:15 DCW (Rec: 11/18/24 16:54 DCW [id number]) Physical Therapy Assessment Impairments Impairments Functional Activities,Functional Mobility,Pain,Posture, Soft Tissue Mobility,Strength Goals One Impairment Pt does not have an appropriate Home Exercise Program Short Term Goal (STG Pt to be independent and compliant with an appropriate ) HEP STG Duration Met Three Impairment Pt notes returning 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 LTG Duration 12/19/24 - occasionally improved Two Impairment Strongly positive left Empty Can test Residential Goal (LTG) Pt to demonstrate decreased inflammation in left shoulder by presenting with negative Empty Can and Jean-Baptiste-Zuhair tests LTG Duration 01/19/25 - Greatly improved Assessment Summary Assessment Pt much better with everything upon testing, nearly all special tests either no longer positive or much less severely positive. ROM continues to be nearly WNL. Pt notes some pain is more along distal deltoid vs prior location of subacromial space. Did note increased achiness following testing today. Would likely benefit at this pont from further advanced imaging of left shoulder. Physical Therapy Plan Frequency and Duration Frequency of 1x/Week Treatment Plan of Care Start 11/18/24 Date Plan of Care End 01/19/25 Date Therapeutic Interventions Therapeutic Home Exercise Program,Joint Mobilizations,Manual Interventions Therapy,Neuromuscular Re-education,Patient/Caregiver Education,Self-Care/Home Management,Soft Tissue Mobilization,Taping,Therapeutic Activities,Therapeutic Exercises Modalities Cold Pack/Ice Massage,Hot Packs,Ultrasound Next Visit Focus/Plan Next Note Type Treatment Note Next Visit Plan POC: mobility/strengthening, pain control
--- NOTE | 2024-11-21 14:23 | PT.OTN ---
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) Low back pain, unspecified (11/21/24) Impingement syndrome of left shoulder (11/21/24) Physical Therapy Treatment Note PT-OP-A Visit Information Start: 07/25/24 13:52 Freq: Status: Active Protocol: Document 11/21/24 13:48 DCW (Rec: 11/21/24 14:22 DCW [id number]) Out-Patient Physical Therapy Visit Information Visit Information Visit Type Treatment Note Visit Start Time 13:48 Visit Stop Time 14:20 Visit Number 10 Number of RENAL MEDICINE PHYSICIAN Visits 0 Evaluation Information Evaluation Date 07/25/24 PT-OP-B Current Condition Start: 07/25/24 13:52 Freq: Status: Active Protocol: Document 07/25/24 12:20 DCW (Rec: 07/25/24 14:27 DCW [id number]) Current Condition History of Current Condition Onset Date Five month history Current Complaints Shoulder pain, Low back pain History of Current Pt is a 44 year old male presenting with a five month Condition history of left shoulder pain. Reports insidious onset, started out just a little sore, was an inconvenience, but worsened over time, getting ot the point where he was unable to reach out and close his truck door. Received a steroid injection in March, reports it helped for a week or two, but then slowly began worsening again. It is still not as bad as it was at its worst, but is still quite sore. Pt notes that the pain makes it so there's a lot I don't want to do because of the shoulder, but I have to do it, so I just force it. Pt notes that he has a lot of PTSD/anxiety related symptoms, one of which is difficulty defining timelines, so all his stated timelines are self- admittedly approximations. Does note a long-standing history of low back pain, which involves pars defects and reported history of spina bifida in L3-5. Pt reports he was undergoing nerve ablations every 3-6 months, but then switched doctors, and was told it should be lasting longer, so he underwent a different procedure, which seems to have eliminated a majority of his radicular symptoms. Pt notes the low back pain is so chronic, he'd like to focus more on the shoulder pain. Prior Treatments and Lumbar MRI: IMPRESSION: 1. Stable mild lower lumbar Tests spine degenerative disc disease as described above. 2. Again seen pars interarticularis defects at L5-S1. per Song Arthur M.D. on 03/28/2024 Shoulder x-ray: IMPRESSION: 1. No acute fracture or dislocation of the left shoulder. 2. Punctate subcutaneous metallic debris around the lateral aspect of the shoulder. Barry Jean M.D. on 04/01/2024 Lumbar x-ray: IMPRESSION: Mild bilateral L4-L5 foraminal narrowing with bilateral L5-S1 pars interarticularis defects. per Barry Jean M.D. on 06/04/2024 Treatment Goals Patient/Caregiver Decrease shoulder pain Goals PT-OP-C Subjective Start: 07/25/24 13:52 Freq: Status: Active Protocol: Document 11/21/24 13:48 DCW (Rec: 11/21/24 14:22 DCW [id number]) OP-PT Subjective Patient Comments Patient Comments Pt reports his shoulder had increased irritation following his last visit. Feeling better now. Notes ROM is feeling better, but feels increased pain with thumb down lifting his arm up, or going into shoulder flexion when his elbow is bent. PT-OP-F Manual Assessment Start: 07/25/24 13:52 Freq: Status: Active Protocol: Document 11/18/24 16:15 DCW (Rec: 11/18/24 16:28 DCW [id number]) Manual Assessments Soft Tissue Assessment Soft Tissue Mobility Mild tenderness to palpation along distal deltoid Assessment Joint Mobility Assessment Joint Mobility Passive shoulder ROM largely WNL and pain-free Assessment PT-OP-J Posture/Palpation/Skin Start: 07/25/24 14:28 Freq: Status: Active Protocol: Document 11/18/24 16:15 DCW (Rec: 11/18/24 16:28 DCW [id number]) Posture Evaluation Position Sitting Shoulder Posture (L) Rounded,(L) Forward Scapula Posture (L) Protracted PT-OP-L Special Tests Start: 07/25/24 13:52 Freq: Status: Active Protocol: Document 11/18/24 16:15 DCW (Rec: 11/18/24 16:28 DCW [id number]) Special Tests Shoulder Special Tests Passive ER Rotator Cuff Test Results Negative Painful Arc Test Results Negative Lift-Off Rotator Cuff Test Results Negative Jean-Baptiste Zuhair Impingement Test Results Mildly Positive Left Grind Labrum Test Results Negative Empty Can Test Results Negative Belly Press Test Results Mildly Positive Anterior Draw Test Results Negative AC Joint Compression Test Results Negative PT-OP-M Strength Start: 07/25/24 13:52 Freq: Status: Active Protocol: Document 11/18/24 16:15 DCW (Rec: 11/18/24 16:28 DCW [id number]) Shoulder Strength Shoulder Manual Muscle Testing Right Flexion 4+ Good+ Abduction (C5) 4+ Good+ External Rotation 4+ Good+ Internal Rotation 4+ Good+ Left Flexion 4+ Good+ Abduction (C5) 4+ Good+ External Rotation 4+ Good+ Internal Rotation 4+ Good+ PT-OP-Q Treatments Start: 07/25/24 13:52 Freq: Status: Active Protocol: Document 11/21/24 13:48 DCW (Rec: 11/21/24 14:22 DCW [id number]) Manual Therapy Treatment Consent Patient gave verbal Yes consent for manual treatment Soft Tissue Mobilization L shld Body Location pec major, prox bicep, Deltoid, distal infrasp, Mobilization Type Rolling,Sustained Pressure,Other Body Position Supine Joint Mobilizations L GH Jt Direction Inferior glide Grade III Body Position Supine Scapulothoracic Joint L Scapulothoracic Direction Lateral Grade III Body Position Supine Taping Ktaping Body Location L shld Type of Tape Kinesio Tape Skin Inspection normal intact and coloring skin Comments Triple Y-strap shoulder stabilization taping PT-OP-T Assessment and Plan Start: 07/25/24 13:52 Freq: Status: Active Protocol: Document 11/21/24 13:48 DCW (Rec: 11/21/24 14:22 DCW [id number]) Physical Therapy Assessment Impairments Impairments Functional Activities,Functional Mobility,Pain,Posture, Soft Tissue Mobility,Strength Goals One Impairment Pt does not have an appropriate Home Exercise Program Short Term Goal (STG Pt to be independent and compliant with an appropriate ) HEP STG Duration Met Three Impairment Pt notes returning difficulty of 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 LTG Duration 12/19/24 - occasionally improved Two Impairment Strongly positive left Empty Can test Learning [employer] Specialist Goal (LTG) Pt to demonstrate decreased inflammation in left shoulder by presenting with negative Empty Can and Jean-Baptiste-Zuhair tests LTG Duration 01/19/25 - Greatly improved Assessment Summary Assessment Pt continues to report same soreness off and on. Since he felt flared-up following last visit, avoided TherEx today. Focused on STM, joint mobs, and taping. Waiting for further auth for more visits, hoping to get MRI in the mean time. Physical Therapy Plan Frequency and Duration Frequency of 1x/Week Treatment Plan of Care Start 11/18/24 Date Plan of Care End 01/19/25 Date Therapeutic Interventions Therapeutic Home Exercise Program,Joint Mobilizations,Manual Interventions Therapy,Neuromuscular Re-education,Patient/Caregiver Education,Self-Care/Home Management,Soft Tissue Mobilization,Taping,Therapeutic Activities,Therapeutic Exercises Modalities Cold Pack/Ice Massage,Hot Packs,Ultrasound Next Visit Focus/Plan Next Note Type Treatment Note Next Visit Plan POC: mobility/strengthening, pain control
--- NOTE | 2025-02-02 10:00 | PT.OPDS ---
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) Low back pain, unspecified (11/21/24) Impingement syndrome of left shoulder (11/21/24) Visit Care Team Role Provider Type Aravind Mederos MD Attending Provider Physician Family Provider Primary Care Provider Referring Provider Specialty: [facility] Address: [address] [place] [address], [facility] Email: [email or web address] Visit Number Visit Number 10 Discharge Summary PT-OP-A Visit Information Start: 07/25/24 13:52 Freq: Status: Active Protocol: Document 11/21/24 13:48 DCW (Rec: 11/21/24 14:22 DCW [id number]) Out-Patient Physical Therapy Visit Information Visit Information Visit Type Treatment Note Visit Start Time 13:48 Visit Stop Time 14:20 Visit Number 10 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 Reports insidious onset, started out just a little sore, was an inconvenience, but worsened over time, getting ot the point where he was unable to reach out and close his truck door. Received a steroid injection in March, reports it helped for a week or two, but then slowly began worsening again. It is still not as bad as it was at its worst, but is still quite sore. Pt notes that the pain makes it so there's a lot I don't want to do because of the shoulder, but I have to do it, so I just force it. Pt notes that he has a lot of PTSD/anxiety related symptoms, one of which is difficulty defining timelines, so all his stated timelines are self- admittedly approximations. Does note a long-standing history of low back pain, which involves pars defects and reported history of spina bifida in L3-5. Pt reports he was undergoing nerve ablations every 3-6 months, but then switched doctors, and was told it should be lasting longer, so he underwent a different procedure, which seems to have eliminated a majority of his radicular symptoms. Pt notes the low back pain is so chronic, he'd like to focus more on the shoulder pain. Prior Treatments and Lumbar MRI: IMPRESSION: 1. Stable mild lower lumbar Tests spine degenerative disc disease as described above. 2. Again seen pars interarticularis defects at L5-S1. per Song Arthur M.D. on 03/28/2024 Shoulder x-ray: IMPRESSION: 1. No acute fracture or dislocation of the left shoulder. 2. Punctate subcutaneous metallic debris around the lateral aspect of the shoulder. Barry Jean M.D. on 04/01/2024 Lumbar x-ray: IMPRESSION: Mild bilateral L4-L5 foraminal narrowing with bilateral L5-S1 pars interarticularis defects. per Barry Jean M.D. on 06/04/2024 Treatment Goals Patient/Caregiver Decrease shoulder pain Goals PT-OP-C Subjective Start: 07/25/24 13:52 Freq: Status: Active Protocol: Document 11/21/24 13:48 DCW (Rec: 11/21/24 14:22 DCW [id number]) OP-PT Subjective Patient Comments Patient Comments Pt reports his shoulder had increased irritation following his last visit. Feeling better now. Notes ROM is feeling better, but feels increased pain with thumb down lifting his arm up, or going into shoulder flexion when his elbow is bent. PT-OP-F Manual Assessment Start: 07/25/24 13:52 Freq: Status: Active Protocol: Document 11/18/24 16:15 DCW (Rec: 11/18/24 16:28 DCW [id number]) Manual Assessments Soft Tissue Assessment Soft Tissue Mobility Mild tenderness to palpation along distal deltoid Assessment Joint Mobility Assessment Joint Mobility Passive shoulder ROM largely WNL and pain-free Assessment PT-OP-J Posture/Palpation/Skin Start: 07/25/24 14:28 Freq: Status: Active Protocol: Document 11/18/24 16:15 DCW (Rec: 11/18/24 16:28 [facility] [id number]) Posture Evaluation Position Sitting Shoulder Posture (L) Rounded,(L) Forward Scapula Posture (L) Protracted PT-OP-L Special Tests Start: 07/25/24 13:52 Freq: Status: Active Protocol: Document 11/18/24 16:15 DCW (Rec: 11/18/24 16:28 [facility] [id number]) Special Tests Shoulder Special Tests Passive ER Rotator Cuff Test Results Negative Painful Arc Test Results Negative Lift-Off Rotator Cuff Test Results Negative Jean-Baptiste Zuhair Impingement Test Results Mildly Positive Left Grind Labrum Test Results Negative Empty Can Test Results Negative Belly Press Test Results Mildly Positive Anterior Draw Test Results Negative AC Joint Compression Test Results Negative PT-OP-M Strength Start: 07/25/24 13:52 Freq: Status: Active Protocol: Document 11/18/24 16:15 DCW (Rec: 11/18/24 16:28 [facility] [id number]) Shoulder Strength Shoulder Manual Muscle Testing Right Flexion 4+ Good+ Abduction (C5) 4+ Good+ External Rotation 4+ Good+ Internal Rotation 4+ Good+ Left Flexion 4+ Good+ Abduction (C5) 4+ Good+ External Rotation 4+ Good+ Internal Rotation 4+ Good+ PT-OP-T Assessment and Plan Start: 07/25/24 13:52 Freq: Status: Active Protocol: Document 02/02/25 09:59 DCW (Rec: 02/02/25 10:00 [facility] [id number]) Physical Therapy Assessment Assessment Summary Assessment Pt has not been seen in two months. Will require a new referral in order to return to skilled therapy. Will be discharged at this time. Physical Therapy Plan Discharge Physical Therapy Discharge Reasons No Longer Attending PT Next Visit Focus/Plan Next Note Type Discharge Summary
== END 2025-02-03 10:54 | disposition home or self-care (01) ==
LOC: PHYS 13:45
PROVIDERS: Family Provider Family Medicine; PCP Family Medicine; Referring Provider Family Medicine; Visit Provider Family Medicine
DX: M25.512 Pain in left shoulder (principal); M75.42 Impingement syndrome of left shoulder; M43.06 Spondylolysis, lumbar region; M47.816 Spondylosis without myelopathy or radiculopathy, lumbar region; M54.50 Low back pain, unspecified
CPT/HCPCS: 97110; 97140; 97163

== ENCOUNTER → 2025-01-09 07:41 | Outpatient (CLI) | payer OTHER, SELFPAY ==
--- NOTE | 2025-01-09 19:37 | DI.MRI.S_ITS ---
PROCEDURE: MR SHOULDER LT WO CON INDICATIONS: L shoulder pain despite PT TECHNIQUE: Noncontrast oblique coronal T2 fast spin echo with fat saturation, oblique sagittal T1 spin echo and T2 fast spin echo with fat saturation, axial T1 spin echo and T2 fast spin echo with fat saturation through the shoulder. COMPARISON: [facility], CR, XR SHOULDER LT MIN 2V, 04/01/2024, 12:17. FINDINGS: Image quality: Excellent. Rotator cuff: Mild T2 signal elevation diffusely throughout the supraspinatus and infraspinatus tendons at the humeral insertion sites extending the musculotendinous junctions, indicating tendinopathy. No evidence of tears involving the supraspinatus, infraspinatus, subscapularis, and teres minor tendons. No rotator cuff atrophy. Bones and bursae: No bone marrow contusions or fractures. Mild glenohumeral and moderate acromioclavicular joint degeneration. The acromion demonstrates conventional anatomy, without an os acromiale. No pathologic subacromial-subdeltoid or subcoracoid bursal fluid is present. Capsule and soft tissues: There is mild amorphous high signal intensity within the posterosuperior labrum. The long head of the biceps tendon demonstrates normal location and morphology. The rotator interval appears normal, without fibrosis. The coracohumeral ligament is normal in thickness. IMPRESSION: 1. Acromioclavicular and glenohumeral joint osteoarthritis. 2. Supraspinatus and infraspinatus tendinopathy. No rotator cuff tear. 3. Possible posterosuperior labral tearing. Dictated by: Samantha Arita M.D. on 01/12/2025 at 13:34 Approved by: Saamntha Arita M.D. on 01/12/2025 at 13:36
== END ==
PROVIDERS: PCP Family Medicine; Referring Provider Family Medicine; Visit Provider Family Medicine
DX: M19.012 Primary osteoarthritis, left shoulder (principal); M25.512 Pain in left shoulder
CPT/HCPCS: 73221

== ENCOUNTER → 2025-01-16 09:40 | Outpatient (CLI) | payer OTHER, SELFPAY ==
[2025-01-16 10:10] LABS: Add Manual Diff / Slide Review NO; Hematocrit 43.7 % (41-53); Hemoglobin 15.0 g/dL (13.5-17.5); Lymphocytes Absolute Auto 1500 /uL (1100-4500); Mean Corpuscular HGB Conc 34.4 % (30-36); Mean Corpuscular Hemoglobin 32.1 PG (26-34); Mean Corpuscular Volume 93.4 fL (80-100); Platelet Count 164 X10^3/uL (150-400)
[2025-01-16 10:47] LABS: Alanine Aminotransferase 26 IU/L (<50); Albumin 4.6 g/dL (3.5-5.0); Albumin Globulin Ratio 1.8 (1.0-2.8); Alkaline Phosphatase 62 U/L (38-126); Blood Urea Nitrogen 15 mg/dL (9-20); Calcium 9.3 mg/dL (8.4-10.2); Carbon Dioxide 26 mmol/L (22-32); Chloride 104 mmol/L (98-107); Cholesterol 251 mg/dL (140-199); Estimated Glomerular Filt Rate > 60 mL/min (>60); Globulin 2.5 g/dL (1.7-4.1); Glucose 85 mg/dL (70-99); HDL Cholesterol 55 mg/dL (40-60); HEMOLYSIS < 15 (0-50); Potassium 4.3 mmol/L (3.4-5.1); Sodium 137 mmol/L (137-145); Total Protein 7.1 g/dL (6.3-8.2); Triglycerides 83 mg/dL (35-150)
[2025-01-16 11:07] LABS: Microalbumi Creatinin Ratio Ur 10.0 ug/mg CR (<30)
[2025-01-16 11:14] LABS: TSH w/ Reflex to FT4 1.11 uIU/mL (0.47-4.68)
== END ==
PROVIDERS: PCP Family Medicine; Referring Provider Family Medicine; Visit Provider Family Medicine
DX: F41.9 Anxiety disorder, unspecified (principal); G47.00 Insomnia, unspecified; M54.16 Radiculopathy, lumbar region; M54.50 Low back pain, unspecified; F43.10 Post-traumatic stress disorder, unspecified
CPT/HCPCS: 36415; 80053; 80061; 82043; 82172; 82570; 84443; 85025